=== PATIENT | male | born 1965 | race Caucasian/White ===

== ENCOUNTER 2016-12-20 22:29 | Emergency (ER) | payer OTHER ==
[2016-12-20 22:53] VITALS: RESP 18; TEMP 98.2
--- NOTE | 2016-12-21 00:30 | ED ---
Skin/Abscess/FB HPI - General Chief complaint: Skin/Abscess/Foreign Body Stated complaint: abcess right elbow Time Seen by Provider: 12/20/16 23:25 Source: patient, RN notes reviewed, old records reviewed Mode of arrival: ambulatory Limitations: no limitations - History of Present Illness Initial comments: This is a 51 year old male with right elbow pain and swelling for one hour. Patient reports he was playing cards and had his elbows on the table. Patient states that he has no fever, chills, decreased range of motion. Patient states that he feels a fluxtuant area on the elbow. He is right handed. Patient also states that he is switching doctors and needs refills of his depression and anxiety medication. He states his insurance swiched his PCP and he has an appointment with another doctor on December 31. Patient denies any fevers or chills, chest pain, shortness of breath, nausea, vomiting, sinus congestion, or other symptoms. - Related Data Home Medications Medication Instructions Recorded Confirmed ALPRAZolam [Xanax] 0.5 mg PO DAILY 08/01/16 12/20/16 FLUoxetine HCL [PROzac] 20 mg PO DAILY 08/01/16 12/20/16 QUEtiapine [SEROquel] 25 mg PO DAILY 08/01/16 12/20/16 Previous Rx's Medication Instructions Recorded ALPRAZolam [ALPRAZolam XR] 0.5 mg PO DAILY #2 tab 12/21/16 ALPRAZolam [Xanax] 0.5 mg PO DAILY PRN #12 tablet 12/21/16 FLUoxetine HCL [PROzac] 20 mg PO DAILY #15 cap 12/21/16 Allergies Allergy/AdvReac Type Severity Reaction Status Date / Time Penicillins Allergy hives Verified 12/20/16 22:53 Review of Systems ROS Statement: Those systems with pertinent positive or pertinent negative responses have been documented in the HPI. ROS Other: All systems not noted in ROS Statement are negative. Past Medical History Past Medical History: Asthma, COPD, Musculoskeletal Disorder Additional Past Medical History / Comment(s): hand pain History of Any Multi-Drug Resistant Organisms: None Reported Past Surgical History: Ear Surgery, Orthopedic Surgery Additional Past Surgical History / Comment(s): vasectomy/rt shoulder/carpal tunnel,LEFT KNEE SURGERY Past Anesthesia/Blood Transfusion Reactions: No Reported Reaction Past Psychological History: No Psychological Hx Reported Smoking Status: Current every day smoker Past Alcohol Use History: None Reported Additional Past Alcohol Use History / Comment(s): 1ppd since age of 14 Past Drug Use History: Marijuana Additional Drug Use History / Comment(s): every other day - Past Family History Father Family Medical History: Cancer General Exam Limitations: no limitations General appearance: alert, in no apparent distress Head exam: Present: atraumatic, normocephalic, normal inspection Eye exam: Present: normal appearance, PERRL, EOMI. Absent: scleral icterus, conjunctival injection, periorbital swelling ENT exam: Present: normal exam, mucous membranes moist Neck exam: Present: normal inspection. Absent: tenderness, meningismus, lymphadenopathy Respiratory exam: Present: normal lung sounds bilaterally. Absent: respiratory distress, wheezes, rales, rhonchi, stridor Cardiovascular Exam: Present: regular rate, normal rhythm, normal heart sounds. Absent: systolic murmur, diastolic murmur, rubs, gallop, clicks GI/Abdominal exam: Present: soft, normal bowel sounds. Absent: distended, tenderness, guarding, rebound, rigid Extremities exam: Present: normal inspection, full ROM, normal capillary refill. Absent: tenderness, pedal edema, joint swelling, calf tenderness Right Elbow exam: Present: swelling (evidence of olecranon bursitis. ). Absent: normal inspection Forearm Wrist exam: Present: normal inspection, full ROM Hand Wrist exam: Present: normal inspection, full ROM Back exam: Present: normal inspection Neurological exam: Present: alert, oriented X3, CN II-XII intact Psychiatric exam: Present: normal affect, normal mood Skin exam: Present: warm, dry, intact, normal color. Absent: rash Course Vital Signs 12/20/16 12/21/16 22:51 00:41 Temperature 98.2 F 98.2 F Pulse Rate 76 69 Respiratory 18 18 Rate Blood Pressure 133/76 152/68 O2 Sat by Pulse 968 H 98 Oximetry Medical Decision Making - Medical Decision Making Patient is a 51 year old male with olecranon bursitis, no erythema or fever or decreased range of motion.Patient denies any other symptoms besidesneeding medication refill. Patient given Rx for prozac and anxiety medication. Discussed follow up with orthopedic for drainage, and discussed return paramteres. Patient agrees to treatment plan and will comply. Disposition Clinical Impression: Olecranon bursitis, Medication refill Disposition: HOME SELF-CARE Condition: Good Instructions: Elbow Bursitis (ED), Medicine Refill (ED) Additional Instructions: Wear Karthik wrap is much as possible. Follow-up with primary care provider if symptoms continue to persist. Take anti-inflammatory medications. Prescriptions: ALPRAZolam [Xanax] 0.5 mg PO DAILY PRN #12 tablet PRN Reason: Anxiety ALPRAZolam [ALPRAZolam XR] 0.5 mg PO DAILY #2 tab FLUoxetine HCL [PROzac] 20 mg PO DAILY #15 cap Referrals: Mona Zhou MD [Primary Care Provider] - 1-2 days Derick Victoria DO [Doctor of Osteopathic Medicine] - 1-2 days Time of Disposition: 00:28
--- NOTE | 2016-12-21 00:39 | XR ---
EXAM: XR Right Elbow Complete, 3 or More Views. CLINICAL HISTORY: Reason: Pain TECHNIQUE: Frontal, lateral and oblique views of the right elbow. COMPARISON: No relevant prior studies available. FINDINGS: Bones/joints: Unremarkable. No acute fracture. No dislocation. Soft tissues: Unremarkable. IMPRESSION: No acute abnormality in the right elbow. If symptoms persist, consider splinting with repeat radiographs in 10-14 days.
[2016-12-21 00:41] VITALS: BP 152/68; PULSE 69
== END 2016-12-21 00:41 | disposition home or self-care (01) ==
LOC: EC 22:29
DX: M70.21 Olecranon bursitis, right elbow (principal); F17.200 Nicotine dependence, unspecified, uncomplicated; F41.9 Anxiety disorder, unspecified; F32.9 Major depressive disorder, single episode, unspecified; Z76.0 Encounter for issue of repeat prescription; Z88.0 Allergy status to penicillin; Z79.899 Other long term (current) drug therapy
CPT/HCPCS: 99283

== ENCOUNTER → 2017-03-05 | Outpatient (CLI) | payer OTHER ==
--- NOTE | 2017-03-05 23:19 | MR ---
EXAMINATION TYPE: MR brain wo/w con DATE OF EXAM: 03/05/2017 COMPARISON: NONE HISTORY: Headaches, Previous MRI on PACS TECHNIQUE: Multiplanar, multisequence images of the brain and brainstem is performed without and with IV contras t, utilizing 15 mL intravenous MultiHance . FINDINGS: There are scattered multiple high signal foci in the T2 and FLAIR images in the periventric ular white matter. The total number is approximately 10. The largest is in the right posterior pariet al lobe and measures 7 mm. Ventricles of normal size. There are small foci of increased signal in the mag bilaterally that measure up to 5 mm. There is no midline shift. There is no evidence of cortica l infarct. Corpus callosum appears normal. Sella turcica is normal. The contrast images show no pathologic enhancement. There is mucosal thickening in the ethmoid sinus. IMPRESSION: There are scattered white matter signal changes probably due to chronic small vessel isch emia. These appear not significantly different than last exam. Ethmoid sinusitis appears stable. No evidence of cortical infarct.
== END | disposition home or self-care (01) ==
LOC: RADMRIMAIN 21:04
PROVIDERS: ATTEND Nurse Practitioner
DX: R90.82 White matter disease, unspecified (principal); R51 Headache; R42 Dizziness and giddiness
CPT/HCPCS: 70553; A9577

== ENCOUNTER → 2017-05-14 | Outpatient (CLI) | payer OTHER ==
[2017-05-14 13:56] VITALS: BP 123/87; PULSE 81; RESP 16; TEMP 97.8
--- NOTE | 2017-05-14 14:10 | P.HPIM ---
History of Present Illness H&P Date: 05/14/17 Chief Complaint: headaches This is a 51-year-old patient referred by Dr. Ball for chronic pain in head and neck, worse on R side. Patient has been taking medications from primary care physician including Fioricet medications with some relief. Patient denies adverse drug effects from medications. Patient also denies new-onset weakness, bowel/bladder incontinence, or any other signs or symptoms of cauda equina syndrome. There are no signs of acute intoxication, and no indications of medication diversion or overuse. Patient notes that pain worsens significantly with BLAH and BLAH, and improves with BLAH, BLAH, and medication. Patient has used several types of medications for pain, including NSAIDS, Fioricet and BENZODIAZEPINES (Xanax). Patient HAS NOT had surgery. Patient HAS NOT had injections previously. Patient HAS NOT had physical therapy recently. In addition to above, 13-point review of systems is also negative for chest pain , shortness of breath, changes in vision, changes in hearing, new onset weakness , abdominal pain, diarrhea, extreme fatigue, malaise, fever, skin changes, homicidal or suicidal ideation, or bowel or bladder incontinence. Vital Signs: Reviewed in EMR Gen: WDWN, AAOx3, NAD HEENT: NCAT, EOMI, hearing grossly normal, tender to palpation over bilateral occipital ridges Pulm: resp unlabored Abd: soft, NT, ND Neck: supple, trachea midline ROM in flexion cervical spine: reduced ROM in extension cervical spine: reduced Cervical paravertebral tenderness: + Cervical Facet tenderness: + R > L Spurling's: neg Neuro: CN II-XII grossly intact, muscle strength lower extremities PRESERVED Past Medical History Past Medical History: Asthma, COPD, Musculoskeletal Disorder Additional Past Medical History / Comment(s): hand pain History of Any Multi-Drug Resistant Organisms: None Reported Past Surgical History: Ear Surgery, Orthopedic Surgery Additional Past Surgical History / Comment(s): vasectomy/rt shoulder/carpal tunnel,LEFT KNEE SURGERY Past Anesthesia/Blood Transfusion Reactions: No Reported Reaction Past Psychological History: No Psychological Hx Reported Smoking Status: Current every day smoker Past Alcohol Use History: None Reported Additional Past Alcohol Use History / Comment(s): 1ppd since age of 14 Past Drug Use History: Marijuana Additional Drug Use History / Comment(s): every other day - Past Family History Father Family Medical History: Cancer Medications and Allergies Home Medications Medication Instructions Recorded Confirmed Type ALPRAZolam [Xanax] 0.5 mg PO DAILY 08/01/16 12/20/16 History FLUoxetine HCL [PROzac] 20 mg PO DAILY 08/01/16 12/20/16 History QUEtiapine [SEROquel] 25 mg PO DAILY 08/01/16 12/20/16 History ALPRAZolam [ALPRAZolam XR] 0.5 mg PO DAILY #2 tab 12/21/16 Rx ALPRAZolam [Xanax] 0.5 mg PO DAILY PRN #12 tablet 12/21/16 Rx FLUoxetine HCL [PROzac] 20 mg PO DAILY #15 cap 12/21/16 Rx Allergies Allergy/AdvReac Type Severity Reaction Status Date / Time Penicillins Allergy hives Verified 12/20/16 22:53 Results Comments: MRI brain without contrast demonstrates moderate mucosal thickening within the ethmoid air cells and mild with the right sphenoid sinus and frontal sinuses quilter intact. There is a mild burden of bright white matter changes and cerebral hemispheres additional foci within the bilateral mag. The findings are nonspecific. There is no acute intracranial abnormality seen. Assessment and Plan (1) Occipital neuralgia Status: Chronic (2) Chronic pain syndrome Status: Chronic Plan: 1. Explanation: Opioid and psychological risk scores were reviewed. Diagnoses , prognoses, and multiple treatment options including but not limited to physical therapy, interventional therapies, adjuvant medical therapies, narcotic medication therapies, and surgery were discussed with the patient and all questions were answered to the patient's satisfaction. 2. Opioid agreement: no opioids prescribed today 3. Counseling: The patient was counseled extensively on SMOKING CESSATION, BODY MASS INDEX, EXERCISE. Specifically, the patient was instructed regarding the importance of smoking cessation, weight control, and exercise in the context of both chronic pain and overall health. 4. Procedures: bilateral occipital nerve block; will consider MRI C-spine if little relief 5. Consultations: none 6. Investigations: none 7. Medications: none prescribed 8. Disposition: f/u for procedure as scheduled PQRS measures: 1-Patient's medications are documented in the chart. 2-Tobacco use is positive/negative, counseling given 3-Patient has not had a pneumococcal vaccine. 4-Advanced care planning discussed, patient unable to give. 5-Opioid contract NOT signed with the patient. 6-Pain positive, follow-up visit or procedure scheduled 7-Patient's blood pressure measured and documented, and patient will follow up with the primary care due to hypertension. 8-Patient's weight was measured, and body mass index ABOVE the normal limits, and counseling was done. Patient instructed to follow up with PCP. 9-Patient WAS NOT identified as an unhealthy alcohol user. Time with Patient: Greater than 30
== END | disposition home or self-care (01) ==
LOC: PNWHC3 13:38
PROVIDERS: ATTEND Anesthesiology
DX: M54.81 Occipital neuralgia (principal); G89.4 Chronic pain syndrome; J44.9 Chronic obstructive pulmonary disease, unspecified; F17.200 Nicotine dependence, unspecified, uncomplicated; Z88.0 Allergy status to penicillin; Z79.899 Other long term (current) drug therapy
CPT/HCPCS: 99211

== ENCOUNTER → 2017-07-08 | Outpatient (CLI) | payer OTHER ==
--- NOTE | 2017-07-08 14:37 | MR ---
EXAMINATION TYPE: MR cervical spine wo con DATE OF EXAM: 07/08/2017 COMPARISON: Correlation MRI brain 03/05/2017 HISTORY: 51-year-old male Spondylosis without myelopathy or radiculopathy, headache. TECHNIQUE: Multiplanar, multisequence images of the cervical spine were acquired. FINDINGS: No craniocervical junction abnormality, predental space widening, or prevertebral soft tissue swellin g. Incidental megacisterna magna versus a right paramedian posterior 3.7 cm arachnoid cyst. Alignment is maintained. Mild heterogeneity of marrow signal without suspicious bone marrow replacement. Intervertebral discs are degenerated and mildly desiccated. Posterior disc bulging at C5-C6 and C6-C7 . Ligamentum flavum thickening at C6/C7. Scattered mild facet and uncovertebral joint arthropathy mid to lower cervical spine. At C2-C3, no canal or foraminal stenosis. Left-sided facet arthropathy. At C3-C4, facet and uncovertebral joint arthropathy, greater on the right where there is mild neurofo raminal narrowing. No spinal canal stenosis. At C4-C5, there is mild facet degenerative change without significant canal or foraminal stenosis. At C5-C6, there is posterior disc bulge and mild facet and uncovertebral joint degenerative change. N o significant neural foraminal stenosis. There is mild narrowing of the spinal canal with impression on the ventral thecal sac but no cord abutment or cord flattening. At C6-C7, there is posterior disc bulge with uncovertebral joint and facet degenerative change. Mcqueen es result in moderate right and mild left neuroforaminal stenosis with mild spinal canal stenosis. No cord abutment or cord flattening. At C7-T1, facet degenerative change without canal or foraminal stenosis. Normal course, caliber, and signal intensity of the cervical cord. No prevertebral or paravertebral soft tissue abnormality seen. IMPRESSION: Mild to moderate spondylitic changes particularly at C5-C6 and C6/C7 where there is mild narrowing of the spinal canal. Moderate right neural foraminal stenosis at C6-C7. No johnson canal compromise or co rd compression.
== END | disposition home or self-care (01) ==
LOC: RADMRIMAIN 07:51
PROVIDERS: ATTEND Anesthesiology
DX: M48.02 Spinal stenosis, cervical region (principal); M47.812 Spondylosis without myelopathy or radiculopathy, cervical region; M99.71 Connective tissue and disc stenosis of intervertebral foramina of cervical region
CPT/HCPCS: 72141

== ENCOUNTER → 2017-07-21 | Outpatient (CLI) | payer OTHER ==
[2017-07-21 11:57] VITALS: BP 148/98; PULSE 74; RESP 16
--- NOTE | 2017-07-21 12:09 | P.PN ---
Progress Note - Text Progress Note Date: 07/21/17 Patient returns for followup for chronic headache and neck pain, the former of which has improved significantly (>50% for > 2 weeks) with occipital nerve blocks, but patient continues to have severe pain and pressure in his neck with radiation to both shoulders. Patient continues on Fioricet medications for pain from PCP with good relief. Patient denies adverse drug effects from medications. Today, pt denies new-onset weakness, bowel/bladder incontinence, or any other signs or symptoms of cauda equina syndrome. There are no signs of acute intoxication, and no indications of medication diversion or overuse. In addition to above, 13-point review of systems is also negative for chest pain , shortness of breath, changes in vision, changes in hearing, new onset weakness , abdominal pain, diarrhea, extreme fatigue, malaise, fever, skin changes, homicidal or suicidal ideation, or bowel or bladder incontinence. Vital Signs: Reviewed in EMR Gen: WDWN, AAOx3, NAD HEENT: NCAT, EOMI, hearing grossly normal Pulm: resp unlabored Abd: soft, NT, ND Neck: supple, trachea midline ROM in flexion cervical spine: reduced ROM in extension cervical spine: reduced Cervical paravertebral tenderness: + Cervical Facet tenderness: + bilateral, R > L Spurling's: neg Upper extremity: decreased claims adjustor strength, decreased shoulder abduction ROM, and decreased elbow flexion/extension secondary to pain Neuro: CN II-XII grossly intact, muscle strength lower extremities PRESERVED Imaging: MRI cervical spine without contrast demonstrates facet and uncovertebral joint hypertrophy at the C3-C4, C4-C5, C5-C6, and C6-C7 levels. At the C5-C6 level there is also mild narrowing of the spinal canal with compression of the ventral thecal sac without cord abutment or flattening. At the C6-C7 level there is moderate right and mild left neural foraminal stenosis with mild spinal canal stenosis. Cervical spinal cord is grossly normal. Assessment: 1. cervical spondylosis 2. occipital neuralgia 3. chronic pain syndrome Plan: 1. Explanation: Opioid and psychological risk scores were reviewed. Diagnoses , prognoses, and multiple treatment options including but not limited to physical therapy, interventional therapies, adjuvant medical therapies, narcotic medication therapies, and surgery were discussed with the patient and all questions were answered to the patient's satisfaction. 2. Opioid agreement: no opioids prescribed today 3. Counseling: The patient was counseled extensively on SMOKING CESSATION, BODY MASS INDEX, EXERCISE. Specifically, the patient was instructed regarding the importance of smoking cessation, weight control, and exercise in the context of both chronic pain and overall health. 4. Procedures: CMBB series C4-C5, C5-C6, C6-C7 bilateral 5. Consultations: None 6. Investigations: none 7. Medications: none prescribed 8. Disposition: f/u for procedure as scheduled PQRS measures: 1-Patient's medications are documented in the chart. 2-Tobacco use is positive, counseling given 3-Patient has not had a pneumococcal vaccine. 4-Advanced care planning discussed, patient unable to give. 5-Opioid contract NOT signed with the patient. 6-Pain positive, follow-up visit or procedure scheduled 7-Patient's blood pressure measured and documented, and patient will follow up with the primary care due to hypertension. 8-Patient's weight was measured, and body mass index ABOVE the normal limits, and counseling was done. Patient instructed to follow up with PCP. 9-Patient WAS NOT identified as an unhealthy alcohol user.
== END | disposition home or self-care (01) ==
LOC: PNWHC3 11:39
PROVIDERS: ATTEND Anesthesiology
DX: M47.812 Spondylosis without myelopathy or radiculopathy, cervical region (principal); M54.81 Occipital neuralgia; G89.4 Chronic pain syndrome; Z79.899 Other long term (current) drug therapy
CPT/HCPCS: 99211

== ENCOUNTER 2017-07-24 08:11 | Emergency (ER) | payer OTHER ==
[2017-07-24 08:19] VITALS: BP 138/88; PULSE 85; RESP 18; TEMP 98.3
[2017-07-24] MEDS ORDERED: ONDANSETRON 4 MG ODT STARTER PACK 2 TAB BTL PO STA (08:29)
--- NOTE | 2017-07-24 08:35 | ED ---
General Adult HPI - General Chief complaint: Abdominal Pain Stated complaint: stomach pain Time Seen by Provider: 07/24/17 08:18 Source: patient, RN notes reviewed Mode of arrival: ambulatory Limitations: no limitations - History of Present Illness Initial comments: Patient's a 51-year-old male who presents emergency room today with a chief complaint of nausea vomiting over the last 2 days. Patient does admit that she' s had some abdominal cramping. She denies any other complaints. Admits that his has similar symptoms at home. Patient denies any recent fever, chills , shortness of breath, chest pain, back pain, numbness or tingling, dysuria or hematuria, constipation or diarrhea, headaches or visual changes, or any other complaints. - Related Data Home Medications Medication Instructions Recorded Confirmed ALPRAZolam [Xanax] 1 mg PO BID 05/14/17 07/24/17 Gabapentin 600 mg PO TID 05/14/17 07/24/17 Ibuprofen [Ibuprofen] 800 mg PO BID PRN 05/14/17 07/24/17 Beclomethasone Dipropionate [Qvar 1 puff INHALATION RT-BID 06/25/17 07/24/17 40 mcg] FLUoxetine HCL [PROzac] 40 mg PO DAILY 07/24/17 07/24/17 QUEtiapine [SEROquel] 50 mg PO DAILY 07/24/17 07/24/17 Previous Rx's Medication Instructions Recorded Ondansetron Odt [Zofran ODT] 4 mg PO Q8HR PRN #20 tab 07/24/17 Allergies Allergy/AdvReac Type Severity Reaction Status Date / Time Penicillins Allergy hives Verified 07/24/17 08:27 Review of Systems ROS Statement: Those systems with pertinent positive or pertinent negative responses have been documented in the HPI. ROS Other: All systems not noted in ROS Statement are negative. Past Medical History Past Medical History: Asthma, COPD, Musculoskeletal Disorder Additional Past Medical History / Comment(s): Hand pain. states her has the starting of Emphysema. History of Any Multi-Drug Resistant Organisms: None Reported Past Surgical History: Ear Surgery, Orthopedic Surgery Additional Past Surgical History / Comment(s): vasectomy/rt shoulder/carpal tunnel,LEFT KNEE SURGERY, Past Anesthesia/Blood Transfusion Reactions: No Reported Reaction Past Psychological History: No Psychological Hx Reported Smoking Status: Current every day smoker Past Alcohol Use History: Rare Past Drug Use History: Marijuana - Past Family History Father Family Medical History: Cancer General Exam - General Exam Comments Initial Comments: General: The patient is awake and alert, in no distress, and does not appear acutely ill. Eye: Pupils are equal, round and reactive to light, extra-ocular movements are intact. No nystagmus. There is normal conjunctiva bilaterally. No signs of icterus. Ears, nose, mouth and throat: There are moist mucous membranes and no oral lesions. Neck: The neck is supple, there is no tenderness or JVD. Cardiovascular: There is a regular rate and rhythm. No murmur, rub or gallop is appreciated. Respiratory: Lungs are clear to auscultation, respirations are non-labored, breath sounds are equal. No wheezes, stridor, rales, or rhonchi. Gastrointestinal: Soft, non-distended, non-tender abdomen without masses or organomegaly noted. There is no rebound or guarding present. No CVA tenderness. Bowel sounds are unremarkable. Musculoskeletal: Normal ROM, no tenderness. Strength 5/5. Sensation intact. Pulses equal bilaterally 2+. Neurological: A&O x 3. CN II-XII intact, There are no obvious motor or sensory deficits. Coordination appears grossly intact. Speech is normal. Skin: Skin is warm and dry and no rashes or lesions are noted. Psychiatric: Cooperative, appropriate mood & affect, normal judgment. Limitations: no limitations Course Vital Signs 07/24/17 08:16 Temperature 98.3 F Pulse Rate 85 Respiratory 18 Rate Blood Pressure 138/88 O2 Sat by Pulse 97 Oximetry Medical Decision Making - Medical Decision Making Patient abdomen soft nontender. Vitals are stable. Patient's had nausea vomiting for the past 2 days. fever. Patient denies any signs of blood. At this time will be discharged home with Zofran starter pack and Zofran to go home with. Advised return if symptoms increase worsen or for any other concerns. Disposition Clinical Impression: Nausea & vomiting Disposition: HOME SELF-CARE Condition: Good Instructions: Acute Nausea and Vomiting (ED) Additional Instructions: Please use medication as discussed. Please follow-up with family doctor in the next 2 days of symptoms have not improved. Please return to emergency room if the symptoms increase or worsen or for any other concerns. Prescriptions: Ondansetron Odt [Zofran ODT] 4 mg PO Q8HR PRN #20 tab PRN Reason: Nausea Referrals: Mona Zhou MD [Primary Care Provider] - 1-2 days Time of Disposition: 08:34
== END 2017-07-24 08:40 | disposition home or self-care (01) ==
LOC: EC 08:11
DX: R11.2 Nausea with vomiting, unspecified (principal); J44.9 Chronic obstructive pulmonary disease, unspecified; F17.200 Nicotine dependence, unspecified, uncomplicated; Z88.0 Allergy status to penicillin; Z79.51 Long term (current) use of inhaled steroids; Z79.899 Other long term (current) drug therapy
CPT/HCPCS: 99283; S0119

== ENCOUNTER 2017-07-28 08:20 | Day surgery (SDC) | payer OTHER ==
[2017-07-28 09:05] VITALS: TEMP 98.1
[2017-07-28] MEDS ORDERED: LACTATED RINGERS 1,000 ML IV ONE (09:09)
[2017-07-28] MEDS ORDERED: IV FLUID CONTINUATION 1,000 ML IV ONE (10:13)
[2017-07-28 10:16] VITALS: RESP 18
[2017-07-28 10:36] VITALS: BP 152/94; PULSE 65
--- NOTE | 2017-07-28 10:47 | FL ---
Fluoroscopy History: Pain 48 secs fluoro
[2017-07-28] MEDS ORDERED: LACTATED RINGERS 1,000 ML IV SCH (11:30)
--- NOTE | 2017-07-28 14:49 | P.PCN ---
Date of Procedure: 07/28/17 Pathology: none sent Condition: stable Disposition: PACU Description of Procedure: PREOPERATIVE DIAGNOSIS: Cervical spondylosis without myelopathy, cervicogenic headache. POSTOPERATIVE DIAGNOSIS: same PROCEDURES: Diagnostic bilateral C4-C5, C5-C6, C6-C7 medial branch block with fluoroscopic guidance ANESTHESIA: Local with 1% lidocaine; conscious sedation EBL: Minimal PROCEDURE INDICATION: This is a 51-year-old male patient with neck pain and headaches secondary to cervical arthropathy unresponsive to more conservative treatments. No use of blood thinners. PROCEDURE DESCRIPTION / TECHNIQUE: The patient was seen and identified in the preoperative area. Risks, benefits, complications, and alternatives were discussed with the patient (including but not limited to incomplete pain relief , bleeding, infection, nerve damage, and allergies to medications), the patient agreed to proceed with the procedure and signed the consent after all questions were answered. IV was started. Vital signs remained stable throughout the procedure. Patient was taken to the OR and time out was completed. The patient was placed in the prone position on the procedure table. A pillow was placed under the patients chest to increase the cervical interlaminar space. The cervical area was prepped and draped in the usual sterile fashion. Critical pause was taken. Vital signs were closely monitored during the procedure. Conscious sedation was used during the procedure to decrease patients anxiety. Using cross-table lateral fluoroscopy, the centroid of the trapezoid of right C4 , was identified, marked, and localized with 1% lidocaine. Subsequently, a 25 G spinal needle was advanced guided by fluoroscopy to the centroid of the trapezoid of C4. Needle tip position was confirmed at the centroid of the trapezoids of C4 with anteroposterior fluoroscopy. Subsequently, 1 ml of a combination of 10 mg Decadron and 5 ml of preservative-free Bupivacaine 0.5% was injected after negative aspiration for blood and CSF. Needle was then removed intact the same procedure was repeated at the right C5 and C6 levels, and then again at the left C4, C5, and C6 levels. COMPLICATIONS: No acute complications. COMMENTS: DISPOSITION / PLANS: The patient was placed in a supine position and transferred to the recovery area in a stable condition for observation and was discharged from the recovery room after meeting discharge criteria. Home discharge instructions given to the patient by the staff. The patient was reexamined prior to discharge. The patient will schedule a repeat CMBB in 4-6 weeks.
== END 2017-07-28 10:56 | disposition home or self-care (01) ==
LOC: ORPAIN 08:20
PROVIDERS: ATTEND Anesthesiology
DX: G89.4 Chronic pain syndrome (principal); M47.22 Other spondylosis with radiculopathy, cervical region; R51 Headache; M54.81 Occipital neuralgia; Z79.891 Long term (current) use of opiate analgesic
CPT/HCPCS: 64490; 64491; 64492; J2250; J1100; 99152

== ENCOUNTER → 2017-10-19 | Outpatient (CLI) | payer OTHER ==
--- NOTE | 2017-10-19 13:21 | P.PN ---
Progress Note - Text Progress Note Date: 10/19/17 Patient returns for followup for chronic neck pain with radiation to the shoulders. Patient recently underwent bilateral CMBB x 2, which provided > 50% relief for one week apiece. Patient continues on opioid medications for pain with good relief. Patient denies adverse drug effects from medications. Today , pt denies new-onset weakness, bowel/bladder incontinence, or any other signs or symptoms of cauda equina syndrome. There are no signs of acute intoxication, and no indications of medication diversion or overuse. In addition to above, 13-point review of systems is also negative for chest pain , shortness of breath, changes in vision, changes in hearing, new onset weakness , abdominal pain, diarrhea, extreme fatigue, malaise, fever, skin changes, homicidal or suicidal ideation, or bowel or bladder incontinence. Vital Signs: Reviewed in EMR Gen: WDWN, AAOx3, NAD HEENT: NCAT, EOMI, hearing grossly normal Pulm: resp unlabored Abd: soft, NT, ND Neck: supple, trachea midline ROM in flexion cervical spine: reduced ROM in extension cervical spine: reduced Cervical paravertebral tenderness: + L > R Cervical Facet tenderness: + L >> R Spurling's: + LUE Upper extremity: decreased grocery clerk checking strength secondary to pain Neuro: CN II-XII grossly intact, muscle strength lower extremities PRESERVED Imaging: Reviewed in EMR Assessment: 1. cervical spondylosis 2. cervicogenic headache 3. occipital neuralgia Plan: 1. Explanation: Opioid and psychological risk scores were reviewed. Diagnoses , prognoses, and multiple treatment options including but not limited to physical therapy, interventional therapies, adjuvant medical therapies, narcotic medication therapies, and surgery were discussed with the patient and all questions were answered to the patient's satisfaction. 2. Opioid agreement: no opioids prescribed today 3. Counseling: The patient was counseled extensively on SMOKING CESSATION, BODY MASS INDEX, EXERCISE. Specifically, the patient was instructed regarding the importance of smoking cessation, weight control, and exercise in the context of both chronic pain and overall health. 4. Procedures: left cervical RFA C4-C5, C5-C6, C6-C7 if possible 5. Consultations: None 6. Investigations: none 7. Medications: none prescribed 8. Disposition: f/u for procedure as scheduled PQRS measures: 1-Patient's medications are documented in the chart. 2-Tobacco use is positive, counseling given 3-Patient has not had a pneumococcal vaccine. 4-Advanced care planning discussed, patient unable to give. 5-Opioid contract NOT signed with the patient. 6-Pain positive, follow-up visit or procedure scheduled 7-Patient's blood pressure measured and documented, and patient will follow up with the primary care due to hypertension. 8-Patient's weight was measured, and body mass index ABOVE the normal limits, and counseling was done. Patient instructed to follow up with PCP. 9-Patient WAS NOT identified as an unhealthy alcohol user.
[2017-10-19 13:26] VITALS: BP 109/77; PULSE 81; RESP 16; TEMP 98
== END | disposition home or self-care (01) ==
LOC: PNWHC3 12:58
PROVIDERS: ATTEND Anesthesiology
DX: M47.812 Spondylosis without myelopathy or radiculopathy, cervical region (principal); M54.81 Occipital neuralgia; Z79.891 Long term (current) use of opiate analgesic
CPT/HCPCS: 99211

== ENCOUNTER 2017-11-18 09:21 | Day surgery (SDC) | payer OTHER ==
[2017-11-16 10:36] VITALS: BMI 26.6
[~2017-11-18 09:21] MED LIST: LACTATED RINGERS 1,000 ML IV SCH
[2017-11-18 10:21] VITALS: RESP 16
[2017-11-18] MEDS ORDERED: LIDOCAINE 1% 20 ML VIAL (10MG/ML) FOR IV START INTRADERMA ONE (10:31)
--- NOTE | 2017-11-18 11:56 | P.PCN ---
Date of Procedure: 11/18/17 Procedure(s) Performed: PREOPERATIVE DIAGNOSIS: 1-Cervical spondylosis with Facet Arthropathy without myelopathy. 2-cervicogenic headache POSTOPERATIVE DIAGNOSIS: 1-Cervical spondylosis with Facet Arthropathy without myelopathy. 2-cervicogenic headache PROCEDURES: Radiofrequency thermocoagulation, left C4-5, C5-6 , C6-7 medial branch with Fluroscopy Guidence ANESTHESIA: Local with 1% lidocaine 3 ml , moderate sedation with fentanyl 50 micrograms and Versed.2 mg EBL: Minimal PROCEDURE INDICATION: The patient with neck pain secondary to cervical arthropathy who had more than 50% relief of her pain with previous diagnostic cervical medial branch block. PROCEDURE DESCRIPTION / TECHNIQUE: The patient was seen and identified in the preoperative area. Risks, benefits, complications, and alternatives were discussed with the patient, the patient agreed to proceed with the procedure and signed the consent. IV was started. Vital signs remained stable throughout the procedure. Patient was taken to the OR and time out was completed. The patient was placed in the prone position on the procedure table. A pillow was placed under the patients chest to increase the cervical interlaminar space. The cervical area was prepped and draped in the usual sterile fashion. Critical pause was taken. Vital signs were closely monitored during the procedure. Conscious sedation was used during the procedure to decrease patients anxiety. Using cross-table lateral fluoroscopy, the centroid of the trapezoid of left C4 , C5, and C6 were identified, marked, and localized with 1% lidocaine. Subsequently, a 21 [id number] radiofrequency cannula with a 10-mm active tip was advanced guided by fluoroscopy to the centroid of the trapezoid of left C4, C5, and C6 . Needle tip position was confirmed at the centroid of the trapezoids of left C4, C5, and C6 with anteroposterior fluoroscopy. Each site then underwent sensory testing at 50 Hz and 0 to 1 volt and motor testing at 2 Hz and 0 to 3 volt with local stimulation, but no radicular symptoms down the arm. Thereafter the left C4, C5 and C6 sites underwent radiofrequency thermocoagulation at 80 degrees celsius for 90 seconds after injecting 0.5 ml of PF lidocaine 1%. After thermocoagulation, 1 ml of the block solution containing Kenalog 40 mg and 3 mL of preservative-free normal saline was injected at the left C4, C5, and C6 levels after negative aspiration of CSF and blood and with no paresthesias. Cannulas were retracted while injecting lidocaine 1% until the needle is out. Skin was cleansed and bandages were applied. COMPLICATIONS: No acute complications. COMMENTS: DISPOSITION / PLANS: The patient was placed in a supine position and transferred to the recovery area in a stable condition for observation and was discharged from the recovery room after meeting discharge criteria. Home discharge instructions given to the patient by the staff. The patient was reexamined prior to discharge. The patient will schedule a follow up in the clinic in 2-4 weeks.
[2017-11-18] MEDS ORDERED: IV FLUID CONTINUATION 1,000 ML IV ONE (12:22)
[2017-11-18 12:51] VITALS: BP 126/81; PULSE 77
--- NOTE | 2017-11-18 13:34 | FL ---
EXAMINATION TYPE: FL guided pain mgmt statistic DATE OF EXAM: 11/18/2017 COMPARISON: NONE HISTORY: Neck pain TECHNIQUE: Fluoroscopy. FINDINGS/IMPRESSION: Fluoroscopic guidance was provided during procedure performed by Dr. Ruth. A total of 10 seconds of fluoroscopic time was utilized during the procedure and 3 spot images was a cquired demonstrating localization at multiple cervical levels.
== END 2017-11-18 12:56 | disposition home or self-care (01) ==
LOC: ORPAIN 09:21
PROVIDERS: ATTEND Specialist
DX: M47.812 Spondylosis without myelopathy or radiculopathy, cervical region (principal); I10 Essential (primary) hypertension; J44.9 Chronic obstructive pulmonary disease, unspecified; Z88.0 Allergy status to penicillin
CPT/HCPCS: 64633; 64634; J2250; J3301; J3010; 99152; 99153

== ENCOUNTER 2017-12-28 06:56 | Day surgery (SDC) | payer OTHER ==
[2017-12-28 08:07] VITALS: RESP 18; TEMP 97.5
--- NOTE | 2017-12-28 08:44 | P.PCN ---
Date of Procedure: 12/28/17 Procedure(s) Performed: PREOPERATIVE DIAGNOSIS: Cervical spondylosis with Facet Arthropathy without myelopathy. 2-cervicogenic headache POSTOPERATIVE DIAGNOSIS: Cervical spondylosis with Facet Arthropathy without myelopathy. 2-cervicogenic headache PROCEDURES: Radiofrequency thermocoagulation, Right C4, C5, C6 medial branch with Fluroscopy Guidence ANESTHESIA: Local with 1% lidocaine 4 ml , moderate sedation with fentanyl 50 micrograms . EBL: Minimal PROCEDURE INDICATION: The patient with neck pain secondary to cervical arthropathy who had more than 50% relief of her pain with previous diagnostic cervical medial branch block. PROCEDURE DESCRIPTION / TECHNIQUE: The patient was seen and identified in the preoperative area. Risks, benefits, complications, and alternatives were discussed with the patient, the patient agreed to proceed with the procedure and signed the consent. IV was started. Vital signs remained stable throughout the procedure. Patient was taken to the OR and time out was completed. The patient was placed in the prone position on the procedure table. A pillow was placed under the patients chest to increase the cervical interlaminar space. The cervical area was prepped and draped in the usual sterile fashion. Critical pause was taken. Vital signs were closely monitored during the procedure. Conscious sedation was used during the procedure to decrease patients anxiety. Using cross-table lateral fluoroscopy, the centroid of the trapezoid of right C4, C5, and C6 were identified, marked, and localized with 1% lidocaine. Subsequently, a 20 -az radiofrequency cannula with a 10-mm active tip was advanced guided by fluoroscopy to the centroid of the trapezoid of right C4 , C5, and C6 . Needle tip position was confirmed at the centroid of the trapezoids of C4, C5, and C6 with anteroposterior fluoroscopy. Each site then underwent sensory testing at 50 Hz and 0 to 1 volt and motor testing at 2 Hz and 0 to 3 volt with local stimulation, but no radicular symptoms down the arm. Thereafter right C4,C5 and C6 sites underwent radiofrequency thermocoagulation at 80 degrees celsius for 90 seconds after injecting 0.5 ml of PF lidocaine 1% . After thermocoagulation, 1 ml of the block solution containing Kenalog 40 mg and 5 mL of preservative-free normal saline was injected at the right C4, C5, and C6 levels after negative aspiration of CSF and blood and with no paresthesias. Cannulas were retracted while injecting lidocaine 1% until the needle is out. Skin was cleansed and bandages were applied. COMPLICATIONS: No acute complications. COMMENTS: DISPOSITION / PLANS: The patient was placed in a supine position and transferred to the recovery area in a stable condition for observation and was discharged from the recovery room after meeting discharge criteria. Home discharge instructions given to the patient by the staff. The patient was reexamined prior to discharge. The patient will schedule a follow up in the clinic in 2-4 weeks.
[2017-12-28] MEDS ORDERED: IV FLUID CONTINUATION 650 ML IV ONE (08:54)
--- NOTE | 2017-12-28 09:04 | FL ---
EXAMINATION TYPE: FL guided pain mgmt statistic DATE OF EXAM: 12/28/2017 COMPARISON: NONE HISTORY: Neck pain TECHNIQUE: Fluoroscopy. FINDINGS/IMPRESSION: Fluoroscopic guidance was provided during procedure performed by Dr. Stark. A total of 22 seconds of fluoroscopic time was utilized during the procedure and 2 spot images was a cquired during a cervical injection demonstrating localization over the cervical spine..
[2017-12-28 09:11] VITALS: BP 133/88; PULSE 74
== END 2017-12-28 09:33 | disposition home or self-care (01) ==
LOC: ORPAIN 06:56
PROVIDERS: ATTEND Specialist
DX: M47.812 Spondylosis without myelopathy or radiculopathy, cervical region (principal); R51 Headache; I10 Essential (primary) hypertension; J44.9 Chronic obstructive pulmonary disease, unspecified; Z88.0 Allergy status to penicillin
CPT/HCPCS: 64633; 64634; J3301; J3010; 99152

== ENCOUNTER → 2018-02-03 | Outpatient (CLI) | payer OTHER ==
[2018-02-03 12:51] VITALS: BP 125/80; PULSE 95; RESP 18
--- NOTE | 2018-02-03 12:56 | P.PN ---
Progress Note - Text Progress Note Date: 02/03/18 Patient returns for followup for chronic neck pain with radiation to the shoulders. Patient recently underwent bilateral cervical RFA, which provided relief of headache pain, but patient is still having some neck and shoulder pain and feels crunching and snapping in his neck with some radiation to shoulders. Patient continues on Fioricet medications for pain from PCP with good relief. Patient denies adverse drug effects from medications. Today, pt denies new-onset weakness, bowel/bladder incontinence, or any other signs or symptoms of cauda equina syndrome. There are no signs of acute intoxication, and no indications of medication diversion or overuse. In addition to above, 13-point review of systems is also negative for chest pain , shortness of breath, changes in vision, changes in hearing, new onset weakness , abdominal pain, diarrhea, extreme fatigue, malaise, fever, skin changes, homicidal or suicidal ideation, or bowel or bladder incontinence. Vital Signs: Reviewed in EMR Gen: WDWN, AAOx3, NAD HEENT: NCAT, EOMI, hearing grossly normal Pulm: resp unlabored Abd: soft, NT, ND Neck: supple, trachea midline ROM in flexion cervical spine: reduced ROM in extension cervical spine: reduced Cervical paravertebral tenderness: + L > R Cervical Facet tenderness: + L >> R Imaging: Reviewed in EMR Assessment: 1. cervical spondylosis 2. cervicogenic headache 3. occipital neuralgia Plan: 1. Explanation: Opioid and psychological risk scores were reviewed. Diagnoses , prognoses, and multiple treatment options including but not limited to physical therapy, interventional therapies, adjuvant medical therapies, narcotic medication therapies, and surgery were discussed with the patient and all questions were answered to the patient's satisfaction. 2. Opioid agreement: no opioids prescribed today 3. Counseling: The patient was counseled extensively on SMOKING CESSATION, BODY MASS INDEX, EXERCISE. Specifically, the patient was instructed regarding the importance of smoking cessation, weight control, and exercise in the context of both chronic pain and overall health. 4. Procedures: none for now, consider shoulder and cervical paraspinal TPI in future 5. Consultations: None 6. Investigations: none 7. Medications: none prescribed 8. Disposition: f/u for re-eval in 8 weeks PQRS measures: 1-Patient's medications are documented in the chart. 2-Tobacco use is positive, counseling given 3-Patient has not had a pneumococcal vaccine. 4-Advanced care planning discussed, patient unable to give. 5-Opioid contract NOT signed with the patient. 6-Pain positive, follow-up visit or procedure scheduled 7-Patient's blood pressure measured and documented, and patient will follow up with the primary care due to hypertension. 8-Patient's weight was measured, and body mass index ABOVE the normal limits, and counseling was done. Patient instructed to follow up with PCP. 9-Patient WAS NOT identified as an unhealthy alcohol user.
== END | disposition home or self-care (01) ==
LOC: PNWHC3 12:22
PROVIDERS: ATTEND Anesthesiology
DX: G89.29 Other chronic pain (principal); M54.2 Cervicalgia; M25.519 Pain in unspecified shoulder; M47.812 Spondylosis without myelopathy or radiculopathy, cervical region; M54.81 Occipital neuralgia; R51 Headache; F17.200 Nicotine dependence, unspecified, uncomplicated; Z79.891 Long term (current) use of opiate analgesic; Z71.6 Tobacco abuse counseling
CPT/HCPCS: 99211

== ENCOUNTER → 2018-03-31 | Outpatient (CLI) | payer OTHER ==
--- NOTE | 2018-03-31 11:42 | P.PAINPG ---
Subjective Progress Note Date: 03/31/18 Principal diagnosis: Cervical degenerative disc disease This is a pleasant 52-year-old gentleman who has a history of significant neck pain. He is undergone previous diagnostic medial branch nerve blocks as well as bilateral radio frequency ablation. He reports that these things were helpful for him however he continues to have significant pain in his base of his neck. He denies any cervical or lumbar radicular symptoms. He denies any signs or symptoms of spinal cord compression. Objective - Vital Signs Vital signs: Vital Signs Temp 97.6 F 03/31/18 11:21 Pulse 91 03/31/18 11:21 Resp 18 03/31/18 11:21 BP 110/77 03/31/18 11:21 Pulse Ox Intake & Output 03/30/18 03/31/18 03/31/18 18:59 06:59 18:59 Weight 76.204 kg - Exam General: The patient is alert and oriented. Patient is not sedated Patient answers all question appropriately. Cardiac: Heart is regular in rate and rhythm Respiratory: Clear to auscultation. No audible wheezes. Abdomen: Soft nontender nondistended. Lower extremities: Strength is normal bilaterally. Sensation is normal bilaterally. Reflexes are preserved and symmetric bilaterally. Straight leg raise is negative bilaterally. Cervical spine: Maneuvers of flexion and extension increased pressure in the patient's cervical spine. He has good strength bilaterally. Facet loading maneuvers are positive bilaterally. Neurologic: He has good sensation intact in his upper extremity. Reflexes are blunted but symmetric at the biceps, triceps, brachial radialis bilaterally. Assessment and Plan (1) Cervical spondylosis without myelopathy Narrative/Plan: Plan of Care 1. Medications: Patient will continue with prescriptions as prescribed by his primary care physician 2. Interventions: No further interventions are indicated at this time. 3. Referrals: I refer the patient physical therapy as he has not been through this treatment plan yet. If the patient does not receive significant benefit from physical therapy I would recommend referring him to a surgeon for evaluation. 4. Testing: None 5. Psychological: Patient denies significant depression or anxiety. Current Visit: Yes Status: Acute Code(s): M47.812 - SPONDYLOSIS W/O MYELOPATHY OR RADICULOPATHY, CERVICAL REGION SNOMED Code(s): 783098697 (2) DDD (degenerative disc disease), cervical Current Visit: Yes Status: Acute Code(s): M50.30 - OTHER CERVICAL DISC DEGENERATION, UNSP CERVICAL REGION SNOMED Code(s): 83287183 PQRS Measure Charge Sheet Measure #130: Documentation of Current Meds in Medical Chart: Patient not eligible for medications to be documented Measure #226: Tobacco Use: Screen & Cessation Intervention: Pt screened for tobacco use AND intervention given Measure #111: Pneumonia Vaccination: Pneumococcal vaccine NOT administered or previously given Measure #47: Advance Care Plan: Advance care planning discussed & documented, pt chose/unable to give Measure #412: Opioid Treatment Agreement: No documentation of signed opioid treatment agreement Measure #408: Opioid Therapy Follow-up Evaluation: Patient had NO f/u eval minimum every 3 months during opioid therapy Measure #317: Preventitive Care & Scrn High Bld Press & F/U: Normal blood pressure, f/u not required Measure #128: Body Mass Index (BMI) Screening & Follow-up: BMI documented within normal parameters Measure #131: Pain Assessment & Follow-up: Pain positive & plan documented Measure #431: Unhealthy Alcohol Use Preventative Care & Scrn: Patient not identified as an unhealthy alcohol user PQRS Narrative: Smoking Status Current every day smoker Do You Want the Pneumonia Vaccine Up to Date Vaccine AT THIS TIME? Blood Pressure 110/77 Pain Intensity [Neck] 6 Hx Alcohol Use (MH) No Home Medications: Ambulatory Orders ALPRAZolam [Xanax] 0.5 mg PO TID 05/14/17 Gabapentin 800 mg PO TID 05/14/17 Ibuprofen 800 mg PO BID 05/14/17 Beclomethasone Dipropionate [Qvar 40 mcg] 1 puff INHALATION RT-BID 06/25/17 FLUoxetine HCL [PROzac] 20 mg PO QAM 07/24/17 QUEtiapine [SEROquel] 100 mg PO HS 07/24/17 amLODIPine [Norvasc] 5 mg PO QAM 07/28/17 Aspirin 81 mg PO DAILY 08/18/17 ARIPiprazole [Abilify] 20 mg PO QAM 10/19/17 DULoxetine HCL [Cymbalta] 30 mg PO QAM 10/19/17 Topiramate [Topamax] 50 mg PO BID 10/19/17 Budesonide/Formoterol Fumarate [Symbicort 160-4.5 Mcg Inhaler] 2 puff INHALATION BID 11/16/17 Controlled Substance Measures - Controlled Substance Measures Is patient prescribed a controlled substance at discharge?: No
[2018-03-31 11:44] VITALS: BP 110/77; PULSE 91; RESP 18; TEMP 97.6
== END | disposition home or self-care (01) ==
LOC: PNWHC3 11:13
PROVIDERS: ATTEND Pain Medicine Pain Medicine
DX: M50.30 Other cervical disc degeneration, unspecified cervical region (principal); M47.812 Spondylosis without myelopathy or radiculopathy, cervical region; F17.200 Nicotine dependence, unspecified, uncomplicated; Z79.1 Long term (current) use of non-steroidal anti-inflammatories (NSAID); Z79.82 Long term (current) use of aspirin; Z79.899 Other long term (current) drug therapy
CPT/HCPCS: 99211

== ENCOUNTER → 2018-04-28 | Outpatient (CLI) | payer OTHER ==
[2018-04-28 14:39] VITALS: BP 113/76; PULSE 76; RESP 16
--- NOTE | 2018-04-29 11:55 | P.PAINPG ---
Subjective Progress Note Date: 04/28/18 This is a follow-up visit for this patient with a history of severe neck pain and headache diagnosed with cervical spondylosis cervicogenic headache and occipital neuralgia, bilateral occipital nerve block which provided him with short-term benefit, later on we did diagnostic medial branch block cervical area C4/C5/C6, and it was successful with her on we did radiofrequency ablation of the medial branch cervical area at the levels mentioned above, patient reported that his neck pain improved significantly but he continued to have severe headache, neck and there is increased with neck movement, he denies any motor or sensory deficits he denies any change in the bowel movement or urination, no fever or night sweats, currently is using Motrin 800 mg 3 times a day and Neurontin 800 mg 3 times a day, he get some benefit, he denies any side effect of the medication Objective - Vital Signs Vital signs: Vital Signs Temp Pulse 76 04/28/18 14:33 Resp 16 04/28/18 14:33 BP 113/76 04/28/18 14:33 Pulse Ox 98 04/28/18 14:33 Intake & Output 04/28/18 04/29/18 04/29/18 18:59 06:59 18:59 Weight 77.111 kg - Exam Physical Examinations : 1-Constitutiona : Cooperative , not in acute distress . 2-HEENT : nech ; supple , no Lymphadenopathy , normal thyroid size . eyes : no ptosis , no icterus , no photophobia . ENT : normal of hearing , normal oropharynx , no Thrush . 3- Respiratory : Chest clear to auscultations Bilaterally , no wheezing , no Rhonchi . 4- Cardiovascular : regular rate and rhythem , S1 , S2 , no S3 , no S4. 5- Gastrointestinal : abdomen soft no tenderness , bowel sounds , no organomegally . 6- Genitourinary : Defferred . 7- neurologic : Cranial nerve II to XII intact , no focal neurological deffecit . 8-psychatric : alert , oriented X 3 , appropriate affect , intact judgment and insight . 9-Lymphatic : no Lymphadenopathy . 10- musculoskeltal : Cervical Spine motor stregnth in the deltoid and biceps, normal right side , normal Left side motor stregnth biceps and the wrist extensors normal right side ,normal left side . motor stregnth in the triceps muscle . normal Right side , normal Left side deep tendon reflexes normal at the biceps , normal at Brachioradialis , normal at triceps. positive cervical facet loading test . Severe tenderness over the occipital nerves bilaterally Lumber spine moter stegnth lower extremities ,thigh and legs 5/5 Right side , 5/5 Left side Assessment and Plan Plan: Assessment and plan= chronic neck pain and headaches secondary to occipital neuralgia, cervicogenic headache, cervical spondylosis neck pain improved after the radiofrequency ablation of the medial branch cervical area C4/C5/C6, Patient will be good candidate to have diagnostic medial branch block C2 / C3 / and third occipital nerve block bilaterally, and if he had more than 50% decrease in his headache he will be good candidate to have radiofrequency ablation of the Branch at C2 / C3/ the third occipital nerve Time with Patient: Less than 30 PQRS Measure Charge Sheet Measure #130: Documentation of Current Meds in Medical Chart: Patient's medications documented in chart Measure #226: Tobacco Use: Screen & Cessation Intervention: Pt screened for tobacco use AND intervention given Measure #111: Pneumonia Vaccination: Pneumococcal vaccine administered or previously received Measure #47: Advance Care Plan: Advance care planning discussed & documented, pt chose/unable to give Measure #412: Opioid Treatment Agreement: No documentation of signed opioid treatment agreement Measure #408: Opioid Therapy Follow-up Evaluation: Patient had NO f/u eval minimum every 3 months during opioid therapy Measure #317: Preventitive Care & Scrn High Bld Press & F/U: Normal blood pressure, f/u not required Measure #128: Body Mass Index (BMI) Screening & Follow-up: BMI documented ABOVE normal parameters - f/u documented Measure #131: Pain Assessment & Follow-up: Pain positive & plan documented, Follow-up scheduled Measure #431: Unhealthy Alcohol Use Preventative Care & Scrn: Patient not identified as an unhealthy alcohol user PQRS Narrative: Smoking Status Current every day smoker Do You Want the Pneumonia Vaccine Up to Date Vaccine AT THIS TIME? Blood Pressure 113/76 Pain Intensity [Bilateral 7 Posterior Neck] Scale Used Numeric (1 - 10) Hx Alcohol Use (MH) No Home Medications: Ambulatory Orders ALPRAZolam [Xanax] 0.5 mg PO TID 05/14/17 Gabapentin 800 mg PO TID 05/14/17 Ibuprofen 800 mg PO BID 05/14/17 Beclomethasone Dipropionate [Qvar 40 mcg] 1 puff INHALATION RT-BID 06/25/17 FLUoxetine HCL [PROzac] 20 mg PO QAM 07/24/17 QUEtiapine [SEROquel] 100 mg PO HS 07/24/17 amLODIPine [Norvasc] 5 mg PO QAM 07/28/17 Aspirin 81 mg PO DAILY 08/18/17 ARIPiprazole [Abilify] 20 mg PO QAM 10/19/17 DULoxetine HCL [Cymbalta] 30 mg PO QAM 10/19/17 Topiramate [Topamax] 50 mg PO BID 10/19/17 Budesonide/Formoterol Fumarate [Symbicort 160-4.5 Mcg Inhaler] 2 puff INHALATION BID 11/16/17 Controlled Substance Measures - Controlled Substance Measures Is patient prescribed a controlled substance at discharge?: No When asked, does pt state using other controlled substances?: No If prescribed controlled substance>3 days was MAPS reviewed?: No If Rx opioid, was Start Talking consent form obtained?: No If opioid is for acute pain is fill amount 7 days or less?: No Was information provided regarding opioid addiction?: No
== END | disposition home or self-care (01) ==
LOC: PNWHC3 14:17
PROVIDERS: ATTEND Specialist
DX: G89.29 Other chronic pain (principal); M54.2 Cervicalgia; M47.812 Spondylosis without myelopathy or radiculopathy, cervical region; M54.81 Occipital neuralgia; F17.200 Nicotine dependence, unspecified, uncomplicated; Z79.1 Long term (current) use of non-steroidal anti-inflammatories (NSAID); Z79.891 Long term (current) use of opiate analgesic
CPT/HCPCS: 99211

== ENCOUNTER 2018-05-17 08:55 | Day surgery (SDC) | payer OTHER ==
[2018-05-11 15:21] VITALS: BMI 27.4
[2018-05-17 09:48] VITALS: TEMP 97.6
[2018-05-17] MEDS ORDERED: LIDOCAINE 1% 20 ML VIAL (10MG/ML) FOR IV START INTRADERMA ONE (10:06)
--- NOTE | 2018-05-17 11:11 | P.PCN ---
Date of Procedure: 05/17/18 Preoperative Diagnosis: Cervicogenic headache Postoperative Diagnosis: Same as above Procedure(s) Performed: Bilateral cervical medial branch block for levels C2, C3 and third occipital nerve under fluoroscopic guidance Anesthesia: other (Local with IV conscious sedation with 2 mg of Versed) Surgeon: Balbina Pratt Pathology: none sent Condition: stable Disposition: PACU Description of Procedure: The patient was seen and identified in the preoperative area. Risks, benefits, complications, and alternatives were discussed with the patient, the patient agreed to proceed with the procedure and signed the consent. IV was started. Vital signs remained stable throughout the procedure. Patient was taken to the OR and time out was completed. The patient was placed in the supine position on the procedure table. . The cervical area was prepped with chloraprep and draped in the usual sterile fashion. Critical pause was taken. Vital signs were closely monitored during the procedure. Conscious sedation was used during the procedure to decrease patients anxiety. The lateral view of fluoroscopy was used to identify the C2 and C3 trapezoid shaped cervical articular pillars at the target points were the center of the articular pillars . I used 25-gauge 3-1/2 inch Quincke spinal needle to go through the skin after localizing it with lidocaine 1% and to contact the bone at the above-mentioned target point then the AP view of fluoroscopy was used to verify needle position at the waist of the C2 and C3 vertebral bodies laterally. For the 3rd occipital nerve the target point was at the center of the C2-C3 joint and bilaterally . after contacting bone at the target points mentioned above I injected 0.5 MLS of a solution made up off 3 ml of preservative-free ropivacaine 0.5% mixed with Dexamethasone 10 mg and half ml of the mixture was injected at each level after negative aspiration for blood and CSF. [place] were then removed intact the same procedure was repeated on the left side. COMPLICATIONS: No acute complications. COMMENTS: DISPOSITION / PLANS: The patient was placed in a supine position and transferred to the recovery area in a stable condition for observation and was discharged from the recovery room after meeting discharge criteria. Home discharge instructions given to the patient by the staff. The patient was reexamined prior to discharge. The patient will be scheduled for a repeat of this injection in 2-4 weeks.
[2018-05-17] MEDS ORDERED: LACTATED RINGERS 1,000 ML IV ONE (11:17)
[2018-05-17 11:20] VITALS: BP 127/72; PULSE 62; RESP 18
--- NOTE | 2018-05-17 11:23 | FL ---
EXAMINATION TYPE: FL guided pain mgmt statistic DATE OF EXAM: 05/17/2018 HISTORY: Pain BILAT. CERVICAL FACET BLOCK. [address] PITTS. 4 IMAGES SCANNED.
== END 2018-05-17 12:20 | disposition home or self-care (01) ==
LOC: ORPAIN 08:55
PROVIDERS: ATTEND Anesthesiology
DX: G89.29 Other chronic pain (principal); R51 Headache; M47.812 Spondylosis without myelopathy or radiculopathy, cervical region; M54.81 Occipital neuralgia; F17.200 Nicotine dependence, unspecified, uncomplicated; Z79.1 Long term (current) use of non-steroidal anti-inflammatories (NSAID); Z79.899 Other long term (current) drug therapy; Z79.82 Long term (current) use of aspirin; Z79.51 Long term (current) use of inhaled steroids; Z88.0 Allergy status to penicillin
CPT/HCPCS: 64490; 64491; J2250; J1100; 99152; 99153

== ENCOUNTER → 2018-06-01 | Day surgery (SDC) | payer OTHER ==
[2018-05-27 09:12] VITALS: BMI 26.6
[~2018-06-01] MED LIST changes: +IV FLUID CONTINUATION 1,000 ML IV ONE
[2018-06-01 08:10] VITALS: TEMP 98.2
--- NOTE | 2018-06-01 09:33 | P.PCN ---
Date of Procedure: 06/01/18 Procedure(s) Performed: PREOPERATIVE DIAGNOSIS:1- Cervical Spondylosis with Facet Arthropathy.without myelopathy. 2-cervicogenic headache. 3-occipital neuralgia POSTOPERATIVE DIAGNOSIS: Same as preop diagnosis. PROCEDURES: Diagnostic bilateral C2-3, C3-4 , medial branch blocks, with fluoroscopic guidance. Bilateral third occipital nerve block under fluoroscopy guidance ANESTHESIA: Local with 1% lidocaine; moderate sedation with Versed. 2 mg , and fentanyl 100 micrograms EBL: Minimal PROCEDURE INDICATION: The patient with neck pain secondary to cervical arthropathy unresponsive to more conservative treatments. PROCEDURE DESCRIPTION / TECHNIQUE: The patient was seen and identified in the preoperative area. Risks, benefits, complications, and alternatives were discussed with the patient, the patient agreed to proceed with the procedure and signed the consent. IV was started. Vital signs remained stable throughout the procedure. Patient was taken to the OR and time out was completed. The patient was placed in the prone position on the procedure table. A pillow was placed under the patients chest to increase the cervical interlaminar space. The cervical area was prepped and draped in the usual sterile fashion. Critical pause was taken. Vital signs were closely monitored during the procedure. Conscious sedation was used during the procedure to decrease patients anxiety. Using cross-table lateral fluoroscopy, the centroid of the trapezoid of right C2 ,C3, was identified, marked, and localized with 1% lidocaine 1 ml at each level for skin and Sub Q infiltrations . Subsequently, a 22 G 2 spinal needle was advanced guided by fluoroscopy to the centroid of the trapezoid of Right C2 , C3, [place] tip position was confirmed at the centroid of the trapezoids of Right C2 C3 , with anteroposterior fluoroscopy. Subsequently, 1 ml of preservative-free Ropivacaine 0.5% mixed with Dexamethasone 10 mg and half ml of the mixture was injected after negative aspiration for blood and CSF. Then after that to do the third occipital nerve block 22-gauge Quincke Needle placed at the center of the facet joint between the C2 and C3 vertebra , with placement confirmed with AP and lateral view, then after negative aspiration ropivacaine 0.5% Half mL injected after negative aspiration, patient tolerated the procedure well without any complications, and then the exact same procedure was repeated for the left side and in the left side C2- 3 , C3 4 , and 3rd occipital nerve block under fluoroscopy guidance, COMPLICATIONS: No acute complications. DISPOSITION / PLANS: The patient was placed in a supine position and transferred to the recovery area in a stable condition for observation and was discharged from the recovery room after meeting discharge criteria. Home discharge instructions given to the patient by the staff. The patient was reexamined prior to discharge. The patient will schedule a follow up in the clinic in 2-4 weeks.
[2018-06-01 09:36] VITALS: RESP 18
[2018-06-01 09:50] VITALS: BP 130/80; PULSE 77
--- NOTE | 2018-06-01 11:56 | FL ---
EXAMINATION TYPE: FL guided pain mgmt statistic DATE OF EXAM: 06/01/2018 HISTORY: Flouroscopy time 8 seconds of fluoroscopy provided. IMPRESSION: 1. Fluoroscopy time.
== END | disposition home or self-care (01) ==
LOC: ORPAIN 08:03
PROVIDERS: ATTEND Specialist
DX: M47.812 Spondylosis without myelopathy or radiculopathy, cervical region (principal); M54.81 Occipital neuralgia
CPT/HCPCS: 64405; 64490; 64491; J2250; J3301; J3010; 99152

== ENCOUNTER → 2018-06-21 | Outpatient (CLI) | payer OTHER ==
[2018-06-21 15:04] VITALS: BP 115/81; PULSE 77; RESP 16
--- NOTE | 2018-06-22 10:24 | P.PAINPG ---
Subjective Progress Note Date: 06/21/18 This is a follow-up visit for this 52 years old male with a chronic history of severe neck pain and headache, is diagnosed with cervical spondylosis, cervicogenic headache, and occipital neuralgia, recently we've done diagnostic medial branch block cervical C2-C3/C3 4 and third occipital nerve, 2, and he reported that the procedure helped his headache and neck pain significantly, he denies any fever or night sweats he denies any motor or sensory deficit and he denies any change in the bowel movements or urination, patient reported he had more than 70% improvement of his neck pain and headache, after each procedure we did, he continued to use Neurontin 800 mg 3 times a day and Motrin 800 mg 3 times a day when necessary, he denies any side effect of the medication he denies any excessive drowsiness or sleepiness Objective - Vital Signs Vital signs: Vital Signs Temp Pulse 77 06/21/18 14:57 Resp 16 06/21/18 14:57 BP 115/81 06/21/18 14:57 Pulse Ox 97 06/21/18 14:57 Intake & Output 06/21/18 06/22/18 06/22/18 18:59 06:59 18:59 Weight 74.843 kg - Exam Physical Examinations : 1-Constitutiona : Cooperative , not in acute distress . 2-HEENT : nech ; supple , no Lymphadenopathy , normal thyroid size . eyes : no ptosis , no icterus, no photophobia . ENT : normal of hearing , normal oropharynx , no Thrush . 3- Respiratory : Chest clear to auscultations Bilaterally , no wheezing , no Rhonchi . 4- Cardiovascular : regular rate and rhythem , S1 , S2 , no S3 , no S4. 5- Gastrointestinal : abdomen soft no tenderness , bowel sounds , no organomegally . 6- Genitourinary : Defferred . 7- neurologic : Cranial nerve II to XII intact , no focal neurological deffecit . 8-psychatric : alert , oriented X 3 , appropriate affect , intact judgment and insight . 9-Lymphatic : no Lymphadenopathy . 10- musculoskeltal : Cervical Spine motor stregnth in the deltoid and biceps, normal right side , normal Left side motor stregnth biceps and the wrist extensors normal right side ,normal left side . motor stregnth in the triceps muscle . normal Right side , normal Left side deep tendon reflexes normal at the biceps , normal at Brachioradialis , normal at triceps. positive cervical facet loading test . Tenderness over the occipital nerve bilaterally Lumber spine moter stegnth lower extremities , thigh and legs 5/5 Right side , 5/5 Left side Assessment and Plan Plan: Assessment and plan= chronic neck pain and headaches secondary to cervical spondylosis with cervical facet arthropathy, cervicogenic headache, occipital neuralgia Patient had more than 70% improvement of his neck pain and headache after we did diagnostic medial branch block cervical area C2 3/C3-4/third occipital nerve Patient will be scheduled to have radiofrequency ablation of the medial branch cervical area C2 3/C3 4/third occipital nerve, we'll do the right side first ,then later on we'll do the left side Time with Patient: Less than 30 PQRS Measure Charge Sheet Measure #130: Documentation of Current Meds in Medical Chart: Patient's medications documented in chart Measure #226: Tobacco Use: Screen & Cessation Intervention: Pt not a tobacco user Measure #111: Pneumonia Vaccination: Pneumococcal vaccine administered or previously received Measure #47: Advance Care Plan: Advance care planning discussed & documented, pt chose/unable to give Measure #412: Opioid Treatment Agreement: No documentation of signed opioid treatment agreement Measure #408: Opioid Therapy Follow-up Evaluation: Patient had NO f/u eval minimum every 3 months during opioid therapy Measure #317: Preventitive Care & Scrn High Bld Press & F/U: Normal blood pressure, f/u not required Measure #128: Body Mass Index (BMI) Screening & Follow-up: BMI documented ABOVE normal parameters - f/u documented Measure #131: Pain Assessment & Follow-up: Pain positive & plan documented, Follow-up scheduled Measure #431: Unhealthy Alcohol Use Preventative Care & Scrn: Patient not identified as an unhealthy alcohol user PQRS Narrative: Smoking Status Current every day smoker Do You Want the Pneumonia Vaccine Up to Date Vaccine AT THIS TIME? Blood Pressure 115/81 Pain Intensity [Posterior Neck 3 ] Scale Used Numeric (1 - 10) Hx Alcohol Use (MH) No Home Medications: Ambulatory Orders ALPRAZolam [Xanax] 0.5 mg PO TID 05/14/17 Gabapentin 800 mg PO TID 05/14/17 Ibuprofen 800 mg PO BID 05/14/17 Beclomethasone Dipropionate [Qvar 40 mcg] 1 puff INHALATION RT-BID 06/25/17 FLUoxetine HCL [PROzac] 20 mg PO QAM 07/24/17 QUEtiapine [SEROquel] 100 mg PO HS 07/24/17 amLODIPine [Norvasc] 5 mg PO QAM 07/28/17 Aspirin 81 mg PO DAILY 08/18/17 ARIPiprazole [Abilify] 20 mg PO QAM 10/19/17 DULoxetine HCL [Cymbalta] 30 mg PO QAM 10/19/17 Topiramate [Topamax] 50 mg PO BID 10/19/17 Budesonide/Formoterol Fumarate [Symbicort 160-4.5 Mcg Inhaler] 2 puff INHALATION BID 11/16/17 Controlled Substance Measures - Controlled Substance Measures Is patient prescribed a controlled substance at discharge?: No When asked, does pt state using other controlled substances?: No If prescribed controlled substance>3 days was MAPS reviewed?: No If Rx opioid, was Start Talking consent form obtained?: No If opioid is for acute pain is fill amount 7 days or less?: No Was information provided regarding opioid addiction?: No
== END | disposition home or self-care (01) ==
LOC: PNWHC3 14:40
PROVIDERS: ATTEND Specialist
DX: G89.29 Other chronic pain (principal); M47.812 Spondylosis without myelopathy or radiculopathy, cervical region; M46.92 Unspecified inflammatory spondylopathy, cervical region; M54.81 Occipital neuralgia; Z79.82 Long term (current) use of aspirin; Z79.51 Long term (current) use of inhaled steroids; Z79.891 Long term (current) use of opiate analgesic; Z79.899 Other long term (current) drug therapy
CPT/HCPCS: 99211

== ENCOUNTER → 2018-07-19 | Day surgery (SDC) | payer OTHER ==
[~2018-07-19] MED LIST changes: -IV FLUID CONTINUATION 1,000 ML IV ONE; -LACTATED RINGERS 1,000 ML IV SCH; +SODIUM CHLORIDE 0.9% 500 ML 500 ML IV ONE
[2018-07-19 08:52] VITALS: RESP 18; TEMP 97.7
--- NOTE | 2018-07-19 09:52 | P.PCN ---
Date of Procedure: 07/19/18 Preoperative Diagnosis: cervical spondylosis Postoperative Diagnosis: same Procedure(s) Performed: Right - Cervical RFA C2/3, 3/4 Anesthesia: MAC (conscious sedation) Description of Procedure: PREOPERATIVE DIAGNOSIS: Cervical spondylosis M47.812 POSTOPERATIVE DIAGNOSIS: Cervical spondylosis M47.812 PROCEDURES: Radiofrequency thermocoagulation, Pulsed RF of C2 (TON) with RFA of c3 and c4 ANESTHESIA: Local with 1% lidocaine; IV sedation with fentanyl and Versed. EBL: Minimal PROCEDURE INDICATION: The patient with neck pain secondary to cervical arthropathy who had more than 50% relief of her pain with previous diagnostic cervical medial branch block. PROCEDURE DESCRIPTION / TECHNIQUE: The patient was seen and identified in the preoperative area. Risks, benefits, complications, and alternatives were discussed with the patient, the patient agreed to proceed with the procedure and signed the consent. IV was started. Vital signs remained stable throughout the procedure. Patient was taken to the OR and time out was completed. The patient was placed in the prone position on the procedure table. A pillow was placed under the patients chest to increase the cervical interlaminar space. The cervical area was prepped and draped in the usual sterile fashion. Critical pause was taken. Vital signs were closely monitored during the procedure. Conscious sedation was used during the procedure to decrease patients anxiety. Using cross-table lateral fluoroscopy, the center of the trapezoid of C2, C3, c4were identified, marked, and localized with 1% lidocaine. Subsequently, a 20 [id number] radiofrequency cannula with a 10-mm active tip was advanced guided by fluoroscopy to the center of the trapezoid of C3, C4 . Needle tip position was confirmed at the center of the trapezoids of C3, C4, and the lower border of the C2 Trapazoid with anteroposterior and lateral fluoroscopy. Each site then underwent sensory testing at 50 Hz and 0 to 1 volt and motor testing at 2 Hz and 0 to 3 volt with local stimulation, but no radicular symptoms down the arm. Thereafter C3, C4, sites underwent radiofrequency thermocoagulation at 80 degrees celsius for 90 seconds after injecting 0.5ml of 0.25% bupivacaine prior to lesioning. TON was pulsed at 60 degrees for 120 seconds. Cannulas were retracted. Skin was cleansed and bandages were applied. COMPLICATIONS: No acute complications. COMMENTS: DISPOSITION / PLANS: The patient was placed in a supine position and transferred to the recovery area in a stable condition for observation and was discharged from the recovery room after meeting discharge criteria. Home discharge instructions given to the patient by the staff. The patient was reexamined prior to discharge. We will repeat the left side in 2 weeks time.
[2018-07-19 10:37] VITALS: BP 111/72; PULSE 87
--- NOTE | 2018-07-19 13:28 | FL ---
EXAMINATION TYPE: FL guided pain mgmt statistic DATE OF EXAM: 07/19/2018 FLUOROSCOPY Fluoroscopy time of 7 seconds was used during radiofrequency intervention of the cervical facets. 1 image/s document/s the procedure.
== END | disposition home or self-care (01) ==
LOC: ORPAIN 08:38
PROVIDERS: ATTEND Hospitalist
DX: M47.812 Spondylosis without myelopathy or radiculopathy, cervical region (principal); Z88.0 Allergy status to penicillin
CPT/HCPCS: 64633; 64634; J2250; J2001; J3010; 99152

== ENCOUNTER 2018-08-18 09:39 | Day surgery (SDC) | payer OTHER ==
[2018-08-04 11:01] VITALS: BMI 26.1
[2018-08-18 09:59] VITALS: TEMP 98
[2018-08-18] MEDS ORDERED: LACTATED RINGERS 1,000 ML IV ONE (09:59)
[2018-08-18] MEDS ORDERED: LIDOCAINE 1% 20 ML VIAL (10MG/ML) FOR IV START INTRADERMA ONE (09:59)
--- NOTE | 2018-08-18 10:33 | P.PCN ---
Date of Procedure: 08/18/18 Preoperative Diagnosis: Cervical spondylosis without myelopathy Postoperative Diagnosis: Same Anesthesia: other (Conscious sedation) Surgeon: Vargas Waters Disposition: PACU Description of Procedure: PREOPERATIVE DIAGNOSIS: Cervical spondylosis M47.812 POSTOPERATIVE DIAGNOSIS: Cervical spondylosis M47.812 PROCEDURES: LEFT Sided Radiofrequency thermocoagulation, Pulsed RF of C2 (TON) with RFA of c3 and c4 ANESTHESIA: Local with 1% lidocaine; IV sedation with fentanyl and Versed. EBL: Minimal PROCEDURE INDICATION: The patient with neck pain secondary to cervical arthropathy who had more than 50% relief of her pain with previous diagnostic cervical medial branch block. PROCEDURE DESCRIPTION / TECHNIQUE: The patient was seen and identified in the preoperative area. Risks, benefits, complications, and alternatives were discussed with the patient, the patient agreed to proceed with the procedure and signed the consent. IV was started. Vital signs remained stable throughout the procedure. Patient was taken to the OR and time out was completed. The patient was placed in the prone position on the procedure table. A pillow was placed under the patients chest to increase the cervical interlaminar space. The cervical area was prepped and draped in the usual sterile fashion. Critical pause was taken. Vital signs were closely monitored during the procedure. Conscious sedation was used during the procedure to decrease patients anxiety. Using cross-table lateral fluoroscopy, the center of the trapezoid of C2, C3, c4were identified, marked, and localized with 1% lidocaine. Subsequently, a 20 [id number] radiofrequency cannula with a 10-mm active tip was advanced guided by fluoroscopy to the center of the trapezoid of C3, C4 . Needle tip position was confirmed at the center of the trapezoids of C3, C4, and the lower border of the C2 Trapazoid with anteroposterior and lateral fluoroscopy. Each site then underwent sensory testing at 50 Hz and 0 to 1 volt and motor testing at 2 Hz and 0 to 3 volt with local stimulation, but no radicular symptoms down the arm. Thereafter C3, C4, sites underwent radiofrequency thermocoagulation at 80 degrees celsius for 90 seconds after injecting 0.5ml of 0.25% bupivacaine prior to lesioning. TON was pulsed at 60 degrees for 120 seconds. Cannulas were retracted. Skin was cleansed and bandages were applied. COMPLICATIONS: No acute complications. COMMENTS: DISPOSITION / PLANS: The patient was placed in a supine position and transferred to the recovery area in a stable condition for observation and was discharged from the recovery room after meeting discharge criteria. Home discharge instructions given to the patient by the staff. The patient was reexamined prior to discharge. Patient will follow-up in the pain clinic
[2018-08-18] MEDS ORDERED: IV FLUID CONTINUATION 1,000 ML IV ONE ×2 (10:37)
[2018-08-18 10:41] VITALS: RESP 18
[2018-08-18 10:52] VITALS: PULSE 66
[2018-08-18 11:12] VITALS: BP 110/58
--- NOTE | 2018-08-18 13:22 | FL ---
EXAMINATION TYPE: FL guided pain mgmt statistic DATE OF EXAM: 08/18/2018 CLINICAL HISTORY: Neck pain. TECHNIQUE: Fluoroscopy. COMPARISON: None. FINDINGS: Fluoroscopic guidance was provided during pain relief procedure performed by Dr. Waters . A total of 12 seconds of fluoroscopic time was utilized during the procedure and two spot images ar e acquired. Images acquired shows needle localization at several levels in the cervical spine. IMPRESSION: As Above.
== END 2018-08-18 11:13 | disposition home or self-care (01) ==
LOC: ORPAIN 09:39
PROVIDERS: ATTEND Hospitalist
DX: M47.812 Spondylosis without myelopathy or radiculopathy, cervical region (principal); Z88.0 Allergy status to penicillin
CPT/HCPCS: 64999; 64633; J2250; J2001; J3010; 64634; 64636; 99152; 99153

== ENCOUNTER 2018-10-13 18:47 | Inpatient (IN) | payer OTHER ==
[2018-10-13] MEDS ORDERED: SODIUM CHLORIDE 0.9% 1,000 ML IV STA ×2 (19:05→20:20)
[2018-10-13 19:41] LABS: Glucose,Whole Blood 133 mg/dL (75-99)
[2018-10-13 19:51] LABS: Basophils % (A) 0 %; Eosinophils # (A) 0.4 k/uL (0-0.7); Eosinophils % (A) 4 %; HCT 42.7 % (39.0-53.0); HGB 13.6 gm/dL (13.0-17.5); Lymphocytes # (A) 2.1 k/uL (1.0-4.8); Lymphocytes % (A) 21 %; MCH 32.4 pg (25.0-35.0); MCHC 31.9 g/dL (31.0-37.0); MCV 101.7 fL (80.0-100.0); Macrocytosis Slight; Mean Platelet Volume 6.6; Monocytes # (A) 0.4 k/uL (0-1.0); Monocytes % (A) 4 %; Neutrophils # (A) 7.3 k/uL (1.3-7.7); Neutrophils % (A) 70 %; Platelet Count 230 k/uL (150-450); RDW 13.1 % (11.5-15.5); WBC 10.4 k/uL (3.8-10.6)
--- NOTE | 2018-10-13 19:57 | ED ---
Syncope HPI - General Chief Complaint: Syncope Stated Complaint: Syncope Time Seen by Provider: 10/13/18 18:58 Source: patient, EMS Mode of arrival: EMS Limitations: no limitations - History of Present Illness Initial Comments: Patient presents with syncopal episode. He had multiple episodes of syncope. To 80s episodes were witnessed by EMS. Patient denies any chest pain or shortness of breath. He has no belly or back pain. He has no nausea or vomiting. He has no headache. He has no focal weakness. - Related Data Home Medications Medication Instructions Recorded Confirmed Gabapentin 800 mg PO TID 05/14/17 10/13/18 Ibuprofen 800 mg PO BID 05/14/17 10/13/18 ALPRAZolam [Xanax] 0.5 mg PO BID PRN 09/23/18 10/13/18 ARIPiprazole [Abilify] 2 mg PO DAILY 09/23/18 10/13/18 Albuterol Inhaler [Ventolin Hfa 2 puff INHALATION RT-QID PRN 09/23/18 10/13/18 Inhaler] Aspirin EC [Ecotrin Low Dose] 81 mg PO DAILY 09/23/18 10/13/18 DULoxetine HCL [Cymbalta] 60 mg PO DAILY 09/23/18 10/13/18 FLUoxetine HCL [PROzac] 40 mg PO DAILY 09/23/18 10/13/18 Lisinopril [Zestril] 20 mg PO DAILY 09/23/18 10/13/18 QUEtiapine [SEROquel] 100 mg PO HS 09/23/18 10/13/18 Topiramate [Topamax] 100 mg PO BID 09/23/18 10/13/18 Allergies Allergy/AdvReac Type Severity Reaction Status Date / Time Penicillins Allergy Rash/Hives Verified 10/13/18 19:04 Review of Systems ROS Statement: Those systems with pertinent positive or pertinent negative responses have been documented in the HPI. ROS Other: All systems not noted in ROS Statement are negative. Past Medical History Past Medical History: Asthma, COPD, Hypertension, Memory Impairment, Osteoarthritis (OA) Additional Past Medical History / Comment(s): BEING EVALUATED FOR MEMORY LOSS HAS AN APPOINTMENT @ [facility]-NO RESULTS YET, Hand pain, has the starting of Emphysema. C-diff approx 03/31/18 with treatment. History of Any Multi-Drug Resistant Organisms: None Reported Past Surgical History: Ear Surgery, Orthopedic Surgery Additional Past Surgical History / Comment(s): Vasectomy, right shoulder surgery , carpal tunnel, LEFT KNEE SURGERY. PAIN PROCEDURES Past Anesthesia/Blood Transfusion Reactions: No Reported Reaction Past Psychological History: Depression Smoking Status: Current every day smoker Past Alcohol Use History: None Reported Past Drug Use History: Marijuana - Past Family History Father Family Medical History: Cancer General Exam Limitations: no limitations General appearance: alert, in no apparent distress Head exam: Present: atraumatic, normocephalic, normal inspection Eye exam: Present: normal appearance, PERRL, EOMI. Absent: scleral icterus, conjunctival injection, periorbital swelling ENT exam: Present: normal exam, mucous membranes moist Neck exam: Present: normal inspection. Absent: tenderness, meningismus, lymphadenopathy Respiratory exam: Present: normal lung sounds bilaterally. Absent: respiratory distress, wheezes, rales, rhonchi, stridor Cardiovascular Exam: Present: regular rate, normal rhythm, normal heart sounds. Absent: systolic murmur, diastolic murmur, rubs, gallop, clicks GI/Abdominal exam: Present: soft, normal bowel sounds. Absent: distended, tenderness, guarding, rebound, rigid Extremities exam: Present: normal inspection, full ROM, normal capillary refill. Absent: tenderness, pedal edema, joint swelling, calf tenderness Back exam: Present: normal inspection Neurological exam: Present: alert, oriented X3, CN II-XII intact Psychiatric exam: Present: normal affect, normal mood Skin exam: Present: warm, dry, intact, normal color. Absent: rash Course Vital Signs 10/13/18 18:49 Temperature 97.6 F Pulse Rate 79 Respiratory 18 Rate Blood Pressure 66/47 O2 Sat by Pulse 96 Oximetry EKG Findings - EKG Comments: EKG Findings:: Twelve-lead EKG shows ventricular rate 78 bpm, normal AR interval and Loy complex, no ST elevation or depression, interpreted by me as normal sinus rhythm. Medical Decision Making - Medical Decision Making Patient presented with syncope. He responded well to fluids. He will be admitted to the hospital. - Lab Data Result diagrams: 10/13/18 19:20 10/13/18 19:20 Lab Results 10/13/18 10/13/18 10/13/18 Range/Units 19:20 19:20 19:20 WBC 10.4 (3.8-10.6) k/uL RBC 4.20 L (4.30-5.90) m/uL Hgb 13.6 (13.0-17.5) gm/dL Hct 42.7 (39.0-53.0) % MCV 101.7 H (80.0-100.0) fL MCH 32.4 (25.0-35.0) pg MCHC 31.9 (31.0-37.0) g/dL RDW 13.1 (11.5-15.5) % Plt Count 230 (150-450) k/uL Neutrophils % 70 % Lymphocytes % 21 % Monocytes % 4 % Eosinophils % 4 % Basophils % 0 % Neutrophils # 7.3 (1.3-7.7) k/uL Lymphocytes # 2.1 (1.0-4.8) k/uL Monocytes # 0.4 (0-1.0) k/uL Eosinophils # 0.4 (0-0.7) k/uL Basophils # 0.0 (0-0.2) k/uL Macrocytosis Slight Sodium 142 (137-145) mmol/L Potassium 4.7 (3.5-5.1) mmol/L Chloride 115 H (98-107) mmol/L Carbon Dioxide 18 L (22-30) mmol/L Anion Gap 9 mmol/L BUN 17 (9-20) mg/dL Creatinine 1.73 H (0.66-1.25) mg/dL Est GFR (CKD-EPI)AfAm 52 (>60 ml/min/1.73 sqM) Est GFR (CKD-EPI)NonAf 45 (>60 ml/min/1.73 sqM) Glucose 120 H (74-99) mg/dL POC Glucose (mg/dL) (75-99) mg/dL POC Glu Rooming House Operator ID Calcium 8.9 (8.4-10.2) mg/dL Magnesium 1.9 (1.6-2.3) mg/dL Total Bilirubin 0.3 (0.2-1.3) mg/dL AST 18 (17-59) U/L ALT 26 (21-72) U/L Alkaline Phosphatase 102 (38-126) U/L Troponin I <0.012 (0.000-0.034) ng/mL Total Protein 6.4 (6.3-8.2) g/dL Albumin 3.6 (3.5-5.0) g/dL Serum Alcohol <10 mg/dL 10/13/18 Range/Units 19:23 WBC (3.8-10.6) k/uL RBC (4.30-5.90) m/uL Hgb (13.0-17.5) gm/dL Hct (39.0-53.0) % MCV (80.0-100.0) fL MCH (25.0-35.0) pg MCHC (31.0-37.0) g/dL RDW (11.5-15.5) % Plt Count (150-450) k/uL Neutrophils % % Lymphocytes % % Monocytes % % Eosinophils % % Basophils % % Neutrophils # (1.3-7.7) k/uL Lymphocytes # (1.0-4.8) k/uL Monocytes # (0-1.0) k/uL Eosinophils # (0-0.7) k/uL Basophils # (0-0.2) k/uL Macrocytosis Sodium (137-145) mmol/L Potassium (3.5-5.1) mmol/L Chloride (98-107) mmol/L Carbon Dioxide (22-30) mmol/L Anion Gap mmol/L BUN (9-20) mg/dL Creatinine (0.66-1.25) mg/dL Est GFR (CKD-EPI)AfAm (>60 ml/min/1.73 sqM) Est GFR (CKD-EPI)NonAf (>60 ml/min/1.73 sqM) Glucose (74-99) mg/dL POC Glucose (mg/dL) 133 H (75-99) mg/dL POC Glu Rooming House Operator ID Joshua, Britney Calcium (8.4-10.2) mg/dL Magnesium (1.6-2.3) mg/dL Total Bilirubin (0.2-1.3) mg/dL AST (17-59) U/L ALT (21-72) U/L Alkaline Phosphatase (38-126) U/L Troponin I (0.000-0.034) ng/mL Total Protein (6.3-8.2) g/dL Albumin (3.5-5.0) g/dL Serum Alcohol mg/dL Disposition Clinical Impression: Syncope Disposition: ADMITTED IP TO THIS HOSP Condition: Serious Is patient prescribed a controlled substance at d/c from ED?: No Referrals: Mona Zhou MD [Primary Care Provider] - 1-2 days
[2018-10-13 20:06] LABS: ALT 26 U/L (21-72); AST 18 U/L (17-59); Albumin 3.6 g/dL (3.5-5.0); Alcohol <10 mg/dL; Alkaline Phosphatase 102 U/L (38-126); Anion Gap 9 mmol/L; Blood Urea Nitrogen 17 mg/dL (9-20); Calcium 8.9 mg/dL (8.4-10.2); Carbon Dioxide 18 mmol/L (22-30); Chloride 115 mmol/L (98-107); Glucose 120 mg/dL (74-99); Magnesium 1.9 mg/dL (1.6-2.3); Potassium 4.7 mmol/L (3.5-5.1); Sodium 142 mmol/L (137-145); Total Bilirubin 0.3 mg/dL (0.2-1.3); Total Protein 6.4 g/dL (6.3-8.2)
--- NOTE | 2018-10-13 20:12 | CT ---
EXAMINATION TYPE: CT brain wo con DATE OF EXAM: 10/13/2018 COMPARISON: 07/08/2016 HISTORY: Hypotension and weakness CT DLP: 1099.4 mGycm Automated exposure control for dose reduction was used. FINDINGS: Ventricles have normal size. There is no mass effect nor midline shift. There is no sign of intracran ial hemorrhage. There is large cisterna magna which is normal variation. The calvarium is intact. The re are small mucous retention cyst anterior right maxillary sinus. IMPRESSION: NEGATIVE CT SCAN OF THE BRAIN. NO CHANGE.
--- NOTE | 2018-10-13 20:13 | XR ---
EXAMINATION TYPE: XR chest 2V DATE OF EXAM: 10/13/2018 COMPARISON: 09/23/2018 HISTORY: Syncope TECHNIQUE: Frontal and lateral views of the chest are obtained. FINDINGS: Heart and mediastinum are normal. Lungs are clear. Diaphragm is normal. Bony thorax is int act. Pulmonary vascularity is normal. There are chest leads. IMPRESSION: Normal chest. No change.
[2018-10-13] MEDS ORDERED: NALOXONE 0.4 MG/ML 1 ML VIAL IV PRN (20:23)
[2018-10-13 21:40] LABS: INR 0.9 (<1.2)
[2018-10-13 21:41] LABS: Partial Thromboplastin Time 24.1 sec (22.0-30.0); Prothrombin Time 10.2 sec (9.0-12.0)
--- NOTE | 2018-10-13 22:13 | US ---
EXAM: US Duplex Bilateral Extracranial Arteries CLINICAL HISTORY: ITS.REASON US Reason: Pain TECHNIQUE: Real-time duplex ultrasound scan of the extracranial arteries integrating B-mode two-dimensional vascular structure, Doppler spectral analysis and color flow Doppler imaging. COMPARISON: None FINDINGS: Right common carotid artery: Unremarkable. No occlusion or significant stenosis on color flow and spectral Doppler imaging. Right internal carotid artery: Unremarkable. No occlusion or significant stenosis on color flow and spectral Doppler imaging. Peak systolic velocity in the right ICA measures 90.0 cm/s. Right external carotid artery: Unremarkable. No occlusion or significant stenosis on color flow and spectral Doppler imaging. Right vertebral artery: Unremarkable. Antegrade flow. Right ICA/CCA ratio: Unremarkable. Within normal limits. Left common carotid artery: Unremarkable. No occlusion or significant stenosis on color flow and spectral Doppler imaging. Left internal carotid artery: Unremarkable. No occlusion or significant stenosis on color flow and spectral Doppler imaging. Peak systolic velocity in the left ICA measures 120 cm/s. Left external carotid artery: Unremarkable. No occlusion or significant stenosis on color flow and spectral Doppler imaging. Left vertebral artery: Unremarkable. Antegrade flow. Left ICA/CCA ratio: Unremarkable. Within normal limits. Lymph nodes: Unremarkable. No lymphadenopathy. CAROTID STENOSIS REFERENCE USING SRU CRITERIA: Mild - <50% stenosis. ICA PSV is less than 125 cm/second and plaque or intimal thickening is visible. Moderate - 50-69% stenosis. ICA PSV is 125 to 230 cm/second and plaque is visible. Severe - 70-94% stenosis. ICA PSV is more than 230 cm/second and visible plaque with lumen narrowing is seen. Near occlusion - 95-99% stenosis. ICA PSV is variable and significant plaque with luminal narrowing is seen. Occluded - 100% stenosis. No flow identified. IMPRESSION: 1. No hemodynamically significant stenosis in either ICA. 2. Normal antegrade flow in both vertebral arteries.
[2018-10-14 00:08] LABS: Appearance,Urine Cloudy (Clear); Bilirubin,Urine Negative (Negative); Blood,Urine Negative (Negative); Color,Urine Yellow; Glucose,Urine (UA) Negative (Negative); Granular Casts,Urine 142 /lpf (0); Hyaline Casts,Urine 15 /lpf (0-2); Ketones,Urine Negative (Negative); Leukocyte Esterase,Urine Negative (Negative); Mucus,Urine Few /hpf; Nitrite,Urine Negative (Negative); PH, Urine 5.5 (5.0-8.0); Protein,Urine 1+ (Negative); RBC,Urine <1 /hpf (0-5); Specific Gravity,Urine 1.009 (1.001-1.035); Squamous Epithelial Cell,Urine <1 /hpf (0-4); Urobilinogen,Urine <2.0 mg/dL (<2.0); WBC,Urine 3 /hpf (0-5)
[2018-10-14] MEDS ORDERED: ALBUTEROL NEBULIZED 2.5 MG/3 ML INHALATION PRN (07:58)
[2018-10-14] MEDS ORDERED: ALPRAZolam 0.5 MG TAB PO PRN (07:58)
[2018-10-14] MEDS ORDERED: IBUPROFEN 800 MG TAB PO SCH (09:00)
[2018-10-14] MEDS ORDERED: LISINOPRIL 20 MG TAB PO SCH (09:00)
--- NOTE | 2018-10-14 09:02 | P.CRDCN ---
History of Present Illness Consult date: 10/14/18 Requesting physician: Brenda Lerma Consult reason: sycope Chief complaint: Syncope History of present illness: This is a 52-year-old gentleman with history of hypertension, COPD, asthma, memory impairment, nicotine dependence, marijuana use, who presents to the hospital following a syncopal episode 3. According to the patient, he passed out at home twice, EMS was called, walking to the EMS with their assistance, he again passed out. According to the patient, he gets no morning prior to passing out, he denies any dizziness, no chest discomfort or palpitations. Patient is alert and oriented when he wakes up, he did not lose bowel or bladder function. According to the patient, he does state that he was in the emergency room a couple of weeks symptoms of difficulty in breathing and was home. Chest x-ray normal. CAT scan of the brain negative. Carotid Doppler study did not reveal any evidence of hemodynamically significant stenosis. EKG on presentation here showed a normal sinus rhythm with no acute changes. His blood pressure on arrival here 66/40, heart rate 78, 96% on room air. I pressure this morning 120/70 with a heart rate in the 70s, 98% on room air. White blood cell count 10.4, hemoglobin 13.6, platelet count 2:30. Sodium 142, potassium 4.7, BUN 17 and creatinine 1.7. Troponins are negative 3. Serum alcohol less than 10. At the time of my examination this morning, patient denies any dizziness or lightheadedness. Patient has been hydrated through the night. We will reevaluate his labs this morning. Check orthostatics and obtain an echocardiogram with Doppler study. Patient was also on SHAHRAM inhibitor at home which we will hold at this time. He is taking several psychiatric medications including Abilify, Cymbalta, Prozac, Neurontin, Seroquel , Topamax, and Xanax. Past Medical History Past Medical History: Asthma, COPD, Hypertension, Memory Impairment, Osteoarthritis (OA) Additional Past Medical History / Comment(s): BEING EVALUATED FOR MEMORY LOSS HAS AN APPOINTMENT @ [facility]-NO RESULTS YET, Hand pain, has the starting of Emphysema. C-diff approx 03/31/18 with treatment. History of Any Multi-Drug Resistant Organisms: None Reported Past Surgical History: Ear Surgery, Orthopedic Surgery Additional Past Surgical History / Comment(s): Vasectomy, right shoulder surgery , carpal tunnel, LEFT KNEE SURGERY. PAIN PROCEDURES, left ear surgery Past Anesthesia/Blood Transfusion Reactions: No Reported Reaction Past Psychological History: Depression Smoking Status: Current every day smoker Past Alcohol Use History: None Reported Additional Past Alcohol Use History / Comment(s): 1ppd since age of 14 Past Drug Use History: Marijuana Additional Drug Use History / Comment(s): every other day-LAST USED-06/30/18- INSTRUCTED TO REFRAIN FROM USE FOR AT 24 HOURS PRIOR TO PROCEDURES - Past Family History Father Family Medical History: Cancer Medications and Allergies Home Medications Medication Instructions Recorded Confirmed Type Gabapentin 800 mg PO TID 05/14/17 10/13/18 History Ibuprofen 800 mg PO BID 05/14/17 10/13/18 History ALPRAZolam [Xanax] 0.5 mg PO BID PRN 09/23/18 10/13/18 History ARIPiprazole [Abilify] 2 mg PO DAILY 09/23/18 10/13/18 History Albuterol Inhaler [Ventolin Hfa 2 puff INHALATION RT-QID PRN 09/23/18 10/13/18 History Inhaler] Aspirin EC [Ecotrin Low Dose] 81 mg PO DAILY 09/23/18 10/13/18 History DULoxetine HCL [Cymbalta] 60 mg PO DAILY 09/23/18 10/13/18 History FLUoxetine HCL [PROzac] 40 mg PO DAILY 09/23/18 10/13/18 History Lisinopril [Zestril] 20 mg PO DAILY 09/23/18 10/13/18 History QUEtiapine [SEROquel] 100 mg PO HS 09/23/18 10/13/18 History Topiramate [Topamax] 100 mg PO BID 09/23/18 10/13/18 History Allergies Allergy/AdvReac Type Severity Reaction Status Date / Time Penicillins Allergy Rash/Hives Verified 10/13/18 19:04 Physical Exam Vitals: Vital Signs Temp Pulse Pulse Resp BP BP BP 10/14/18 07:55 97.9 F 76 17 121/71 10/14/18 04:00 97.4 F L 78 17 102/61 10/14/18 01:15 79 90/63 10/14/18 01:00 74 96/64 10/14/18 00:00 97.4 F L 80 16 100/57 10/13/18 23:59 88/63 10/13/18 23:47 86/61 10/13/18 23:45 78 86/61 10/13/18 23:34 97.6 F 72 18 94/61 10/13/18 23:30 75 86/61 10/13/18 23:24 94/61 88/55 10/13/18 22:53 75 16 85/59 10/13/18 21:31 73 16 81/58 10/13/18 20:59 77 16 80/53 10/13/18 20:39 97.8 F 73 16 79/53 10/13/18 18:49 97.6 F 79 18 66/47 Pulse Ox 10/14/18 07:55 98 10/14/18 04:00 97 10/14/18 01:15 10/14/18 01:00 10/14/18 00:00 97 10/13/18 23:59 10/13/18 23:47 10/13/18 23:45 10/13/18 23:34 98 10/13/18 23:30 10/13/18 23:24 10/13/18 22:53 10/13/18 21:31 10/13/18 20:59 10/13/18 20:39 98 10/13/18 18:49 96 Intake and Output 10/13/18 10/14/18 10/14/18 22:59 06:59 14:59 Intake Total 2000 Output Total 550 500 Balance 1450 -500 Intake: Intake, IV Titration 2000 Amount Sodium Chloride 0.9% 1, 2000 000 ml @ 200 mls/hr IV . Q5H STA Rx#:[id number] Output: Urine 550 500 Post Void Residual 0 Other: Voiding Method Urinal # Voids 1 Weight 68.039 kg 73.5 kg PHYSICAL EXAMINATION: GENERAL: 52-year-old gentleman in no acute distress at the time of my examination HEENT: Head is atraumatic, normocephalic. Pupils equal, round. Sclera anicteric. Conjunctiva are clear. Mucous membranes of the mouth are moist. Neck is supple. There is no elevated jugular venous pressure. No carotid bruit is heard. HEART EXAMINATION: Heart S1, S2 normal. No murmur or gallop heard. CHEST EXAMINATION: Lungs are clear to auscultation and precussion. No chest wall tenderness is noted on palpation or with deep breathing. ABDOMEN: Soft, nontender. Bowel sounds are heard. No organomegaly noted. EXTREMITIES: 2+ peripheral pulses with no evidence of peripheral edema and no calf tenderness noted. NEUROLOGIC patient is awake, alert and oriented 3 . . Results 10/13/18 19:20 10/13/18 19:20 Cardiac Enzymes 10/13/18 10/13/18 10/14/18 Range/Units 19:20 19:20 01:15 AST 18 (17-59) U/L Troponin I <0.012 <0.012 (0.000-0.034) ng/mL 10/14/18 Range/Units 06:24 AST (17-59) U/L Troponin I <0.012 (0.000-0.034) ng/mL Coagulation 10/13/18 Range/Units 21:04 PT 10.2 (9.0-12.0) sec APTT 24.1 (22.0-30.0) sec CBC 10/13/18 Range/Units 19:20 WBC 10.4 (3.8-10.6) k/uL RBC 4.20 L (4.30-5.90) m/uL Hgb 13.6 (13.0-17.5) gm/dL Hct 42.7 (39.0-53.0) % Plt Count 230 (150-450) k/uL Comprehensive Metabolic Panel 10/13/18 Range/Units 19:20 Sodium 142 (137-145) mmol/L Potassium 4.7 (3.5-5.1) mmol/L Chloride 115 H (98-107) mmol/L Carbon Dioxide 18 L (22-30) mmol/L BUN 17 (9-20) mg/dL Creatinine 1.73 H (0.66-1.25) mg/dL Glucose 120 H (74-99) mg/dL Calcium 8.9 (8.4-10.2) mg/dL AST 18 (17-59) U/L ALT 26 (21-72) U/L Alkaline Phosphatase 102 (38-126) U/L Total Protein 6.4 (6.3-8.2) g/dL Albumin 3.6 (3.5-5.0) g/dL Current Medications Generic Name Dose Route Start Last Admin Trade Name Freq PRN Reason Stop Dose Admin Albuterol Sulfate 2.5 mg 10/14/18 07:58 Ventolin Nebulized INHALATION RT-QID PRN Shortness Of Breath Alprazolam 0.5 mg 10/14/18 07:58 Xanax PO BID PRN Anxiety Aripiprazole 2 mg 10/14/18 09:00 Abilify PO DAILY [facility] Aspirin 81 mg 10/14/18 09:00 Aspirin PO DAILY [facility] Duloxetine HCl 60 mg 10/14/18 09:00 Cymbalta PO DAILY [facility] Fluoxetine HCl 40 mg 10/14/18 09:00 Prozac PO DAILY [facility] Gabapentin 800 mg 10/14/18 09:00 Neurontin PO TID LOLY Ibuprofen 800 mg 10/14/18 09:00 Motrin PO BID [facility] Lisinopril 20 mg 10/14/18 09:00 Zestril PO DAILY [facility] Naloxone HCl 0.2 mg 10/13/18 20:23 Narcan IV Q2M PRN Opioid Reversal Quetiapine Fumarate 100 mg 10/14/18 21:00 Seroquel PO HS LOLY Topiramate 100 mg 10/14/18 09:00 Topamax PO BID [facility] Intake and Output 10/13/18 10/14/18 10/14/18 22:59 06:59 14:59 Intake Total 2000 Output Total 550 500 Balance 1450 -500 Intake: Intake, IV Titration 2000 Amount Sodium Chloride 0.9% 1, 2000 000 ml @ 200 mls/hr IV . Q5H STA Rx#:[id number] Output: Urine 550 500 Post Void Residual 0 Other: Voiding Method Urinal # Voids 1 Weight 68.039 kg 73.5 kg 10/13/18 19:20 10/13/18 19:20 EKG Interpretations (text) EKG shows normal sinus rhythm with no acute changes. Assessment and Plan Plan: Assessment and plan #1 syncope 3, likely related to hypotension. Blood pressure on arrival 66/30. #2 acute renal insufficiency, likely secondary to dehydration #3 nicotine dependence #4 history of hypertension #5 memory impairment Plan We will obtain an echocardiogram with Doppler study. Continue to hydrate the patient. Repeat lytes BUN and creatinine this morning. Check orthostatic heart rate and blood pressure every shift. Hold SHAHRAM inhibitor at this time. Further recommendations to follow. DNP note has been reviewed, I agree with a documented findings and plan of care. Patient was seen and examined.
--- NOTE | 2018-10-14 10:49 | ECHOF ---
Referral Reason:syncope MEASUREMENTS -------- HEIGHT: 167.6 cm WEIGHT: 73.5 kg BP: IVSd: 1.1 cm (0.6 - 1.1) LVIDd: 4.2 cm (3.9 - 5.3) LVPWd: 1.1 cm (0.6 - 1.1) IVSs: 1.8 cm LVIDs: 2.7 cm LVPWs: 1.7 cm LAESV Index (A-L): 20.04 ml/m Ao Diam: 2.7 cm (2.0 - 3.7) AV Cusp: 1.8 cm (1.5 - 2.6) LA Diam: 2.3 cm (2.7 - 3.8) MV EXCURSION: 20.824 mm (> 18.000) MV EF SLOPE: 120 mm/s (70 - 150) EPSS: 1.5 cm MV E Levon: 0.73 m/s MV DecT: 195 ms MV A Levon: 0.69 m/s MV E/A Ratio: 1.06 RAP: 5.00 mmHg RVSP: 24.78 mmHg FINDINGS -------- Sinus rhythm. This was a technically good study. The left ventricular size is normal. Left ventricular wall thickness is normal. Overall left vent ricular systolic function is normal with, an EF between 55 - 60 %. The right ventricle is normal in size and function. The left atrium is normal in size. The right atrium is normal in size. The aortic valve is trileaflet, and appears structurally normal. No aortic stenosis or regurgitation. There is trace mitral regurgitation. Mild tricuspid regurgitation present. The right ventricular systolic pressure, as measured by Doppl er, is 24.78mmHg. Pulmonic valve appears structurally normal. The aortic root size is normal. Normal inferior vena cava with normal inspiratory collapse consistent with estimated right atrial pre ssure of 5 mmHg. The pericardium is normal. CONCLUSIONS -------- 1. Sinus rhythm. 2. This was a technically good study. 3. The left ventricular size is normal. 4. Left ventricular wall thickness is normal. 5. Overall left ventricular systolic function is normal with, an EF between 55 - 60 %. 6. The right ventricle is normal in size and function. 7. The left atrium is normal in size. 8. The right atrium is normal in size. 9. The aortic valve is trileaflet, and appears structurally normal. No aortic stenosis or regurgitati on. 10. There is trace mitral regurgitation. 11. Mild tricuspid regurgitation present. 12. The right ventricular systolic pressure, as measured by Doppler, is 24.78mmHg. 13. Pulmonic valve appears structurally normal. 14. The aortic root size is normal. 15. Normal inferior vena cava with normal inspiratory collapse consistent with estimated right atrial pressure of 5 mmHg. 16. The pericardium is normal. SPANISH TRANSLATOR: Simin Galeas RDCS
[2018-10-14] MEDS: TOPIRAMATE 100 MG TAB PO SCH ×2 (11:53→20:58)
[2018-10-14] MEDS: FLUoxetine HCL 20 MG CAP PO SCH (11:53)
[2018-10-14] MEDS: ASPIRIN 81 MG PO SCH (11:54)
[2018-10-14] MEDS: DULoxetine HCL 60 MG CAPSULE.DR PO SCH (11:54)
[2018-10-14] MEDS: GABAPENTIN 400 MG CAP PO SCH ×3 (11:57→21:11)
[2018-10-14] MEDS: ARIPiprazole 2 MG TAB PO SCH (11:57)
[2018-10-14 12:11] LABS: Urine Alcohol Negative (Negative); Urine Barbiturate Negative (Negative); Urine Cocaine Negative (Negative); Urine Methadone Negative (Negative); Urine Opiates Negative (Negative); Urine Phencyclidine Negative (Negative)
--- NOTE | 2018-10-14 14:13 | P.HPIM ---
History of Present Illness H&P Date: 10/14/18 Chief Complaint: Syncope This is a 52-year-old male patient of Dr. Zhou with past medical history of hypertension, mild intermittent asthma, COPD, short-term memory deficit, C. diff in March 2018, recurrent depression tobacco use and dependence. Regarding short-term memory deficit, patient has been working with Dr. Danilo Ball and was sent to [facility] for testing and results of this are not known. Patient apparently had 4 episodes of passing out yesterday. The first one happened around 5 or 5:30 in the evening and lasted for about 2 minutes. He had his last episode in front of EMS. Patient states that he felt like he was in a dream. Family members state that after he had slow speech. Patient denies any headache no focal weakness or numbness. Patient denies any incontinence. He does not have oxygen, CPAP. He had 1 fall about one month ago where her legs became shaky and the gave out on him. Patient does relate that he smokes marijuana at least 2 times per week and the last time was just before the syncopal episodes. Patient is also in the process of smoking cessation. He normally smokes 2 packs per day and is down to three-quarter pack. He denies any alcohol use. Patient is noted to be on multiple psychiatric medications Patient came into the clinic in [facility] emergency center for evaluation. Patient was afebrile, blood pressure 66/47, heart rate 79, pulse ox 96%. EKG was a sinus rhythm with no acute ST changes. CBC within normal limits, chloride 1:15, CO2 18, BUN 17 creatinine 1.73, blood sugar 120. Baseline creatinine is 0.8. Patient denies history of diabetes. Troponin negative, serum alcohol less than 10, magnesium 1.9. Chest x-ray is normal. CAT scan of the brain normal. Carotid Doppler showed no hemodynamically significant stenosis. Patient was given 2 L of IV fluid, EEG, echocardiogram, cardiology consult requested and patient admitted to the cardiac stepdown unit. Echocardiogram reveals EF of 55-60%, mild tricuspid regurgitation. Repeat troponins are negative. Cardiology has evaluated with recommendations to hydrate patient and repeat electrolytes and renal function. Orthostatics have been ordered and SHAHRAM inhibitor on hold. Review of Systems All systems: negative Constitutional: Reports fatigue, Denies chills, Denies fever, Denies poor appetite, Denies weakness, Denies weight loss Eyes: denies blurred vision, denies pain Ears, nose, mouth and throat: Denies dysphagia, Denies headache, Denies hoarseness, Denies sore throat, Denies vertigo Cardiovascular: Reports syncope, Denies chest pain, Denies decreased exercise tolerance, Denies dyspnea on exertion, Denies edema, Denies leg edema, Denies palpitations, Denies shortness of breath Respiratory: Denies cough, Denies cough with sputum, Denies dyspnea, Denies excessive sputum, Denies hemoptysis, Denies home oxygen, Denies wheezing Gastrointestinal: Denies abdominal pain, Denies diarrhea, Denies nausea, Denies vomiting Genitourinary: Denies dysuria, Denies urinary retention Musculoskeletal: Denies frequent falls, Denies gait dysfunction, Denies muscle weakness, Denies myalgias Integumentary: Denies pruritus, Denies rash, Denies wounds Neurological: Reports memory loss, Reports syncope, Denies aphasia, Denies change in mentation, Denies gait dysfunction, Denies head injury, Denies headaches, Denies loss of vision, Denies numbness, Denies seizures, Denies weakness Psychiatric: Denies anxiety, Denies depression Endocrine: Denies fatigue, Denies weight change Past Medical History Past Medical History: Asthma, COPD, Hypertension, Memory Impairment, Osteoarthritis (OA) Additional Past Medical History / Comment(s): BEING EVALUATED FOR MEMORY LOSS HAS AN APPOINTMENT @ [facility]-NO RESULTS YET, Hand pain, has the starting of Emphysema. C-diff approx 03/31/18 with treatment. History of Any Multi-Drug Resistant Organisms: None Reported Past Surgical History: Ear Surgery, Orthopedic Surgery Additional Past Surgical History / Comment(s): Vasectomy, right shoulder surgery , carpal tunnel, LEFT KNEE SURGERY. PAIN PROCEDURES, left ear surgery Past Anesthesia/Blood Transfusion Reactions: No Reported Reaction Past Psychological History: Depression Smoking Status: Current every day smoker Past Alcohol Use History: None Reported Additional Past Alcohol Use History / Comment(s): Patient is a smoker of 2 packs per day since he was 14 years of age and is now down to three-quarter pack per day. He smokes marijuana 2 times per week. He denies any alcohol use. He lives at home with his . Past Drug Use History: Marijuana Additional Drug Use History / Comment(s): every other day-LAST USED-06/30/18- INSTRUCTED TO REFRAIN FROM USE FOR AT 24 HOURS PRIOR TO PROCEDURES - Past Family History Father Family Medical History: Cancer Additional Family Medical History / Comment(s): Father at age 77 from brain cancer Mother Additional Family Medical History / Comment(s): Mother at age 70 from heart failure. Sister(s) Additional Family Medical History / Comment(s): Patient has 2 sisters with no major medical problems. Brother(s) Additional Family Medical History / Comment(s): Patient has a total of 3 brothers. One has seizures possibly secondary to motor cycle accident Daughter(s) Additional Family Medical History / Comment(s): Patient has 2 daughters, one his gallbladder problems and wonders no major medical problems. Son(s) Additional Family Medical History / Comment(s): Patient has 2 sons and both smoke marijuana. He denies any other illicit drug use. Medications and Allergies Home Medications Medication Instructions Recorded Confirmed Type Gabapentin 800 mg PO TID 05/14/17 10/13/18 History Ibuprofen 800 mg PO BID 05/14/17 10/13/18 History ALPRAZolam [Xanax] 0.5 mg PO BID PRN 09/23/18 10/13/18 History ARIPiprazole [Abilify] 2 mg PO DAILY 09/23/18 10/13/18 History Albuterol Inhaler [Ventolin Hfa 2 puff INHALATION RT-QID PRN 09/23/18 10/13/18 History Inhaler] Aspirin EC [Ecotrin Low Dose] 81 mg PO DAILY 09/23/18 10/13/18 History DULoxetine HCL [Cymbalta] 60 mg PO DAILY 09/23/18 10/13/18 History FLUoxetine HCL [PROzac] 40 mg PO DAILY 09/23/18 10/13/18 History Lisinopril [Zestril] 20 mg PO DAILY 09/23/18 10/13/18 History QUEtiapine [SEROquel] 100 mg PO HS 09/23/18 10/13/18 History Topiramate [Topamax] 100 mg PO BID 09/23/18 10/13/18 History Allergies Allergy/AdvReac Type Severity Reaction Status Date / Time Penicillins Allergy Rash/Hives Verified 10/13/18 19:04 Physical Exam Vitals: Vital Signs Temp Pulse Pulse Resp BP BP BP 10/14/18 07:55 97.9 F 76 17 121/71 10/14/18 04:00 97.4 F L 78 17 102/61 10/14/18 01:15 79 90/63 10/14/18 01:00 74 96/64 10/14/18 00:00 97.4 F L 80 16 100/57 10/13/18 23:59 88/63 10/13/18 23:47 86/61 10/13/18 23:45 78 86/61 10/13/18 23:34 97.6 F 72 18 94/61 10/13/18 23:30 75 86/61 10/13/18 23:24 94/61 88/55 10/13/18 22:53 75 16 85/59 10/13/18 21:31 73 16 81/58 10/13/18 20:59 77 16 80/53 10/13/18 20:39 97.8 F 73 16 79/53 10/13/18 18:49 97.6 F 79 18 66/47 Pulse Ox 10/14/18 07:55 98 10/14/18 04:00 97 10/14/18 01:15 10/14/18 01:00 10/14/18 00:00 97 10/13/18 23:59 10/13/18 23:47 10/13/18 23:45 10/13/18 23:34 98 10/13/18 23:30 10/13/18 23:24 10/13/18 22:53 10/13/18 21:31 10/13/18 20:59 10/13/18 20:39 98 10/13/18 18:49 96 Intake and Output 10/13/18 10/14/18 10/14/18 22:59 06:59 14:59 Intake Total 2000 Output Total 550 500 Balance 1450 -500 Intake: Intake, IV Titration 2000 Amount Sodium Chloride 0.9% 1, 2000 000 ml @ 200 mls/hr IV . Q5H STA Rx#:[id number] Output: Urine 550 500 Post Void Residual 0 Other: Voiding Method Urinal # Voids 1 Weight 68.039 kg 73.5 kg Gen: This is a 52-year-old male. He is resting in bed and appears to be comfortable and in no acute distress. Noted that he seems to be slow to answer questions. HEENT: Head is atraumatic, normocephalic. Pupils equal, round. Sclerae is anicteric. NECK: Supple. No JVD. No lymphadenopathy. No thyromegaly. LUNGS: Clear to auscultation. No wheezes or rhonchi. No intercostal retractions. HEART: Regular rate and rhythm. No murmur. ABDOMEN: Soft. Bowel sounds are present. No masses. No tenderness. EXTREMITIES: No pedal edema. No calf tenderness. Dorsalis pedis +2 bilaterally. NEUROLOGICAL: Patient is awake, alert and oriented x3. Cranial nerves 2 through 12 are grossly intact. Results CBC & Chem 7: 10/13/18 19:20 10/13/18 19:20 Labs: Abnormal Lab Results - Last 24 Hours (Table) 10/13/18 10/13/18 10/13/18 Range/Units 19:20 19:20 19:23 RBC 4.20 L (4.30-5.90) m/uL MCV 101.7 H (80.0-100.0) fL Chloride 115 H (98-107) mmol/L Carbon Dioxide 18 L (22-30) mmol/L Creatinine 1.73 H (0.66-1.25) mg/dL Glucose 120 H (74-99) mg/dL POC Glucose (mg/dL) 133 H (75-99) mg/dL Urine Protein (Negative) Hyaline Casts (0-2) /lpf Urine Mucus (None) /hpf 10/13/18 Range/Units 23:54 RBC (4.30-5.90) m/uL MCV (80.0-100.0) fL Chloride (98-107) mmol/L Carbon Dioxide (22-30) mmol/L Creatinine (0.66-1.25) mg/dL Glucose (74-99) mg/dL POC Glucose (mg/dL) (75-99) mg/dL Urine Protein 1+ H (Negative) Hyaline Casts 15 H (0-2) /lpf Urine Mucus Few H (None) /hpf Thrombosis Risk Factor Assmnt - DVT/VTE Prophylaxis DVT/VTE Prophylaxis: Pharmacologic Prophylaxis ordered - Choose All That Apply Any of the Below Risk Factors Present?: Yes Each Factor Represents 1 point: Abnormal pulmonary function (COPD), Age 41-60 years Other Risk Factors: No Other congenital or acquired thrombophilia - If yes, enter type in comment: No Thrombosis Risk Factor Assessment Total Risk Factor Score: 2 Thrombosis Risk Factor Assessment Level: Low Risk Assessment and Plan Plan: 1. Syncope. Patient admitted to the selective stepdown unit. Cardiology consult. Orthostatic vital signs. Echocardiogram in progress. Lisinopril on hold. 2. Acute kidney injury. SHAHRAM inhibitor discontinued, continue IV fluids, recheck labs in the morning. 3. Hypertension. SHAHRAM inhibitor on hold. 4. Mild intermittent asthma and COPD, stable. 5. Recurrent depression and generalized anxiety disorder. Continue Xanax or 0.5 mg twice daily as needed, Abilify 2 mg daily, Cymbalta 60 mg daily, Prozac 40 mg daily, Neurontin 800 mg 3 times daily, Topamax 100 mg twice daily. 6. Tobacco use and dependence. Smoking cessation, nicotine patch. 7. Regular marijuana use, discussed cessation. 8. Short-term memory deficit under the care of Dr. Danilo Ball with workup done at [facility]. Family does not know results of testing. Recommended follow-up after discharge and avoiding marijuana use. 9. GI prophylaxis. Pepcid. 10. DVT prophylaxis. Lovenox. Patient will be admitted to the hospital for a minimum of 2 night stay. Discharge plan: Return home Impression and plan of care have been directed as dictated by the signing physician. Jennifer Landa nurse practitioner acting as scribe for signing physician.
[2018-10-14] MEDS: NICOTINE 14MG/24HR PATCH TRANSDERM SCH (20:12)
[2018-10-14] MEDS: SODIUM CHLORIDE 0.9% 1,000 ML IV SCH (20:13)
[2018-10-14] MEDS ORDERED: QUEtiapine 100 MG TAB PO SCH (21:00)
[2018-10-15 06:29] LABS: Anion Gap 5 mmol/L; Blood Urea Nitrogen 14 mg/dL (9-20); Calcium 8.7 mg/dL (8.4-10.2); Carbon Dioxide 19 mmol/L (22-30); Chloride 120 mmol/L (98-107); Glucose 73 mg/dL (74-99); Potassium 4.4 mmol/L (3.5-5.1); Sodium 144 mmol/L (137-145)
[2018-10-15] MEDS: SODIUM CHLORIDE 0.9% 1,000 ML IV SCH (06:30)
--- NOTE | 2018-10-15 09:27 | EEG ---
ELECTROENCEPHALOGRAM REPORT DATE OF PROCEDURE: 10/14/2018 ELECTROENCEPHALOGRAM (EEG) REPORT: TECHNIQUE: A routine 18-channel EEG was performed with video using the 10-20 international placement system. HISTORY: Multiple syncopal episodes. Patient was not feeling well prior to the episodes. Other history includes a concussion when he was 3 years old and a suspected cyst on the brain?. CURRENT MEDICATIONS: Xanax, Topamax, Seroquel, Prozac, Cymbalta, gabapentin/Neurontin. STUDY DURATION: 34 minutes. FINDINGS: BACKGROUND: The background activity consisted of 8-9 Hz rhythmic waveforms, symmetrically distributed to both posterior quadrants. ACTIVATION: Hyperventilation not performed. PHOTIC STIMULATION: Symmetric driving seen. SLEEP: Drowsy. ABNORMALITIES: None. IMPRESSION: Normal EEG. No epileptiform activity was present. No seizures were recorded. MMODL / IJN: [id number] /
[2018-10-15] MEDS: GABAPENTIN 400 MG CAP PO SCH (11:00)
[2018-10-15] MEDS: FLUoxetine HCL 20 MG CAP PO SCH (11:00)
[2018-10-15] MEDS: TOPIRAMATE 100 MG TAB PO SCH (11:00)
[2018-10-15] MEDS: ASPIRIN 81 MG PO SCH (11:00)
[2018-10-15] MEDS: NICOTINE 14MG/24HR PATCH TRANSDERM SCH (11:00)
[2018-10-15] MEDS: DULoxetine HCL 60 MG CAPSULE.DR PO SCH (11:00)
--- NOTE | 2018-10-15 11:17 | CT ---
EXAMINATION TYPE: CT abdomen pelvis w con DATE OF EXAM: 10/15/2018 COMPARISON: None INDICATION: Hematuria DLP: 796.1 mGycm, Automated exposure control for dose reduction was used. CONTRAST: 100 ml mL of Isovue 300. Study performed with Oral Contrast TECHNIQUE: Axial images were obtained from above the diaphragm to the pubic rami in the axial plane a t 5 mm thick sections. Reconstructed images are reviewed on the computer in the coronal plane. FINDINGS: Limited CT sections are obtained the lung bases. The lung bases are clear. CT ABDOMEN: Liver: Normal Spleen: Normal Pancreas: Normal Adrenal glands: The adrenal glands are normal. Gallbladder: Normal Kidneys: No masses are evident. No hydronephrosis is present. No cysts are present. Delayed images were obtained through the kidneys, which remain unremarkable. No obvious renal stones are evident. N o hydroureter is evident. Aorta: Vascular calcification is within the aorta. Inferior vena cava: Normal. CT PELVIS: Loops of bowel within the abdomen and pelvis are normal. Studies performed without oral contrast limiting bowel evaluation. Appendix: Normal as visualized. Urinary bladder: Normal. Genitourinary structures: Prostate is normal. Osseous structures: No suspicious lytic or sclerotic lesions. IMPRESSIONS: 1. Normal CT abdomen pelvis. 2. No abnormal CT findings to account for hematuria.
[2018-10-15 11:22] VITALS: TEMP 97.6
[2018-10-15] MEDS: ARIPiprazole 2 MG TAB PO SCH (11:33)
[2018-10-15 12:38] VITALS: BP 144/87; PULSE 73; RESP 17
[2018-10-15 13:11] LABS: Appearance,Urine Clear (Clear); Bilirubin,Urine Negative (Negative); Blood,Urine Moderate (Negative); Color,Urine Light Yellow; Glucose,Urine (UA) Negative (Negative); Ketones,Urine Negative (Negative); Leukocyte Esterase,Urine Negative (Negative); Nitrite,Urine Negative (Negative); Protein,Urine Negative (Negative); RBC,Urine 59 /hpf (0-5); Specific Gravity,Urine 1.018 (1.001-1.035); Urobilinogen,Urine <2.0 mg/dL (<2.0)
--- NOTE | 2018-10-15 14:13 | P.DS ---
Providers Date of admission: 10/14/18 10:38 Expected date of discharge: 10/15/18 Attending physician: Brenda Lerma Consults: 10/13/18 20:23 Consult Physician Routine Consulting Provider: William Espinoza Consult Reason/Comments: syncope Do you want consulting provider notified?: Yes Primary care physician: [facility] Course: This is a 52-year-old male patient of Dr. Zhou with past medical history of hypertension, mild intermittent asthma, COPD, short-term memory deficit, C. diff in March 2018, recurrent depression tobacco use and dependence. Regarding short-term memory deficit, patient has been working with Dr. Danilo Ball and was sent to [place] for testing and results of this are not known. Patient apparently had 4 episodes of passing out yesterday. The first one happened around 5 or 5:30 in the evening and lasted for about 2 minutes. He had his last episode in front of EMS. Patient states that he felt like he was in a dream. Family members state that after he had slow speech. Patient denies any headache no focal weakness or numbness. Patient denies any incontinence. He does not have oxygen, CPAP. He had 1 fall about one month ago where her legs became shaky and the gave out on him. Patient does relate that he smokes marijuana at least 2 times per week and the last time was just before the syncopal episodes. Patient is also in the process of smoking cessation. He normally smokes 2 packs per day and is down to three-quarter pack. He denies any alcohol use. Patient is noted to be on multiple psychiatric medications Patient came into the clinic in [facility] emergency center for evaluation. Patient was afebrile, blood pressure 66/47, heart rate 79, pulse ox 96%. EKG was a sinus rhythm with no acute ST changes. CBC within normal limits, chloride 1:15, CO2 18, BUN 17 creatinine 1.73, blood sugar 120. Baseline creatinine is 0.8. Patient denies history of diabetes. Troponin negative, serum alcohol less than 10, magnesium 1.9. Chest x-ray is normal. CAT scan of the brain normal. Carotid Doppler showed no hemodynamically significant stenosis. Patient was given 2 L of IV fluid, EEG, echocardiogram, cardiology consult requested and patient admitted to the cardiac stepdown unit. Echocardiogram reveals EF of 55-60%, mild tricuspid regurgitation. Repeat troponins are negative. Cardiology has evaluated with recommendations to hydrate patient and repeat electrolytes and renal function. Orthostatics have been ordered and SHAHRAM inhibitor on hold. 10/15: Repeat creatinine 1.05, repeat troponins were all negative, TSH 1.690. EEG was normal. No epileptiform activity present. No seizures recorded. Patient complains of having blood in his urine this morning. Repeat urinalysis ordered which is showing moderate blood, RBCs 59, no white cells. CAT scan of the abdomen and pelvis ordered which was negative. Patient will be discharged home today in stable condition with follow-up appointments. 30 day event monitor will be arranged prior to discharge. Regarding follow-up, Dr. Zhou is no longer practicing and patient would like to be established with Dr. Díaz. Discharge diagnoses: 1. Syncope of unclear etiology. 2. Acute kidney injury. 3. Hypertension. 4. Mild intermittent asthma and COPD, stable. 5. Recurrent depression and generalized anxiety disorder. 6. Tobacco use and dependence. 7. Regular marijuana use, discussed cessation. 8. Short-term memory deficit under the care of Dr. Danilo Ball Discharge plan: Return home Impression and plan of care have been directed as dictated by the signing physician. Jennifer Landa nurse practitioner acting as scribe for signing physician. Patient Condition at Discharge: Good Plan - Discharge Summary Discharge Rx Participant: No New Discharge Prescriptions: No Action Ibuprofen 800 mg PO BID Gabapentin 800 mg PO TID Aspirin EC [Ecotrin Low Dose] 81 mg PO DAILY Albuterol Inhaler [Ventolin Hfa Inhaler] 2 puff INHALATION RT-QID PRN PRN Reason: Shortness Of Breath Topiramate [Topamax] 100 mg PO BID QUEtiapine [SEROquel] 100 mg PO HS Lisinopril [Zestril] 20 mg PO DAILY FLUoxetine HCL [PROzac] 40 mg PO DAILY DULoxetine HCL [Cymbalta] 60 mg PO DAILY ARIPiprazole [Abilify] 2 mg PO DAILY ALPRAZolam [Xanax] 0.5 mg PO BID PRN PRN Reason: Anxiety Discharge Medication List Gabapentin 800 mg PO TID 05/14/17 [History] ALPRAZolam [Xanax] 0.5 mg PO BID PRN 09/23/18 [History] ARIPiprazole [Abilify] 2 mg PO DAILY 09/23/18 [History] Albuterol Inhaler [Ventolin Hfa Inhaler] 2 puff INHALATION RT-QID PRN 09/23/18 [ History] Aspirin EC [Ecotrin Low Dose] 81 mg PO DAILY 09/23/18 [History] DULoxetine HCL [Cymbalta] 60 mg PO DAILY 09/23/18 [History] FLUoxetine HCL [PROzac] 40 mg PO DAILY 09/23/18 [History] Lisinopril [Zestril] 20 mg PO DAILY 09/23/18 [History] QUEtiapine [SEROquel] 100 mg PO HS 09/23/18 [History] Topiramate [Topamax] 100 mg PO BID 09/23/18 [History] Nicotine 14Mg/24Hr Patch [Habitrol] 1 patch TRANSDERM DAILY #30 patch 10/15/18 [ Rx] Follow up Appointment(s)/Referral(s): Chely Tinsley MD [STAFF PHYSICIAN] - 1 Week Yony Díaz MD [REFERRING] - 1 Week (Office closed for the weekend, please call and make follow up appointment during normal business hours. ) Patient Instructions/Handouts: Dehydration (DC), Syncope (DC)
--- NOTE | 2018-10-15 14:30 | PN ---
PROGRESS NOTE Mr. Munguia is a 52-year-old male who presented with syncopal episode that appears to be orthostatic in nature. He has underwent an echocardiogram that revealed preserved left ventricular size and systolic function. On presentation, he had evidence of renal function abnormality that resolved consistent with dehydration. He is doing well this morning. He is ambulating without difficulty, denying any dizziness or palpitation. Denies any nausea. He continues to be on Abilify, aspirin, Prozac, Neurontin, nicotine patch, and Seroquel in addition to Topamax. PHYSICAL EXAMINATION: Blood pressure 144/80 with a heart rate in 70s. LUNGS: Clear. Heart: Regular rate and rhythm S1, S2. No S3. No rub. ABDOMEN: Soft nontender. EXTREMITIES: No edema. LAB DATA: Lab data revealed a BUN and creatinine of 14 and 1.05. Potassium of 4.4. IMPRESSION: 1. Syncopal episode, most likely related to orthostatic hypotension and dehydration. 2. Renal failure with dehydration, resolved. 3. Chronic tobacco user. 4. Memory impairment, chronic. RECOMMENDATION: From the cardiac standpoint, stable, we will continue to hold on the SHAHRAM inhibitor at this time. From the cardiac standpoint, no further workup will be needed. We will be glad to see him again. Please feel free to call us for any questions. MMODL / IJN: [id number] /
== END 2018-10-15 18:47 | disposition home or self-care (01) | DRG 641 ==
LOC: EC 18:47 → 3SCARD 20:23 → OBSVTOIN 10-14 10:38 → 3SCARD 10-15 16:29
PROVIDERS: ADMIT Family Medicine; ATTEND Family Medicine
DX: E86.0 Dehydration (principal); F33.9 Major depressive disorder, recurrent, unspecified; N17.9 Acute kidney failure, unspecified; I07.1 Rheumatic tricuspid insufficiency; F17.210 Nicotine dependence, cigarettes, uncomplicated; F41.1 Generalized anxiety disorder; I10 Essential (primary) hypertension; I95.1 Orthostatic hypotension; J44.9 Chronic obstructive pulmonary disease, unspecified; J45.20 Mild intermittent asthma, uncomplicated; M19.90 Unspecified osteoarthritis, unspecified site; R41.3 Other amnesia; Z79.82 Long term (current) use of aspirin; Z79.899 Other long term (current) drug therapy; Z88.0 Allergy status to penicillin; Z80.8 Family history of malignant neoplasm of other organs or systems; Z82.49 Family history of ischemic heart disease and other diseases of the circulatory system
CPT/HCPCS: 36415; 70450; 71046; 74177; 80048; 80053; 80306; 80320; 81001; 83735; 84443; 84484; 85025; 85610; 85730; 93005; 93306; 93880; 94640; 95816; 96360; 96361; 99285

== ENCOUNTER 2019-01-01 14:29 | Emergency (ER) | payer OTHER ==
[2019-01-01 14:32] VITALS: RESP 18
[2019-01-01] MEDS ORDERED: ONDANSETRON 4 MG/2 ML VIAL IVP STA (15:07)
[2019-01-01] MEDS ORDERED: SODIUM CHLORIDE 0.9% 1,000 ML IV STA ×2 (15:07)
[2019-01-01] MEDS ORDERED: MORPHINE SULFATE 4 MG/ML SYRINGE IV STA (15:07)
[2019-01-01] MEDS ORDERED: KETOROLAC 30 MG/ML 1 ML VIAL IVP STA (15:07)
[2019-01-01 15:15] LABS: Basophils % (A) 0 %; Eosinophils # (A) 0.2 k/uL (0-0.7); Eosinophils % (A) 2 %; HCT 44.5 % (39.0-53.0); HGB 14.6 gm/dL (13.0-17.5); Lymphocytes # (A) 2.4 k/uL (1.0-4.8); Lymphocytes % (A) 21 %; MCHC 32.9 g/dL (31.0-37.0); MCV 97.3 fL (80.0-100.0); Mean Platelet Volume 7.7; Monocytes # (A) 0.6 k/uL (0-1.0); Monocytes % (A) 5 %; Neutrophils # (A) 7.8 k/uL (1.3-7.7); Neutrophils % (A) 70 %; Platelet Count 257 k/uL (150-450); RBC 4.57 m/uL (4.30-5.90); RDW 13.3 % (11.5-15.5); WBC 11.2 k/uL (3.8-10.6)
[2019-01-01 15:23] LABS: ALT 23 U/L (21-72); AST 22 U/L (17-59); Albumin 4.6 g/dL (3.5-5.0); Alkaline Phosphatase 106 U/L (38-126); Amylase 154 U/L (30-110); Anion Gap 9 mmol/L; Blood Urea Nitrogen 11 mg/dL (9-20); Calcium 9.5 mg/dL (8.4-10.2); Carbon Dioxide 26 mmol/L (22-30); Chloride 107 mmol/L (98-107); Glucose 89 mg/dL (74-99); Lipase 438 U/L (23-300); Potassium 3.4 mmol/L (3.5-5.1); Sodium 142 mmol/L (137-145); Total Bilirubin 0.7 mg/dL (0.2-1.3); Total Protein 7.8 g/dL (6.3-8.2)
--- NOTE | 2019-01-01 15:38 | XR ---
EXAMINATION TYPE: XR KUB DATE OF EXAM: 01/01/2019 COMPARISON: NONE HISTORY: Left flank pain TECHNIQUE: 2 views upright FINDINGS: Bowel gas pattern is normal. There is no sign of intestinal obstruction or pneumoperitoneum . Fecal pattern is normal. Lung bases are clear. There is a faint 5 mm calcification in the left para spinal region at L4 level that could be a proximal ureteral calculus. IMPRESSION: Possible left side ureteral calculus. CT scan of 10/15/2018 shows small calculus in the le ft kidney that is probably migrated.
--- NOTE | 2019-01-01 15:39 | ED ---
Abdominal Pain HPI - General Chief Complaint: Abdominal Pain Stated Complaint: Flank pain Time Seen by Provider: 01/01/19 14:44 Source: patient, RN notes reviewed, old records reviewed Mode of arrival: ambulatory Limitations: no limitations - History of Present Illness Initial Comments: Patient is an 83-year-old male presents raise from today for evaluation of left- sided flank pain for the past 2 days. Patient states he has noticed dark urine. He's had no previous history of kidney stones. He reports occasional vomiting episodes. Denies any changes in stools. Patient states he has been increasingly gassy. He states that he has had no bloody emesis or stools. - Related Data Home Medications Medication Instructions Recorded Confirmed RX: Gabapentin 800 mg PO TID 05/14/17 01/01/19 RX: ALPRAZolam [Xanax] 0.5 mg PO BID PRN 09/23/18 01/01/19 RX: ARIPiprazole [Abilify] 2 mg PO DAILY 09/23/18 01/01/19 RX: Albuterol Inhaler [Ventolin 2 puff INHALATION RT-QID PRN 09/23/18 01/01/19 Hfa Inhaler] RX: Aspirin EC [Ecotrin Low Dose] 81 mg PO DAILY 09/23/18 01/01/19 RX: DULoxetine HCL [Cymbalta] 60 mg PO DAILY 09/23/18 01/01/19 RX: QUEtiapine [SEROquel] 100 mg PO HS 09/23/18 01/01/19 RX: Topiramate [Topamax] 100 mg PO DAILY 09/23/18 01/01/19 RX: FLUoxetine HCL [PROzac] 10 mg PO DAILY 01/01/19 01/01/19 Previous Rx's Medication Instructions Recorded RX: Nicotine 14Mg/24Hr Patch 1 patch TRANSDERM DAILY #30 patch 10/15/18 [Habitrol] HYDROcodone/APAP 5-325MG [[place] 1 tab PO Q6HR PRN #10 tab 01/01/19 5-325] Ketorolac [Toradol] 10 mg PO Q6HR #15 tab 01/01/19 Ondansetron [Zofran ODT] 4 mg PO Q8HR #12 tab 01/01/19 Tamsulosin [Flomax] 0.4 mg PO DAILY #10 cap 01/01/19 Allergies Allergy/AdvReac Type Severity Reaction Status Date / Time Penicillins Allergy Rash/Hives Verified 01/01/19 14:43 Review of Systems ROS Statement: Those systems with pertinent positive or pertinent negative responses have been documented in the HPI. ROS Other: All systems not noted in ROS Statement are negative. Past Medical History Past Medical History: Asthma, COPD, Hypertension, Memory Impairment, Osteoarthritis (OA) Additional Past Medical History / Comment(s): BEING EVALUATED FOR MEMORY LOSS HAS AN APPOINTMENT @ [facility]-NO RESULTS YET, Hand pain, has the starting of Emphysema. C-diff approx 03/31/18 with treatment. History of Any Multi-Drug Resistant Organisms: None Reported Past Surgical History: Ear Surgery, Orthopedic Surgery Additional Past Surgical History / Comment(s): Vasectomy, right shoulder s urgery, carpal tunnel, LEFT KNEE SURGERY. PAIN PROCEDURES, left ear surgery Past Anesthesia/Blood Transfusion Reactions: No Reported Reaction Past Psychological History: Depression Smoking Status: Current every day smoker Past Alcohol Use History: None Reported Past Drug Use History: Marijuana - Past Family History Father Family Medical History: Cancer Additional Family Medical History / Comment(s): Father at age 77 from brain cancer Mother Additional Family Medical History / Comment(s): Mother at age 70 from heart failure. Sister(s) Additional Family Medical History / Comment(s): Patient has 2 sisters with no major medical problems. Brother(s) Additional Family Medical History / Comment(s): Patient has a total of 3 brothers. One has seizures possibly secondary to motor cycle accident Daughter(s) Additional Family Medical History / Comment(s): Patient has 2 daughters, one his gallbladder problems and wonders no major medical problems. Son(s) Additional Family Medical History / Comment(s): Patient has 2 sons and both smoke marijuana. He denies any other illicit drug use. General Exam - General Exam Comments Initial Comments: 53-year-old male. Alert and oriented 3. No significant distress. Limitations: no limitations General appearance: alert, in no apparent distress Head exam: Present: atraumatic, normocephalic, normal inspection Eye exam: Present: normal appearance, PERRL, EOMI. Absent: scleral icterus, conjunctival injection, periorbital swelling ENT exam: Present: normal exam, mucous membranes moist Neck exam: Present: normal inspection. Absent: tenderness, meningismus, lymph adenopathy Respiratory exam: Present: normal lung sounds bilaterally. Absent: respiratory distress, wheezes, rales, rhonchi, stridor Cardiovascular Exam: Present: regular rate, normal rhythm, normal heart sounds. Absent: systolic murmur, diastolic murmur, rubs, gallop, clicks GI/Abdominal exam: Present: soft, normal bowel sounds, other (Left CVA tenderness.). Absent: distended, tenderness, guarding, rebound, rigid Extremities exam: Present: normal inspection, full ROM, normal capillary refill. Absent: tenderness, pedal edema, joint swelling, calf tenderness Back exam: Present: normal inspection Neurological exam: Present: alert, oriented X3, CN II-XII intact Psychiatric exam: Present: normal affect, normal mood Skin exam: Present: warm, dry, intact, normal color. Absent: rash Course Vital Signs 01/01/19 14:30 Temperature 98.8 F Pulse Rate 74 Respiratory 18 Rate Blood Pressure 168/98 O2 Sat by Pulse 99 Oximetry - Reevaluation(s) Reevaluation #1: 01/01/19 17:41 patient's pain is just pain is well-controlled and ED. Medical Decision Making - Medical Decision Making This patient's a 53-year-old male comes in today for evaluation for left-sided flank pain onset 2 days. Reports dark urine. He does have some left-sided CVA tenderness on exam. Otherwise vital signs are stable, no fever. At this time patient's labwork was reviewed. He has evidence of hematuria. Some white blood cells noted. Urine culture completed. No bacteria noted in the urine. White blood cell count is within normal limits. Patient's KUB x-ray shows evidence of a 5 mm [id number] calculus consistent with patient's pain and lab values. Concern for passing a kidney stone. It measures 5 mm on patient's previous computed tomography scan in 2018. I discussed with Patient is likely the cause of this pain. He also had mildly elevated pancreas enzymes. Patient abdomen is soft, nontender. Patient will be discharged at this time with follow-up referral for urology. Discharged with Toradol Flomax and Peosta and Zofran. Discussed following up with primary care doctor. All questions answered. - Lab Data Result diagrams: 01/01/19 15:05 01/01/19 15:05 Lab Results 01/01/19 01/01/19 01/01/19 Range/Units 15:05 15:05 16:05 WBC 11.2 H (3.8-10.6) k/uL RBC 4.57 (4.30-5.90) m/uL Hgb 14.6 (13.0-17.5) gm/dL Hct 44.5 (39.0-53.0) % MCV 97.3 (80.0-100.0) fL MCH 32.0 (25.0-35.0) pg MCHC 32.9 (31.0-37.0) g/dL RDW 13.3 (11.5-15.5) % Plt Count 257 (150-450) k/uL Neutrophils % 70 % Lymphocytes % 21 % Monocytes % 5 % Eosinophils % 2 % Basophils % 0 % Neutrophils # 7.8 H (1.3-7.7) k/uL Lymphocytes # 2.4 (1.0-4.8) k/uL Monocytes # 0.6 (0-1.0) k/uL Eosinophils # 0.2 (0-0.7) k/uL Basophils # 0.0 (0-0.2) k/uL Sodium 142 (137-145) mmol/L Potassium 3.4 L (3.5-5.1) mmol/L Chloride 107 (98-107) mmol/L Carbon Dioxide 26 (22-30) mmol/L Anion Gap 9 mmol/L BUN 11 (9-20) mg/dL Creatinine 1.04 (0.66-1.25) mg/dL Est GFR (CKD-EPI)AfAm >90 (>60 ml/min/1.73 sqM) Est GFR (CKD-EPI)NonAf 83 (>60 ml/min/1.73 sqM) Glucose 89 (74-99) mg/dL Calcium 9.5 (8.4-10.2) mg/dL Total Bilirubin 0.7 (0.2-1.3) mg/dL AST 22 (17-59) U/L ALT 23 (21-72) U/L Alkaline Phosphatase 106 (38-126) U/L Total Protein 7.8 (6.3-8.2) g/dL Albumin 4.6 (3.5-5.0) g/dL Amylase 154 H (30-110) U/L Lipase 438 H (23-300) U/L Urine Color Yellow Urine Appearance Clear (Clear) Urine pH 5.5 (5.0-8.0) Ur Specific [place] 1.019 (1.001-1.035) Urine Protein 1+ H (Negative) Urine Glucose (UA) Negative (Negative) Urine Ketones 1+ H (Negative) Urine Blood Moderate H (Negative) Urine Nitrite Negative (Negative) Urine Bilirubin Negative (Negative) Urine Urobilinogen 2.0 (<2.0) mg/dL Ur Leukocyte Esterase Negative (Negative) Urine RBC 42 H (0-5) /hpf Urine WBC 11 H (0-5) /hpf Urine Mucus Many H (None) /hpf - Radiology Data Radiology results: report reviewed Possible left sided ureteral calculus. CT of 10/15/2018 show small calculus and left kidney that is possibly migrated. Disposition Clinical Impression: Ureteral stone Disposition: HOME SELF-CARE Condition: Good Instructions (If sedation given, give patient instructions): Renal Colic (ED) Additional Instructions: Patient is to rest, increase fluid intake. Take medications as prescribed. Follow-up with primary care doctor and urology. Prescriptions: Tamsulosin [Flomax] 0.4 mg PO DAILY #10 cap HYDROcodone/APAP 5-325MG [[place] 5-325] 1 tab PO Q6HR PRN #10 tab PRN Reason: Pain Ketorolac [Toradol] 10 mg PO Q6HR #15 tab Ondansetron [Zofran ODT] 4 mg PO Q8HR #12 tab Is patient prescribed a controlled substance at d/c from ED?: Yes If prescribed controlled substance>3 days was MAPS reviewed?: Prescribed <3 Days If opioid is for acute pain is fill amount 7 days or less?: Yes If Rx opioid, was Start Talking consent form obtained?: Yes Referrals: Yony Díaz MD [Primary Care Provider] - 1-2 days Greg Pratt MD [STAFF PHYSICIAN] - 1-2 days Time of Disposition: 17:39
[2019-01-01 16:42] LABS: Appearance,Urine Clear (Clear); Bilirubin,Urine Negative (Negative); Blood,Urine Moderate (Negative); Color,Urine Yellow; Glucose,Urine (UA) Negative (Negative); Ketones,Urine 1+ (Negative); Leukocyte Esterase,Urine Negative (Negative); Mucus,Urine Many /hpf; Nitrite,Urine Negative (Negative); PH, Urine 5.5 (5.0-8.0); Protein,Urine 1+ (Negative); RBC,Urine 42 /hpf (0-5); Specific Gravity,Urine 1.019 (1.001-1.035); WBC,Urine 11 /hpf (0-5)
[2019-01-01] MEDS ORDERED: TAMSULOSIN 0.4 MG CAP.ER.24H PO STA (16:43)
[2019-01-01] MEDS ORDERED: MORPHINE SULFATE 4 MG/ML SYRINGE IVP STA (17:37)
[2019-01-01 17:50] VITALS: BP 132/80; PULSE 18; TEMP 97.8
== END 2019-01-01 18:13 | disposition home or self-care (01) ==
LOC: EC 14:29
DX: N20.1 Calculus of ureter (principal); R74.8 Abnormal levels of other serum enzymes; J44.9 Chronic obstructive pulmonary disease, unspecified; I10 Essential (primary) hypertension; M19.90 Unspecified osteoarthritis, unspecified site; F32.9 Major depressive disorder, single episode, unspecified; F17.200 Nicotine dependence, unspecified, uncomplicated; Z79.82 Long term (current) use of aspirin; Z79.899 Other long term (current) drug therapy; Z88.0 Allergy status to penicillin
CPT/HCPCS: 36415; 80053; 82150; 83690; 85025; 81001; 87086; 74018; 99284; 96374; 96375 ×2; 96376; 96361 ×3; J2270; J2405; J1885

== ENCOUNTER 2019-02-01 15:03 | Emergency (ER) | payer OTHER ==
[2019-02-01] MEDS ORDERED: SODIUM CHLORIDE 0.9% 1,000 ML IV STA (17:21)
[2019-02-01] MEDS ORDERED: KETOROLAC 30 MG/ML 1 ML VIAL IVP STA (17:21)
--- NOTE | 2019-02-01 17:28 | ED ---
General Adult HPI - General Stated complaint: Kidney Stone Time Seen by Provider: 02/01/19 17:00 Source: RN notes reviewed - History of Present Illness Initial comments: 53-year-old male presents to the emergency department for chief complaint of left flank pain. Patient states that he has had this on and off for one month. States that he was diagnosed with a kidney stone a month ago. States he does not think that he has passed it. States he forgot to follow-up with urology but did follow up with his primary care provider. States he has noticed some mild hematuria over the past month. Denies any nausea or vomiting. Denies any abdominal pain. Denies any fevers or chills. Denies any dysuria. Patient has no other complaints at this time including shortness of breath, chest pain, abdominal pain, nausea or vomiting, headache, or visual changes. - Related Data Home Medications Medication Instructions Recorded Confirmed Gabapentin 800 mg PO BID 05/14/17 02/01/19 ALPRAZolam [Xanax] 0.5 mg PO BID PRN 09/23/18 02/01/19 ARIPiprazole [Abilify] 2 mg PO DAILY 09/23/18 02/01/19 DULoxetine HCL [Cymbalta] 60 mg PO DAILY 09/23/18 02/01/19 Topiramate [Topamax] 100 mg PO DAILY 09/23/18 02/01/19 FLUoxetine HCL [PROzac] 10 mg PO DAILY 01/01/19 02/01/19 Hydrocodone/Acetaminophen [[place] 1 tab PO Q6HR PRN 02/01/19 02/01/19 7.5-325] Previous Rx's Medication Instructions Recorded Tamsulosin [Flomax] 0.4 mg PO DAILY #10 cap 01/01/19 Tamsulosin [Flomax] 0.4 mg PO DAILY #20 cap 02/01/19 Allergies Allergy/AdvReac Type Severity Reaction Status Date / Time Penicillins Allergy Rash/Hives Verified 02/01/19 17:25 Review of Systems ROS Statement: Those systems with pertinent positive or pertinent negative responses have been documented in the HPI. ROS Other: All systems not noted in ROS Statement are negative. Past Medical History Past Medical History: Asthma, COPD, Hypertension, Memory Impairment, Osteoarthritis (OA) Additional Past Medical History / Comment(s): BEING EVALUATED FOR MEMORY LOSS HAS AN APPOINTMENT @ [facility]-NO RESULTS YET, Hand pain, has the starting of Emphysema. C-diff approx 03/31/18 with treatment. History of Any Multi-Drug Resistant Organisms: None Reported Past Surgical History: Ear Surgery, Orthopedic Surgery Additional Past Surgical History / Comment(s): Vasectomy, right shoulder surgery, carpal tunnel, LEFT KNEE SURGERY. PAIN PROCEDURES, left ear surgery Past Anesthesia/Blood Transfusion Reactions: No Reported Reaction Past Psychological History: Depression Smoking Status: Current every day smoker Past Alcohol Use History: None Reported Past Drug Use History: Marijuana - Past Family History Father Family Medical History: Cancer Additional Family Medical History / Comment(s): Father at age 77 from brain cancer Mother Additional Family Medical History / Comment(s): Mother at age 70 from heart failure. Sister(s) Additional Family Medical History / Comment(s): Patient has 2 sisters with no major medical problems. Brother(s) Additional Family Medical History / Comment(s): Patient has a total of 3 brothers. One has seizures possibly secondary to motor cycle accident Daughter(s) Additional Family Medical History / Comment(s): Patient has 2 daughters, one his gallbladder problems and wonders no major medical problems. Son(s) Additional Family Medical History / Comment(s): Patient has 2 sons and both smoke marijuana. He denies any other illicit drug use. General Exam General appearance: alert, in no apparent distress Head exam: Present: atraumatic, normocephalic, normal inspection Eye exam: Present: normal appearance, PERRL, EOMI. Absent: scleral icterus, conjunctival injection, periorbital swelling ENT exam: Present: normal exam, mucous membranes moist Neck exam: Present: normal inspection, full ROM. Absent: tenderness, meningismus, lymphadenopathy Respiratory exam: Present: normal lung sounds bilaterally. Absent: respiratory distress, wheezes, rales, rhonchi, stridor Cardiovascular Exam: Present: regular rate, normal rhythm, normal heart sounds. Absent: systolic murmur, diastolic murmur, rubs, gallop, clicks GI/Abdominal exam: Present: soft, normal bowel sounds. Absent: distended, tenderness, guarding, rebound, rigid Back exam: Present: CVA tenderness (L). Absent: CVA tenderness (R) Neurological exam: Present: alert, oriented X3, CN II-XII intact Psychiatric exam: Present: normal affect, normal mood Course Vital Signs 02/01/19 22:11 Pulse Rate 57 L Respiratory 16 Rate Blood Pressure 131/77 O2 Sat by Pulse 98 Oximetry Medical Decision Making - Medical Decision Making 53-year-old male presents for left flank pain times one month. States he was diagnosed with a kidney stone a month ago. States he forgot to follow-up with urology. On exam he does have some left CVA tenderness. No abdominal tenderness. Vitals are stable. CBC CMP unremarkable. Urinalysis does show significant red blood cells. CT does show mild left obstructive uropathy secondary to distal left ureteral 5 mm calcification. At this time patients pain was treated. Patient will be started on Flomax. Discussed follow-up with urologist as soon as possible. Discussed returning here if he has any worsening symptoms. - Lab Data Result diagrams: 02/01/19 18:01 02/01/19 18:01 Lab Results 02/01/19 02/01/19 02/01/19 Range/Units 18:01 18:01 18:25 WBC 9.2 (3.8-10.6) k/uL RBC 4.59 (4.30-5.90) m/uL Hgb 14.5 (13.0-17.5) gm/dL Hct 43.8 (39.0-53.0) % MCV 95.4 (80.0-100.0) fL MCH 31.5 (25.0-35.0) pg MCHC 33.0 (31.0-37.0) g/dL RDW 14.0 (11.5-15.5) % Plt Count 227 (150-450) k/uL Neutrophils % 62 % Lymphocytes % 27 % Monocytes % 4 % Eosinophils % 5 % Basophils % 1 % Neutrophils # 5.7 (1.3-7.7) k/uL Lymphocytes # 2.5 (1.0-4.8) k/uL Monocytes # 0.4 (0-1.0) k/uL Eosinophils # 0.5 (0-0.7) k/uL Basophils # 0.1 (0-0.2) k/uL Sodium 145 (137-145) mmol/L Potassium 3.8 (3.5-5.1) mmol/L Chloride 115 H (98-107) mmol/L Carbon Dioxide 23 (22-30) mmol/L Anion Gap 7 mmol/L BUN 14 (9-20) mg/dL Creatinine 1.12 (0.66-1.25) mg/dL Est GFR (CKD-EPI)AfAm 87 (>60 ml/min/1.73 sqM) Est GFR (CKD-EPI)NonAf 75 (>60 ml/min/1.73 sqM) Glucose 90 (74-99) mg/dL Calcium 9.3 (8.4-10.2) mg/dL Total Bilirubin 0.3 (0.2-1.3) mg/dL AST 19 (17-59) U/L ALT 13 L (21-72) U/L Alkaline Phosphatase 111 (38-126) U/L Total Protein 6.9 (6.3-8.2) g/dL Albumin 4.1 (3.5-5.0) g/dL Amylase 207 H (30-110) U/L Lipase 91 (23-300) U/L Urine Color Yellow Urine Appearance Clear (Clear) Urine pH 6.0 (5.0-8.0) Ur Specific [place] 1.025 (1.001-1.035) Urine Protein 1+ H (Negative) Urine Glucose (UA) Negative (Negative) Urine Ketones Negative (Negative) Urine Blood Large H (Negative) Urine Nitrite Negative (Negative) Urine Bilirubin Negative (Negative) Urine Urobilinogen 2.0 (<2.0) mg/dL Ur Leukocyte Esterase Negative (Negative) Urine RBC >182 H (0-5) /hpf Urine WBC 3 (0-5) /hpf Hyaline Casts 2 (0-2) /lpf Urine Mucus Moderate H (None) /hpf Disposition Clinical Impression: Hematuria, Kidney stone Disposition: HOME SELF-CARE Condition: Good Instructions (If sedation given, give patient instructions): Kidney Stones (E D), Hematuria (ED) Additional Instructions: Please follow up with primary care and urology in 1-2 days. Return here to the emergency department if you develop any worsening symptoms or have difficulty urinating. Prescriptions: Tamsulosin [Flomax] 0.4 mg PO DAILY #20 cap Is patient prescribed a controlled substance at d/c from ED?: No Referrals: Yony Díaz MD [Primary Care Provider] - 1-2 days Daryl Brunson MD [STAFF PHYSICIAN] - 1-2 days Time of Disposition: 21:48
[2019-02-01 18:11] LABS: Basophils # (A) 0.1 k/uL (0-0.2); Basophils % (A) 1 %; Eosinophils # (A) 0.5 k/uL (0-0.7); Eosinophils % (A) 5 %; HCT 43.8 % (39.0-53.0); HGB 14.5 gm/dL (13.0-17.5); Lymphocytes # (A) 2.5 k/uL (1.0-4.8); Lymphocytes % (A) 27 %; MCH 31.5 pg (25.0-35.0); MCV 95.4 fL (80.0-100.0); Mean Platelet Volume 7.6; Monocytes # (A) 0.4 k/uL (0-1.0); Monocytes % (A) 4 %; Neutrophils # (A) 5.7 k/uL (1.3-7.7); Neutrophils % (A) 62 %; Platelet Count 227 k/uL (150-450); RBC 4.59 m/uL (4.30-5.90); WBC 9.2 k/uL (3.8-10.6)
[2019-02-01 18:21] LABS: Albumin 4.1 g/dL (3.5-5.0); Calcium 9.3 mg/dL (8.4-10.2); Potassium 3.8 mmol/L (3.5-5.1); Total Bilirubin 0.3 mg/dL (0.2-1.3); Total Protein 6.9 g/dL (6.3-8.2)
[2019-02-01 18:59] LABS: Appearance,Urine Clear (Clear); Bilirubin,Urine Negative (Negative); Blood,Urine Large (Negative); Color,Urine Yellow; Glucose,Urine (UA) Negative (Negative); Hyaline Casts,Urine 2 /lpf (0-2); Ketones,Urine Negative (Negative); Leukocyte Esterase,Urine Negative (Negative); Mucus,Urine Moderate /hpf; Nitrite,Urine Negative (Negative); Protein,Urine 1+ (Negative); RBC,Urine >182 /hpf (0-5); Specific Gravity,Urine 1.025 (1.001-1.035); WBC,Urine 3 /hpf (0-5)
[2019-02-01] MEDS ORDERED: MORPHINE SULFATE 4 MG/ML SYRINGE IVP STA (19:45)
--- NOTE | 2019-02-01 20:04 | XR ---
EXAMINATION TYPE: XR KUB 2 views DATE OF EXAM: 02/01/2019 COMPARISON: 01/01/2019 HISTORY: Pain TECHNIQUE: 2 upright views FINDINGS: Visualized lung bases and pleural spaces are negative. Fluid distended but not dilated stomach noted. There is no dilation of bowel throughout the abdomen and pelvis. A few nonspecific gas fluid levels are noted in the right mid abdomen. There is no pneumatosis. There is no pneumoperitoneum. No acute skeletal or soft tissue findings are evident. IMPRESSION: Negative for bowel obstruction; nonspecific bowel gas radiographic pattern noted.
--- NOTE | 2019-02-01 21:49 | CT ---
EXAMINATION TYPE: CT abdomen pelvis wo con DATE OF EXAM: 02/01/2019 COMPARISON: 10/15/2018 HISTORY: left flank pain, hx of stones CT DLP: 398.4 mGycm Automated exposure control for dose reduction was used. TECHNIQUE: Helical acquisition of images was performed from the lung bases through the pelvis. FINDINGS: LUNG BASES: No significant abnormality is appreciated. LIVER/GB: No significant abnormality is appreciated. PANCREAS: No significant abnormality is seen. SPLEEN: No significant abnormality is seen. ADRENALS: No significant abnormality is seen. KIDNEYS, URETERS, AND BLADDER: There is engorgement of the left kidney with mild perirenal space yohannes atous reticulation. There is mild hydronephrosis and hydroureter with mild periureteral edematous ret iculation. The hydroureter extends down to the level of the sacroiliac joints where there is a 5 mm o bstructing calcification. This is located approximately 7 cm proximal to the left ureterovesical junc tion. 1 mm nonobstructing lower pole right renal calcification noted. No other KUB findings. FREE AIR: No free air is visualized RETROPERITONEAL ADENOPATHY: None visualized REPRODUCTIVE ORGANS: No significant abnormality is seen PELVIC ADENOPATHY: None visualized. OSSEOUS STRUCTURES: No significant abnormality is seen. BOWEL: No significant abnormality is seen. IMPRESSION: MILD-PLUS LEFT OBSTRUCTIVE UROPATHY, SECONDARY TO DISTAL LEFT URETERAL 5 MM CALCIFICATION.
[2019-02-01 22:13] VITALS: BP 131/77; PULSE 57; RESP 16
== END 2019-02-01 22:14 | disposition home or self-care (01) ==
LOC: EC 15:03
DX: N20.0 Calculus of kidney (principal); F32.9 Major depressive disorder, single episode, unspecified; F17.200 Nicotine dependence, unspecified, uncomplicated; Z88.0 Allergy status to penicillin; Z79.899 Other long term (current) drug therapy
CPT/HCPCS: 36415; 80053; 82150; 83690; 85025; 81001; 74018; 74176; 99284; 96374; 96375; 96361; J2270; J1885

== ENCOUNTER → 2021-11-13 | Outpatient (CLI) | payer MEDICARE, OTHER ==
[2021-11-13 10:33] VITALS: BP 118/79; PULSE 82; RESP 18; TEMP 97.4
--- NOTE | 2021-11-13 10:43 | P.CON ---
Consult Note - . Consult date: 11/13/21 Assessment/Plan:: HISTORY OF PRESENT ILLNESS: 56 yr old male with at side as a referral from Dr Pacheco presents today with neck pain due to neural foraminal encroachment and facet arthropathy for evaluation. Patient states his neck pain a 6 out of 10 in intensity, constant, pressure, cracking sensation in the lower aspects of his cervical spine with radiation of pain to the right shoulder and numbness to the right hand and thumb. Pain elevates as high as 9 out of 10 in intensity with extension, lateral flexion and lifting. Pain is relieved with medications, cannabis use, injections approximately 3 years ago, ice, heat, physical therapy in the past, daily home stretching regimen, repositioning and rest. Past Medical History: Asthma, COPD, Hypertension, Memory Impairment, Osteoarthritis (OA), MDD> Past Surgical History: Ear Surgery, Orthopedic Surgery, Vasectomy, R shoulder Surgery, Carpel Tunnel Surgery, L Knee Surgery. Social History: Daily Tobacco user, 2 ppd since age 14. Admits to Cannabis Use. Denies ETOH abuse. and lives with spouse. Family History: Father- Brain CA/ at age 77. Mother- CHF/ at age 70. Sister- Denies. Sister- Denies. Brother- Sz Disorder possibly due to MVA. Brother- Denies. Brother- Denies. Daughter- Gall Bladder issue. Daughter- Denies. Son- Denies. Son- Denies. All: PCN Meds: See list REVIEW OF ORGAN SYSTEMS: CONSTITUTIONAL: No fevers or chills. No recent weight loss. HEENT: No visual acuity loss, eye pain, difficulties with hearing. No nosebleeds. No difficulty swallowing. RESPIRATORY: Denies any troubles with breathing or dyspnea on exertion. CARDIOVASCULAR: Denies any chest pain, palpitations, or recent heart attacks. GASTROINTESTINAL: Denies fatty food intolerance. Has change in bowel habits and gas bloat. GENITOURINARY: Denies any blood in urine. Has increased urinary frequency. NEUROLOGICAL: + numbness and tingling along the distal extremities. No seizure disorders or headaches. MUSCULOSKELETAL: + back pain SKIN: No skin cancer. No rash. PSYCHIATRIC: Denies current depression or suicidal thoughts. ENDOCRINE: Denies current thyroid disorders. Denies any blood sugar glucose intolerance. HEME/LYMPHATIC: Denies any lumps and bumps around the neck. History of deep venous thrombosis. ALLERGY/IMMUNOLOGY: No immunoglobulin therapy. No immune deficiencies. BREAST: Denies current breast lumps, pain or nipple discharge. Physical Examinations : Constitutional : Cooperative , not in acute distress . HEENT: Neck supple. No Lymphadenopathy. Normal thyroid size . Eyes no ptosis , no icterus, no photophobia . Hearing intact. Normal oropharynx. No Thrush. Respiratory : Chest clear to auscultations bilaterally. No wheezing. No rhonchi. Cardiovascular : Regular rate and rhythm , S1 / S2. No S3 . No S4. Gastrointestinal : Abdomen soft. No tenderness. Bowel sounds x 4. No organomegaly . Genitourinary : Deferred. Neurologic : Cranial nerve II to XII intact. No focal neurological deficits. Psychiatric : alert & oriented x 3. Matching mood & appropriate affect. Judgment & insight intact. Lymphatic No Lymphadenopathy. Musculoskeletal : Cervical Spine Motor strength in the deltoid and biceps: Normal right side. Normal Left side Motor strength biceps and the wrist extensors: Normal right side . Normal left side Motor strength in the triceps muscle: Normal right side. Normal left side Deep tendon reflexes: Normal at the biceps. Normal at Brachioradialis. Normal at triceps Cervical facet loading test: positive bilaterally Jump reflex with palpation over BL C5-C6, C6-C7 Spurling test: positive bilaterally Neck distraction test: positive bilaterally Johny sign: positive bilaterally Lumbar spine Motor strength lower extremities ,thigh and legs 5/5 Right side , 5/5 Left side Deep tendon reflexes : Normal Knee Jerk. Normal Ankle Jerk Vertebral body tenderness over Lumbar facet Loading Test: positive Right / positive Left Range of motion of the lumbar spine Flexion 30 degrees, extension 10 degrees Straight Leg Raise test: Left/ Right positive at degree Mary Ann test: positive right / positive left. Severe tenderness over the Sacroiliac joint on the Right / Left sides Gaenslen test: positive bilaterally Seated flexion test: positive bilaterally. Imaging: MRI of the cervical spine from 10/26/21 reviewed. Assessment/ Plan : Recommendation of facet blocks of the bilateral medial branches C5-C6, C6-C7. May need a series of injections, up through RFA, to obtain optimal pain relief. Risks, benefits of procedure discussed and patient verbalized understanding. Admits to ASA 81 mg use. Directions on withholding aspirin prior to procedure discussed. Denies diabetes mellitus. All questions answered. I have spent greater than 50 minutes on patient care today. Dr Ruth was available by phone for the evaluation of this patient. The time was used to review the medical records including relevant urine studies and Prescription history (MAPs), review of the available imaging, evaluation and examination of the patient, coordination of care with the medical staff and if applicable referring physicians, as well as creation of the medical record PQRS Measure Charge Sheet Mode of Arrival: Ambulatory - Pain Location Neck Non-Pharmacological Interventions: Heat, Home Exercise, Ice, Inactivity, Physical Therapy, Position/Reposition, Stretching Pharmacological Interventions: PRN Medication PQRS Narrative: Smoking Status Current every day smoker Blood Pressure 118/79 Pain Intensity [Neck] 6 Scale Used Numeric (1 - 10) Hx Alcohol Use (MH) No Home Medications: Ambulatory Orders Gabapentin 800 mg PO BID 05/14/17 ALPRAZolam [Xanax] 0.5 mg PO BID PRN 09/23/18 ARIPiprazole [Abilify] 2 mg PO DAILY 09/23/18 DULoxetine HCL [Cymbalta] 60 mg PO DAILY 09/23/18 Topiramate [Topamax] 100 mg PO DAILY 09/23/18 FLUoxetine HCL [PROzac] 10 mg PO DAILY 01/01/19 Tamsulosin [Flomax] 0.4 mg PO DAILY #10 cap 01/01/19 Hydrocodone/Acetaminophen [[place] 7.5-325] 1 tab PO Q6HR PRN 02/01/19 Tamsulosin [Flomax] 0.4 mg PO DAILY #20 cap 02/01/19
== END | disposition home or self-care (01) ==
LOC: PNWHC3 09:06
PROVIDERS: ATTEND Physician Assistant Medical
DX: M54.2 Cervicalgia (principal)
CPT/HCPCS: 99202

== ENCOUNTER 2021-12-20 08:51 | Day surgery (SDC) | payer MEDICARE, OTHER ==
[2021-12-19 10:48] VITALS: BMI 24.2
[~2021-12-20 08:51] MED LIST changes: +LACTATED RINGERS 1,000 ML IV SCH; +LIDOCAINE 1% (10MG/ML) FOR IV START INTRADERMA PRN; -SODIUM CHLORIDE 0.9% 500 ML 500 ML IV ONE
[2021-12-20 09:09] VITALS: TEMP 97.5
[2021-12-20] MEDS ORDERED: fentaNYL (PF) 50 MCG/ML 2 ML AMP ONE (10:40)
[2021-12-20] MEDS ORDERED: MIDAZOLAM 2 MG/2 ML VIAL ONE (10:40)
[2021-12-20] MEDS ORDERED: DEXAMETHASONE SOD PHOSPHATE 10 MG/ML 1 ML VIAL ONE (10:40)
[2021-12-20] MEDS ORDERED: ROPIVACAINE 5MG/ML 20ML VIAL ONE (10:40)
[2021-12-20] MEDS ORDERED: IV FLUID CONTINUATION 1,000 ML IV ONE (11:13)
--- NOTE | 2021-12-20 11:13 | P.PCN ---
Date of Procedure: 12/20/21 Procedure(s) Performed: PREOPERATIVE DIAGNOSIS: 1-Cervical Spondylosis with Facet Arthropathy.without myelopathy. 2-cervical degenerative disc disease POSTOPERATIVE DIAGNOSIS: Same as preoperative diagnosis. PROCEDURES: Diagnostic bilateral C5 , C6 , C7 medial branch blocks, with fluo roscopic guidance (fluoroscopy images available in radiology department ) ( to target the facet joint at bilateral C5- 6 , C6-7 ) ANESTHESIA: Monitored anesthesia care as per anesthesia department . EBL: Minimal PROCEDURE INDICATION: The patient with neck pain secondary to cervical arthropathy unresponsive to more conservative treatments. PROCEDURE DESCRIPTION / TECHNIQUE: The patient was seen and identified in the preoperative area. Risks, benefits, complications, and alternatives were discussed with the patient, the patient agreed to proceed with the procedure and signed the consent. IV was started. Vital signs remained stable throughout the procedure. Patient was taken to the OR and time out was completed. The patient was placed in the Lateral position on the procedure table. A pillow was placed under the patients chest to increase the cervical interlaminar space. The cervical area was prepped and draped in the usual sterile fashion. Critical pause was taken. Vital signs were closely monitored during the procedure. Conscious sedation was used during the procedure to decrease patients anxiety. Using cross-table lateral fluoroscopy, the centroid of the trapezoid of right C5 , C6, C7 was identified, marked, and localized with 1% lidocaine 1 ml at each level for skin and Sub Q infiltrations . Subsequently, a 25 G 3 spinal needle was advanced guided by fluoroscopy to the centroid of the trapezoid of Right C5, C6, C7 . [place] tip position was confirmed at the centroid of the trapezoids of Right C5 ,C6, C7 with anteroposterior fluoroscopy. Subsequently, 1.5 ml of preservative-free Ropivacaine 0.5% mixed with Dexamethasone 10 mg and half ml of the mixture was injected after negative aspiration for blood and CSF. [place] was then removed intact the same procedure was repeated at the left C5, C6, C7 levels. COMPLICATIONS: No acute complications. DISPOSITION / PLANS: The patient was placed in a supine position and transferred to the recovery area in a stable condition for observation and was discharged from the recovery room after meeting discharge criteria. Home discharge instructions given to the patient by the staff. The patient was reexamined prior to discharge. The patient will schedule a follow up in the clinic in 2-4 weeks.
[2021-12-20 11:29] VITALS: BP 149/90; PULSE 61; RESP 16
--- NOTE | 2021-12-20 12:50 | FL ---
Fluoroscopy INDICATION: Pain FINDINGS: Fluoroscopy time: 21 seconds. Images obtained: 2. IMPRESSIONS: 1. Documentation of fluoroscopy.
== END 2021-12-20 11:45 | disposition home or self-care (01) ==
LOC: ORPAIN 08:51
PROVIDERS: ATTEND Specialist
DX: M47.812 Spondylosis without myelopathy or radiculopathy, cervical region (principal)
CPT/HCPCS: 64490; 64491; J2250; J1100; J3010; J2795

== ENCOUNTER → 2022-01-09 | Outpatient (CLI) | payer MEDICARE, OTHER ==
[2022-01-09 09:48] VITALS: BP 127/78; PULSE 71; RESP 18
--- NOTE | 2022-01-09 09:52 | P.PN ---
Subjective Progress Note Date: 01/09/22 Principal diagnosis: A 56 yr old male with at side with a history of severe and chronic neck pain secondary to cervical degenerative disc diseases and spondylosis with facet arthropathy presents today for evaluation status post facet blocks medial branches bilateral C5 to C6, C6-C7. He states he experienced 90% pain relief for 3 days status post procedure. Pain level is currently at 8 out of 10 in intensity, constant, dull, achy pain in the lower aspects of his cervical spine with radiation of stabbing pain to the back of his head and the upper extremities, right greater than left. Pain is provoked by extension. Pain is alleviated with medications, injections, ice, physical therapy which worsened pain, chiropractic treatments in the past which provided no relief, home stretching regimen and rest. Interventional pain procedures completed include FB/MB BL C5-C6, C6-C7 #1 Patient is currently on Motrin OTC, Tylenol OTC Patient denies any side effects of the medication(s), denies excessive drowsiness or sleepiness, denies suicidal ideation and reports that the current pain medication is helping to control the pain and improve activities of daily living. Patient denies any motor or sensory deficits. Patient denies any fever or night sweats, denies any change in the bowel movements or urination. Physical Examination: -Constitutional: Cooperative. Not in acute distress . -HEENT: Neck is supple. No lymphadenopathy. No thyromegaly. Normal thyroid size. Eyes: No ptosis , no icterus, no photophobia. ENT: No auditory deficits. Normal oropharynx. No Thrush. - Respiratory: Chest clear to auscultations bilaterally. No wheezing. No rhonchi. - Cardiovascular: Regular rate and rhythm. S1 / S2 , no S3 , no S4. - Gastrointestinal: Abdomen soft no tenderness. Bowel sounds positive in all four quadrants. No organomegaly. - Genitourinary: Deferred. - Neurologic: Cranial nerve II to XII intact. No focal neurological deficits. - Psychatric: Alert & oriented x 3. Matching mood & appropriate affect. [place] gment and insight intact. - Lymphatic: No Lymphadenopathy. - Musculoskeletal: Cervical spine: Muscle bulk/ tone/ strength in the bilateral upper extremities normal. Facet loading test cervical area positive over BL C5-C6, C6-C7 Lumbar spine: Motor bulk/ tone/ strength lower extremities , thigh and legs : 5/5 Deep tendon reflexes : Normal Knee Jerk. Normal Ankle Jerk . Vertebral body tenderness to palpation over Lumbar Facet Loading Test positive Straight Leg Raise: positive at 30 degrees right side/ left side Gaenslen's Test positive Sacral spine : Severe tenderness over the Sacroiliac joint: right side / left side Range of motion: Flexion of the lumbar spine <60 degrees Range of motion: Extension of the lumbar spine <20 degrees Gaenslen's Test positive Mary Ann test: positive right side / left side Assessment and plan: Chronic neck pain secondary to cervical degenerative disc disease , spondylosis with facet arthropathy without myelopathy Medication of facet blocks of the medial branches bilateral C5-C6, C6-C7 #2. Risks, benefits of procedure discussed and patient verbalized understanding. Denies anticoagulant use or medical history of diabetes. All patient questions answered MAPS reviewed and it was appropriate. I have spent 31 minutes on patient care today. Dr Ruth was available by phone for the evaluation of this patient. The time was used to review the medical records including relevant urine studies and Prescription history (MAPs), review of the available imaging, evaluation and examination of the patient, coordination of care with the medical staff and if applicable referring physicians, as well as creation of the medical record Objective - Vital Signs Vital signs: Vital Signs Temp Pulse 71 01/09/22 09:41 Resp 18 01/09/22 09:41 BP 127/78 01/09/22 09:41 Pulse Ox 95 01/09/22 09:41 Intake & Output 01/08/22 01/09/22 01/09/22 18:59 06:59 18:59 Weight 72.575 kg PQRS Measure Charge Sheet Mode of Arrival: Ambulatory - Pain Location Neck Non-Pharmacological Interventions: Chiropractic Treatment, Home Exercise, Ice, Inactivity, Physical Therapy, Position/Reposition, Stretching Pharmacological Interventions: Block, PRN Medication PQRS Narrative: Smoking Status Current every day smoker Blood Pressure 127/78 Pain Intensity [Neck] 8 Scale Used Numeric (1 - 10) Hx Alcohol Use (MH) No Home Medications: Ambulatory Orders ALPRAZolam [Xanax] 0.5 mg PO BID PRN 09/23/18 FLUoxetine HCL [PROzac] 40 mg PO DAILY 01/01/19 Aspirin 81 mg PO DAILY 12/19/21 Cholesterol Med 1 tab PO DAILY 12/19/21
== END ==
LOC: PNWHC3 09:06
PROVIDERS: ATTEND Specialist
DX: M50.30 Other cervical disc degeneration, unspecified cervical region (principal); M47.812 Spondylosis without myelopathy or radiculopathy, cervical region; G89.29 Other chronic pain; F17.200 Nicotine dependence, unspecified, uncomplicated; Z88.0 Allergy status to penicillin
CPT/HCPCS: 99211

== ENCOUNTER 2022-02-21 09:54 | Day surgery (SDC) | payer MEDICARE, OTHER ==
[2022-02-21] MEDS ORDERED: LIDOCAINE 1% (10MG/ML) FOR IV START INTRADERMA PRN (10:05)
[2022-02-21] MEDS ORDERED: LACTATED RINGERS 1,000 ML IV SCH (10:05)
[2022-02-21 10:15] VITALS: TEMP 97.4
[2022-02-21] MEDS ORDERED: ROPIVACAINE 5MG/ML 20ML VIAL ONE (10:24)
[2022-02-21] MEDS ORDERED: MIDAZOLAM 2 MG/2 ML VIAL ONE (10:24)
[2022-02-21] MEDS ORDERED: methylPREDNISolone ACETATE 40 MG/ML 1 ML VIAL ONE (10:24)
[2022-02-21] MEDS ORDERED: fentaNYL (PF) 50 MCG/ML 2 ML AMP ONE (10:24)
--- NOTE | 2022-02-21 10:57 | P.PCN ---
Date of Procedure: 02/21/22 Procedure(s) Performed: PREOPERATIVE DIAGNOSIS: 1-Cervical Spondylosis with Facet Arthropathy.without myelopathy. 2-cervical degenerative disc disease POSTOPERATIVE DIAGNOSIS: Same as preoperative diagnosis. PROCEDURES: Diagnostic bilateral C5 , C6 , C7 medial branch blocks, with fluo roscopic guidance (fluoroscopy images available in radiology department ) ( to target the facet joint at bilateral C5- 6 , C6-7 )# 2nd ANESTHESIA: Monitored anesthesia care as per anesthesia department . EBL: Minimal PROCEDURE INDICATION: The patient with neck pain secondary to cervical arthropathy unresponsive to more conservative treatments. PROCEDURE DESCRIPTION / TECHNIQUE: The patient was seen and identified in the preoperative area. Risks, benefits, complications, and alternatives were discussed with the patient, the patient agreed to proceed with the procedure and signed the consent. IV was started. Vital signs remained stable throughout the procedure. Patient was taken to the OR and time out was completed. The patient was placed in the Lateral position on the procedure table. A pillow was placed under the patients chest to increase the cervical interlaminar space. The cervical area was prepped and draped in the usual sterile fashion. Critical pause was taken. Vital signs were closely monitored during the procedure. Conscious sedation was used during the procedure to decrease patients anxiety. Using cross-table lateral fluoroscopy, the centroid of the trapezoid of right C5 , C6, C7 was identified, marked, and localized with 1% lidocaine 1 ml at each level for skin and Sub Q infiltrations . Subsequently, a 25 G 3 spinal needle was advanced guided by fluoroscopy to the centroid of the trapezoid of Right C5, C6, C7 . [place] tip position was confirmed at the centroid of the trapezoids of Right C5 ,C6, C7 with anteroposterior fluoroscopy. Subsequently, 1.5 ml of preservative-free Ropivacaine 0.5% mixed with Depomedrol 20 mg and half ml of the mixture was injected after negative aspiration for blood and CSF. [place] was then removed intact the same procedure was repeated at the left C5, C6, C7 levels. COMPLICATIONS: No acute complications. DISPOSITION / PLANS: The patient was placed in a supine position and transferred to the recovery area in a stable condition for observation and was discharged from the recovery room after meeting discharge criteria. Home discharge instructions given to the patient by the staff. The patient was reexamined prior to discharge. The patient will schedule a follow up in the clinic in 2-4 weeks.
[2022-02-21] MEDS ORDERED: IV FLUID CONTINUATION 1,000 ML IV ONE (11:01)
[2022-02-21 11:06] VITALS: RESP 16
--- NOTE | 2022-02-21 11:07 | FL ---
Fluoroscopy History: BILAT CERVICAL FACET BLOCK 1:05 FLUORO
[2022-02-21 11:25] VITALS: BP 129/81; PULSE 70
== END 2022-02-21 11:38 | disposition home or self-care (01) ==
LOC: ORPAIN 09:54
PROVIDERS: ATTEND Specialist
DX: M47.812 Spondylosis without myelopathy or radiculopathy, cervical region (principal); M50.323 Other cervical disc degeneration at C6-C7 level; Z88.0 Allergy status to penicillin; F32.A Depression, unspecified; Z79.899 Other long term (current) drug therapy; F12.90 Cannabis use, unspecified, uncomplicated; Z79.82 Long term (current) use of aspirin; F17.200 Nicotine dependence, unspecified, uncomplicated
CPT/HCPCS: 64490; 64491; J2250; J1030; J3010; J2795

== ENCOUNTER → 2022-03-12 | Outpatient (CLI) | payer MEDICARE, OTHER ==
[2022-03-12 10:10] VITALS: BP 135/86; PULSE 76; RESP 18; TEMP 98
--- NOTE | 2022-03-12 10:31 | P.PAINPG ---
PQRS Measure Charge Sheet Comment: A 56 yr old male with a history of severe and chronic low back pain secondary to lumbar degenerative disc diseases and lumbar spondylosis with facet arthropathy presents today for evaluation for BL MBB C5-C6, C6-C7 #2. He states he experienced 80% pain relief for 4hr s/p procedure. Pain level is currently at 6/10 in intensity, constant, dull/ achy in the lower aspects of his cervical spine with sharp/ shooting pain towards the upper back parts of his shoulders. Pain is provoked by hyperextension. Pain is alleviated with medications ([place], anti spasmotics), heat, physical therapy in 2019, injections, laying supine, repositioning and rest. Interventional pain procedures completed include BL MBB C5-C6, C6- C7 2 Patient denies any side effects of the medication(s), denies excessive drowsiness or sleepiness, denies suicidal ideation and reports that the current pain medication is helping to control the pain and improve activities of daily living. Patient denies any motor or sensory deficits. Patient denies any fever or night sweats, denies any change in the bowel movements or urination. Physical Examination: -Constitutional: Cooperative. Not in acute distress . - Neurologic: Cranial nerve II to XII intact. No focal neurological deficits. - Psychatric: Alert & oriented x 3. Matching mood & appropriate affect. Judgment and insight intact. - Musculoskeletal: Cervical spine: Muscle bulk/ tone/ strength in the bilateral upper extremities normal Vertebral body tenderness to palpation Spurling test positive Distraction test positive Facet loading test positive over BL C5-C6, C6-C7 w jump reflex Thoracic spine Muscle bulk / tone/ strength in the bilateral paraspinal muscles normal Vertebral body tender to palpation over Facet loading test positive over Lumbar spine: Motor bulk/ tone/ strength lower extremities , thigh and legs : 5/5 Deep tendon reflexes : Normal Knee Jerk. Normal Ankle Jerk . Vertebral body tenderness to palpation over Lumbar Facet Loading Test positive Straight Leg Raise: positive at 30 degrees right side/ left side Gaenslen's Test positive Sacral spine : Severe tenderness over the Sacroiliac joint: right side / left side Range of motion: Flexion of the lumbar spine <60 degrees Range of motion: Extension of the lumbar spine <20 degrees Gaenslen's Test positive Yony's Test positive Mary Ann test: positive right side / left side Thigh Thrust Test Sacral Thrust Test Assessment and plan: Chronic low back pain secondary to lumbar degenerative disc disease , [place] mbar spondylosis with facet arthropathy without myelopathy Recommendation of BL RFA C5-C6, C6-C7. PT exhibited sufficient and satisfactory pain relief with the prior MBBs. Risks, benefits of procedure discussed and pt verbalized understanding. Denies anticoagulant use or medical history of diabetes. Protocol for discontinuation/ continuation of medications krystal procedure discussed. All patient questions answered MAPS reviewed and it was appropriate. I have spent less than 30 minutes on patient care today. Dr Ruth was available by phone for the evaluation of this patient. The time was used to review the medical records including relevant urine studies and Prescription history (MAPs), review of the available imaging, evaluation and examination of the patient, coordination of care with the medical staff and if applicable referring physicians, as well as creation of the medical record PQRS Narrative: Smoking Status Current every day smoker Hx Alcohol Use (MH) No Home Medications: Ambulatory Orders ALPRAZolam [Xanax] 0.5 mg PO BID PRN 09/23/18 FLUoxetine HCL [PROzac] 40 mg PO DAILY 01/01/19 Aspirin 81 mg PO DAILY 12/19/21 Cholesterol Med 1 tab PO DAILY 12/19/21 Cyclobenzaprine [Flexeril] 10 mg PO PRN 02/21/22 HYDROcodone/APAP 5-325MG [[place] 5-325] 5 - 325 mg PO PRN 02/21/22 Controlled Substance Measures - Controlled Substance Measures Is patient prescribed a controlled substance at discharge?: No
== END ==
LOC: PNWHC3 09:48
PROVIDERS: ATTEND Specialist
DX: M51.36 Other intervertebral disc degeneration, lumbar region (principal); M47.816 Spondylosis without myelopathy or radiculopathy, lumbar region; G89.29 Other chronic pain; F17.200 Nicotine dependence, unspecified, uncomplicated; Z88.0 Allergy status to penicillin
CPT/HCPCS: 99211

== ENCOUNTER 2022-04-11 08:43 | Day surgery (SDC) | payer MEDICARE, OTHER ==
[~2022-04-11 08:43] MED LIST changes: -LACTATED RINGERS 1,000 ML IV SCH
[2022-04-11 09:10] VITALS: RESP 16; TEMP 97.2
[2022-04-11] MEDS: LACTATED RINGERS 1,000 ML IV SCH ×2 (09:21→09:32)
[2022-04-11] MEDS ORDERED: fentaNYL (PF) 50 MCG/ML 2 ML AMP ONE (09:34)
[2022-04-11] MEDS ORDERED: MIDAZOLAM 2 MG/2 ML VIAL ONE (09:34)
[2022-04-11] MEDS ORDERED: ROPIVACAINE 5MG/ML 20ML VIAL ONE (09:34)
[2022-04-11] MEDS ORDERED: methylPREDNISolone ACETATE 40 MG/ML 1 ML VIAL ONE (09:34)
--- NOTE | 2022-04-11 10:08 | P.PCN ---
Date of Procedure: 04/11/22 Procedure(s) Performed: PREOPERATIVE DIAGNOSIS: Cervical spondylosis with Facet Arthropathy without myelopathy. POSTOPERATIVE DIAGNOSIS: Cervical spondylosis with Facet Arthropathy without myelopathy. PROCEDURES: Radiofrequency thermocoagulation, Right C5, C6, C7 medial branch with Fluroscopy [place](fluoroscopy was available in Radiology department ) (to denervate the facet joint at Right C5- 6 ,C6-7 ) ANESTHESIA: Monitored anesthesia care as per anesthesia departmen. EBL: Minimal PROCEDURE INDICATION: The patient with neck pain secondary to cervical arthropathy who had more than 50% relief of her pain with previous diagnostic cervical medial branch block. PROCEDURE DESCRIPTION / TECHNIQUE: The patient was seen and identified in the preoperative area. Risks, benefits, complications, and alternatives were discussed with the patient, the patient agreed to proceed with the procedure and signed the consent. IV was started. Vital signs remained stable throughout the procedure. Patient was taken to the OR and time out was completed. The patient was placed in the Lateral position on the procedure table ( right side up ). The cervical area was prepped and draped in the usual sterile fashion. Critical pause was taken. Vital signs were closely monitored during the procedure. Conscious sedation was used during the procedure to decrease patients anxiety. Using cross-table lateral fluoroscopy, the centroid of the trapezoid of Right C5, C6 , C7 were identified, marked, and localized with 1% lidocaine. Subsequently, a 20 [id number] radiofrequency cannula with a 10-mm active tip was advanced guided by fluoroscopy to the centroid of the trapezoid of Right C5, C6, C7 . Needle tip position was confirmed at the centroid of the trapezoids of Right C5, C6 , C7 with anteroposterior fluoroscopy. Each site then underwent sensory testing at 50 Hz and 0 to 1 volt and motor testing at 2 Hz and 0 to 3 volt with local stimulation, but no radicular symptoms down the arm. Thereafter each sites underwent radiofrequency thermocoagulation at 80 degrees celsius for 90 seconds after injecting 0.5 ml of PF Ropivacaine 0.5 %. After thermocoagulation, 1 ml of the block solution containing Depo-Medrol 40 mg and 5 mL of preservative-free normal saline was injected at the Right C5, C6 , C7 levels after negative aspiration of CSF and blood and with no paresthesias. Cannulas were retracted while injecting lidocaine 1% until the needle is out. Skin was cleansed and bandages were applied. COMPLICATIONS: No acute complications. DISPOSITION / PLANS: The patient was placed in a supine position and transferred to the recovery area in a stable condition for observation and was discharged from the recovery room after meeting discharge criteria. Home discharge instructions given to the patient by the staff. The patient was reexamined prior to discharge. The patient will schedule a follow up in the clinic in 2-4 weeks.
--- NOTE | 2022-04-11 10:16 | FL ---
Fluoroscopy History: RADIO FREQ RT CERVICAL 37 sec fl time used rf cervical
[2022-04-11 10:31] VITALS: BP 117/80; PULSE 67
== END 2022-04-11 10:40 | disposition home or self-care (01) ==
LOC: ORPAIN 08:43
PROVIDERS: ATTEND Specialist
DX: M47.812 Spondylosis without myelopathy or radiculopathy, cervical region (principal); I10 Essential (primary) hypertension; J44.9 Chronic obstructive pulmonary disease, unspecified; Z87.891 Personal history of nicotine dependence; G35 Multiple sclerosis; Z88.0 Allergy status to penicillin; Z79.899 Other long term (current) drug therapy; Z79.82 Long term (current) use of aspirin
CPT/HCPCS: 64633; 64634; J2250; J1030; J3010; J2795

== ENCOUNTER 2022-05-02 11:28 | Day surgery (SDC) | payer MEDICARE, OTHER ==
[2022-05-02 11:50] VITALS: RESP 16; TEMP 97.7
[2022-05-02] MEDS ORDERED: LACTATED RINGERS 1,000 ML IV ONE (11:50)
[2022-05-02] MEDS ORDERED: MIDAZOLAM 2 MG/2 ML VIAL ONE (12:22)
[2022-05-02] MEDS ORDERED: methylPREDNISolone ACETATE 40 MG/ML 1 ML VIAL ONE (12:22)
[2022-05-02] MEDS ORDERED: ROPIVACAINE 5 MG/ML 20 ML AMPULE ONE (12:22)
[2022-05-02] MEDS ORDERED: fentaNYL (PF) 50 MCG/ML 2 ML AMP ONE (12:22)
--- NOTE | 2022-05-02 12:50 | P.PCN ---
Date of Procedure: 05/02/22 Procedure(s) Performed: PREOPERATIVE DIAGNOSIS: Cervical spondylosis with Facet Arthropathy without myelopathy. POSTOPERATIVE DIAGNOSIS: Cervical spondylosis with Facet Arthropathy without myelopathy. PROCEDURES: Radiofrequency thermocoagulation, left C5, C6, C7 medial branch with Fluroscopy [place](fluoroscopy was available in Radiology department ) (to denervate the facet joint at Left C5- 6 ,C6-7 ) ANESTHESIA: Monitored anesthesia care as per anesthesia departmen. EBL: Minimal PROCEDURE INDICATION: The patient with neck pain secondary to cervical arthropathy who had more than 50% relief of her pain with previous diagnostic cervical medial branch block. PROCEDURE DESCRIPTION / TECHNIQUE: The patient was seen and identified in the preoperative area. Risks, benefits, complications, and alternatives were discussed with the patient, the patient agreed to proceed with the procedure and signed the consent. IV was started. Vital signs remained stable throughout the procedure. Patient was taken to the OR and time out was completed. The patient was placed in the Lateral position on the procedure table ( Left side up ). The cervical area was prepped and draped in the usual sterile fashion. Critical pause was taken. Vital signs were closely monitored during the procedure. Conscious sedation was used during the procedure to decrease patients anxiety. Using cross-table lateral fluoroscopy, the centroid of the trapezoid of Left C5, C6 , C7 were identified, marked, and localized with 1% lidocaine. Subsequently, a 20 [id number] radiofrequency cannula with a 10-mm active tip was advanced guided by fluoroscopy to the centroid of the trapezoid of left C5, C6, C7 . Needle tip position was confirmed at the centroid of the trapezoids of Left C5, C6 , C7 with anteroposterior fluoroscopy. Each site then underwent sensory testing at 50 Hz and 0 to 1 volt and motor testing at 2 Hz and 0 to 3 volt with local stimulation, but no radicular symptoms down the arm. Thereafter each sites underwent radiofrequency thermocoagulation at 80 degrees celsius for 90 seconds after injecting 0.5 ml of PF Ropivacaine 0.5 %. After thermocoagulation, 1 ml of the block solution containing Depo-Medrol 40 mg and 5 mL of preservative-free normal saline was injected at the left C5, C6 , C7 levels after negative aspiration of CSF and blood and with no paresthesias. Cannulas were retracted while injecting Ropivacine 0.5 % until the needle is out. Skin was cleansed and bandages were applied. COMPLICATIONS: No acute complications. DISPOSITION / PLANS: The patient was placed in a supine position and transferred to the recovery area in a stable condition for observation and was discharged from the recovery room after meeting discharge criteria. Home discharge instructions given to the patient by the staff. The patient was reexamined prior to discharge. The patient will schedule a follow up in the clinic in 2-4 weeks.
[2022-05-02] MEDS ORDERED: IV FLUID CONTINUATION 300 ML IV ONE (12:54)
[2022-05-02 13:14] VITALS: BP 139/83; PULSE 69
--- NOTE | 2022-05-02 13:44 | FL ---
Fluoroscopy INDICATION: Pain FINDINGS: Fluoroscopy time: 23 seconds. Images obtained: 4. IMPRESSIONS: 1. Documentation of fluoroscopy.
== END 2022-05-02 12:29 | disposition home or self-care (01) ==
LOC: ORPAIN 11:28
PROVIDERS: ATTEND Specialist
DX: M47.812 Spondylosis without myelopathy or radiculopathy, cervical region (principal); M54.2 Cervicalgia; F41.9 Anxiety disorder, unspecified; I10 Essential (primary) hypertension; E78.5 Hyperlipidemia, unspecified; J45.909 Unspecified asthma, uncomplicated; M19.90 Unspecified osteoarthritis, unspecified site; K21.9 Gastro-esophageal reflux disease without esophagitis; J44.9 Chronic obstructive pulmonary disease, unspecified; Z88.0 Allergy status to penicillin; Z87.891 Personal history of nicotine dependence; Z98.890 Other specified postprocedural states; Z47.89 Encounter for other orthopedic aftercare; Z79.899 Other long term (current) drug therapy
CPT/HCPCS: 64633; 64634; J2250; J1030; J3010; J2795

== ENCOUNTER → 2022-06-04 | Outpatient (CLI) | payer MEDICARE, OTHER ==
[2022-06-04 08:56] VITALS: BP 131/88; PULSE 90; RESP 16; TEMP 97.9
--- NOTE | 2022-06-04 14:09 | P.PAINPG ---
Objective - Vital Signs Vital signs: Vital Signs Temp 97.9 F 06/04/22 08:52 Pulse 90 06/04/22 08:52 Resp 16 06/04/22 08:52 BP 131/88 06/04/22 08:52 Pulse Ox 97 06/04/22 08:52 FiO2 Intake & Output 06/03/22 06/04/22 06/04/22 18:59 06:59 18:59 Weight 72.575 kg PQRS Measure Charge Sheet Mode of Arrival: Ambulatory Comment: A 56 yr old male with a history of severe and chronicneck pain secondary to cervical degenerative disc diseases and spondylosis with facet arthropathy without myelopathy presents today for evaluation s/p L RFA C5-C6, C6-C7. Pt stated he received 80% pain relief s/p procedure. Pain level is currently at 3/10 in intensity, constant, localized in L lower cervical spine, dull in chracter w shooting towards the L shoulder. Pain is provoked as high as 8/10 by mvmt. Pain is alleviated with PT in the past, home exercise regimen as tolerated, injections, alternating heat & ice, repositioning and rest. Interventional pain procedures completed include L RFA C5=C6, C6-C7 Patient is currently on Flexeril fr Dr Pacheco Patient denies any side effects of the medication(s), denies excessive drowsiness or sleepiness, denies suicidal ideation and reports that the current pain medication is helping to control the pain and improve activities of daily living. Patient denies any motor or sensory deficits. Patient denies any fever or night sweats, denies any change in the bowel movements or urination. Physical Examination: -Constitutional: Cooperative. Not in acute distress . - Neurologic: Cranial nerve II to XII intact. No focal neurological deficits. - Psychatric: Alert & oriented x 3. Matching mood & appropriate affect. Judgment and insight intact. - Musculoskeletal: Cervical spine: Muscle bulk/ tone/ strength in the bilateral upper extremities normal Vertebral body tenderness to palpation over Spurling test positive Distraction test positive Facet loading test positive Thoracic spine Muscle bulk / tone/ strength in the bilateral paraspinal muscles normal Vertebral body tender to palpation over Facet loading test positive Lumbar spine: Motor bulk/ tone/ strength lower extremities , thigh and legs : 5/5 Deep tendon reflexes : Normal Knee Jerk. Normal Ankle Jerk . Vertebral body tenderness to palpation over Lumbar Facet Loading Test positive Straight Leg Raise: positive at 30 degrees right side/ left side Gaenslen's Test positive Sacral spine : Severe tenderness over the Sacroiliac joint: right side / left side Range of motion: Flexion of the lumbar spine <60 degrees Range of motion: Extension of the lumbar spine <20 degrees Gaenslen's Test positive Yony's Test positive Mary Ann test: positive right side / left side Thigh Thrust Test Sacral Thrust Test Assessment and plan: Chronic neck pain secondary to cervical degenerative disc disease , spondylosis with facet arthropathy without myelopathy Pt exhibited sufficient and substantial pain relief w prior procedure. He will manage residual pain w home pain mgmt modifying factors. He may return to our clinic on an as needed basis. Risks, benefits of procedure discussed and pt verbalized understanding. Denies anticoagulant use or medical history of diabetes. All patient questions answered I have spent less than 30 minutes on patient care today. Dr Ruth was available by phone for the evaluation of this patient. The time was used to review the medical records including relevant urine studies and Prescription history (MAPs), review of the available imaging, evaluation and examination of the patient, coordination of care with the medical staff and if applicable referring physicians, as well as creation of the medical record - Pain Location Left Neck Non-Pharmacological Interventions: Heat, Home Exercise, Ice, Inactivity, Physical Therapy, Position/Reposition, Stretching Pharmacological Interventions: Block, PRN Medication PQRS Narrative: Smoking Status Current every day smoker Blood Pressure 131/88 Pain Intensity [Left Neck] 3 Scale Used Numeric (1 - 10) Hx Alcohol Use (MH) No Home Medications: Ambulatory Orders ALPRAZolam [Xanax] 0.5 mg PO BID PRN 09/23/18 FLUoxetine HCL [PROzac] 20 mg PO DAILY 01/01/19 Aspirin 81 mg PO DAILY 12/19/21 Cyclobenzaprine [Flexeril] 10 mg PO TID 02/21/22 HYDROcodone/APAP 5-325MG [[place] 5-325] 1 tab PO TID PRN 02/21/22 Atorvastatin [Lipitor] 40 mg PO HS 04/09/22 Ibuprofen [Motrin] 800 mg PO Q8H PRN 04/09/22 Controlled Substance Measures - Controlled Substance Measures Is patient prescribed a controlled substance at discharge?: No
== END | disposition home or self-care (01) ==
LOC: PNWHC3 08:38
PROVIDERS: ATTEND Specialist
DX: M50.323 Other cervical disc degeneration at C6-C7 level (principal); M47.892 Other spondylosis, cervical region; M46.92 Unspecified inflammatory spondylopathy, cervical region
CPT/HCPCS: 99211

== ENCOUNTER 2024-04-26 07:02 | Day surgery (SDC) | payer MEDICARE, OTHER ==
[2024-04-26] MEDS: IV FLUID CONTINUATION 1,000 ML IV ONE (07:15)
[2024-04-26 07:27] VITALS: RESP 16; TEMP 97.3
[2024-04-26] MEDS: LACTATED RINGERS 1,000 ML IV SCH (07:35)
[2024-04-26] MEDS ORDERED: LIDOCAINE 1% INJ 10MG/ML (20 ML MDV) ONE (07:53)
[2024-04-26] MEDS ORDERED: PROPOFOL 10 MG/ML 20 ML VIAL IV ONE (07:53)
--- NOTE | 2024-04-26 08:16 | P.PCN ---
Date of Procedure: 04/26/24 Procedure(s) Performed: Brief history: Patient is a pleasant 58-year-old white male scheduled for an elective upper endoscopy as well as colonoscopy as a part of evaluation of nausea history of GERD and left side abdominal pain for the last 3 months duration. Procedure performed: Esophagogastroduodenoscopy with biopsy Colonoscopy with snare polypectomy. Preoperative diagnosis: GERD Left-sided abdominal pain Anesthesia: MAC Procedure: After informed consent was obtained from the patient was brought into the endoscopy unit and IV sedation was administered by anesthesia under continuous monitoring. Initially upper endoscopy was done. The Olympus GF 160 video endoscope was inserted inserted into the mouth and esophagus intubated without any difficulty and was gradually advanced into the stomach and duodenum and carefully examined. The bulb and second part of the duodenum appeared normal. The scope was then withdrawn into the stomach adequately insufflated with air and upon careful examination the antrum and mild diffuse gastritis and biopsies were done from this area. Mucosa body, cardia and fundus appeared normal. The scope was then withdrawn into the esophagus. The GE junction was located at 40 cm to the incisors. It appeared regular with no erythema erosions or ulcerations. Rest of the esophagus appeared normal. Patient tolerated the procedure well. At this time the patient continued to remain sedation. Initial digital rectal examination was normal. Olympus CF 160 video colonoscope was then inserted into the rectum and gradually advanced to the cecum without any difficulty. Careful examination was performed as the scope was gradually being withdrawn. The prep was excellent. The cecum, ascending colon appeared normal. The hepatic flexure there was a 1 cm polyp removed by snare polypectomy. In the transverse colon there was a 1 cm and 1.5 cm polyps removed by snare polypectomy. In the descending colon there was a 8 mm polyp removed by snare polypectomy. Rest of the sigmoid colon and rectum appeared normal. Retroflexion was performed in the rectum and no lesions were noted. Patient tolerated the procedure well. Impression: 1. Upper endoscopy revealed mild gastritis but no evidence of esophagitis or peptic ulcer disease 2. Colonoscopy revealed : 1 cm hepatic flexure colon polyp status post snare polypectomy 1 cm and 1.5 cm transverse colon polyp status post snare polypectomy 8 mm descending colon polyp status post polypectomy Recommendations: Findings of this examination were discussed with the patient as well as his family. He was advised to follow the biopsy results. If the biopsy reveals adenoma, recommended repeat colonoscopy in 3 years.
[2024-04-26 08:43] VITALS: BP 147/78; PULSE 65
== END 2024-04-26 08:57 | disposition home or self-care (01) ==
LOC: ORWHC2ENDO 07:02
PROVIDERS: ATTEND Internal Medicine Gastroenterology
DX: K31.9 Disease of stomach and duodenum, unspecified (principal); K21.9 Gastro-esophageal reflux disease without esophagitis; D12.3 Benign neoplasm of transverse colon; D12.4 Benign neoplasm of descending colon; Z87.19 Personal history of other diseases of the digestive system
CPT/HCPCS: 43239; 45385; 88305

== ENCOUNTER → 2024-11-24 | Outpatient (CLI) | payer MEDICARE, OTHER ==
[2024-11-24 10:57] VITALS: BP 138/85; PULSE 109; RESP 16; TEMP 98
--- NOTE | 2024-11-24 14:23 | P.PAINPG ---
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 Pt undewent a L RFA C5=C6/ C6-C7 in 2021 where he experienced 80% pain relief x 2 yrs s/p procedure. Pain level is currently at 9 /10 in intensity, constant, localized in L lower cervical spine, predominantly axial, dull in character without shooting pain. Pain is provoked as high as 8 /10 by movement and over head reaching. Pain is alleviated with PT in the past (2023), physician guided home exercise regimen 5 times weekly since 2023, injections, alternating heat & ice, medications, repositioning and rest. Interventional pain procedures completed include L RFA C5-C6, C6-C7 (2021) Patient is currently on Flexeril fr Dr Pacheco Patient denies any side effects of the medication(s), denies excessive drowsiness or sleepiness, denies suicidal ideation and reports that the current pain medication is helping to control the pain and improve activities of daily living. Patient denies any motor or sensory deficits. Patient denies any fever or night sweats, denies any change in the bowel movements or urination. Physical Examination: -Constitutional: Cooperative. Not in acute distress . - Neurologic: Cranial nerve II to XII intact. No focal neurological deficits. - Psychatric: Alert & oriented x 3. Matching mood & appropriate affect. Judgment and insight intact. - Musculoskeletal: Cervical spine: Muscle bulk/ tone/ strength in the bilateral upper extremities normal Vertebral body tenderness to palpation over Spurling test positive Distraction test positive Facet loading test positive L C5-C6/ C6-C7 Thoracic spine Muscle bulk / tone/ strength in the bilateral paraspinal muscles normal Vertebral body tender to palpation over Facet loading test positive Lumbar spine: Motor bulk/ tone/ strength lower extremities , thigh and legs : 5/5 Deep tendon reflexes : Normal Knee Jerk. Normal Ankle Jerk . Vertebral body tenderness to palpation over Lumbar Facet Loading Test positive Straight Leg Raise: positive at 30 degrees right side/ left side Gaenslen's Test positive Sacral spine : Severe tenderness over the Sacroiliac joint: right side / left side Range of motion: Flexion of the lumbar spine <60 degrees Range of motion: Extension of the lumbar spine <20 degrees Gaenslen's Test positive Yony's Test positive Mary Ann test: positive right side / left side Thigh Thrust Test Sacral Thrust Test Assessment and plan: Chronic neck pain secondary to cervical radiculopathy , spondylosis with facet arthropathy without myelopathy Recommendation of L RFA C5-C6/ C6-C7. Risks, benefits of procedure discussed and pt verbalized understanding. Protocol for discontinuation/ continuation of medications krystal procedure discussed. Minimal anesthesia including Fentanyl and Versed if clinically indicated. All patient questions answered I have spent less than 30 minutes on patient care today. Dr Ruth was available by phone for the evaluation of this patient. The time was used to review the medical records including relevant urine studies and Prescription history (MAPs), review of the available imaging, evaluation and examination of the patient, coordination of care with the medical staff and if applicable referring physicians, as well as creation of the medical record - Pain Location Bilateral Lower Neck Non-Pharmacological Interventions: Heat, Ice, Inactivity, Physical Therapy, Position/Reposition, Relaxation Technique, Sitting Pharmacological Interventions: Block, Epidural, PRN Medication PQRS Narrative: Smoking Status Current every day smoker Blood Pressure 138/85 Pain Intensity [Bilateral 4 Lower Neck] Scale Used Numeric (1 - 10) Hx Alcohol Use (MH) No Home Medications: Ambulatory Orders ALPRAZolam [Xanax] 0.5 mg PO BID PRN 09/23/18 FLUoxetine HCL [PROzac] 20 mg PO DAILY 01/01/19 Aspirin 81 mg PO DAILY 12/19/21 Cyclobenzaprine [Flexeril] 10 mg PO TID PRN 02/21/22 Atorvastatin [Lipitor] 10 mg PO HS 04/09/22 Albuterol Inhaler [Ventolin Hfa Inhaler] 04/25/24 Budesonide/Formoterol Fumarate [Symbicort 80-4.5 Mcg Inhaler] 04/25/24 Cyanocobalamin [Vitamin B-12] 04/25/24 Levothyroxine Sodium [Synthroid] 25 mcg PO DAILY 04/25/24 Multivitamin [Multivitamins Adult Gummies] 04/25/24 Omeprazole 20 mg PO HS 04/25/24 QUEtiapine [SEROquel] 50 mg PO HS 04/25/24 QUEtiapine [SEROquel] 100 mg PO DAILY 04/25/24 Controlled Substance Measures - Controlled Substance Measures Is patient prescribed a controlled substance at discharge?: No
== END ==
LOC: PNWHC3 09:44
PROVIDERS: ATTEND Specialist
DX: M47.22 Other spondylosis with radiculopathy, cervical region (principal); G89.29 Other chronic pain; F17.210 Nicotine dependence, cigarettes, uncomplicated; Z88.0 Allergy status to penicillin
CPT/HCPCS: 99211

== ENCOUNTER 2024-12-13 06:20 | Day surgery (SDC) | payer MEDICARE, OTHER ==
[2024-12-12 09:28] VITALS: BMI 29.8
[2024-12-13] MEDS: LACTATED RINGERS 1,000 ML IV SCH (07:06)
[2024-12-13 07:09] VITALS: TEMP 97
[2024-12-13] MEDS: IV FLUID CONTINUATION 1,000 ML IV ONE (07:09)
[2024-12-13] MEDS ORDERED: MIDAZOLAM 2 MG/2 ML VIAL ONE (07:43)
[2024-12-13] MEDS ORDERED: ROPIVACAINE 5MG/ML 20ML VIAL ONE (07:43)
[2024-12-13] MEDS ORDERED: fentaNYL (PF) 50 MCG/ML 2 ML AMP ONE (07:43)
[2024-12-13] MEDS: IV FLUID CONTINUATION 600 ML IV ONE (08:31)
--- NOTE | 2024-12-13 08:35 | FL ---
EXAMINATION TYPE: FL guided pain mgmt statistic Intraoperative/procedural fluoroscopic services were provided. CLINICAL INDICATION:Male, 59 years old with history of RF CERVICAL; , [facility] FINDINGS: Multiple fluoroscopic images for RF cervical 5-7. No radiographic evidence for complication. Total fluoroscopy time is 76.6 seconds. DAP: [id number] Please see the operative/procedural note for further details. [facility], , 12/13/2024 8:33 AM
[2024-12-13 08:50] VITALS: BP 129/93; PULSE 89; RESP 16
--- NOTE | 2024-12-13 09:16 | P.PCN ---
Description of Procedure: Preprocedure diagnosis. Cervical spondylosis. Cervical facet joint arthropathy. Postprocedure diagnosis. As above. Procedure done. Left C6-7, C5-6 facet joint (C 5,6,7 medial branch of dorsal ramus ) radiofrequency ablation under fluoroscopic guidance. Anesthesia. IV sedation with versed 2mg and fentanyl 50 microgram. Continuous pulse ox, EKG, blood pressure and verbal communication was maintained with the patient in OR. Sedation time-start 743 ,stop 820. Blood loss. None. Indication. Patient has got the diagnoses of cervical spondylolysis, facet joint arthropathy with neck pain. Diagnostic medial branch block relieved significant pain. Discussed with the patient procedure, alternatives, complications including infection, bleeding, nerve damage, paralysis all of which could be permanent. Patient understands and all questions are answered. Procedure note. After getting consent patient in OR in prone position. Back of the neck was prepped with chlorhexidine and draped in sterile fashion. After injecting 5 mL of plain 1% lidocaine subcutaneously, a 20-gauge RFA needle was introduced under tunnel vision of the fluoroscope AP view at the waist of the articular pillar (lateral mass) at C7 vertebral level. In the lateral view of the fluoroscope it was confirmed that the tip of the needle stayed within the dorsal half of the articular pillar (lateral mass). C6-7 facet joint was targeted by blocking C6 and C7 medial branch, C5-6 facet joint was targeted by blocking C5 and C6 medial branch . After subcutaneous injection of lidocaine, RFA needle were introduced under tunnel vision of the fluoroscope AP view at the waist of the articular pillars (lateral mass) at C5 vertebral level. In the l ateral view of the fluoroscope it was confirmed that the tip of the needle stayed within the dorsal half of the articular pillar (lateral mass). After subcutaneous injection of lidocaine, RFA needle were introduced under tunnel vision of the fluoroscope AP view at the waist of the articular pillars (lateral mass) at C6 vertebral level. In the lateral view of the fluoroscope it was confirmed that the tip of the needle stayed within the dorsal half of the articular pillar (lateral mass). . After positive sensory and negative motor stimulation,injection of 1 ml of 0.5% Ropivacaine, radiofrequency ablation was done at 80 C's for 90 seconds. Second lesion was done at the same settings after rotating the needls 180 degrees. After the procedure needle was taken out and bandage was applied. Disposition. Patient tolerated the procedure well. No complication. Discharged home in stable condition.
== END 2024-12-13 09:01 | disposition home or self-care (01) ==
LOC: ORPAIN 06:20
PROVIDERS: ATTEND Pain Medicine Interventional Pain Medicine
DX: M47.812 Spondylosis without myelopathy or radiculopathy, cervical region (principal)
CPT/HCPCS: 64633; 64634; J2250; J3010; J2795; 99152; 99153

== ENCOUNTER → 2025-01-11 | Outpatient (CLI) | payer MEDICARE, OTHER ==
[2025-01-11 10:15] VITALS: BP 123/92; PULSE 94; RESP 17
--- NOTE | 2025-01-11 15:54 | P.PAINPG ---
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 Pt states he experienced 70% pain relief s/p procedure. Pt states he und erwent a R RFA of the C5-C6/ C6-C7 in Mar 2022 and he experienced 90% x 2 yrs s/p procedure. Pain level is currently at 8 /10 in intensity, constant, localized in R lower cervical spine, predominantly axial, sharp in character without shooting pain. Pain is provoked by movement and over head reaching. Pain is alleviated with PT in the past (2023), physician guided home exercise regimen 5 times weekly since 2023, injections, alternating heat & ice, medications, repositioning and rest. Interventional pain procedures completed include L RFA C5-C7 x2 (2021, 12/23), R RFA C5-C7 (04/21) Patient is currently on Flexeril fr Dr Pacheco Patient denies any side effects of the medication(s), denies excessive drowsiness or sleepiness, denies suicidal ideation and reports that the current pain medication is helping to control the pain and improve activities of daily living. Patient denies any motor or sensory deficits. Patient denies any fever or night sweats, denies any change in the bowel movements or urination. Physical Examination: -Constitutional: Cooperative. Not in acute distress . - Neurologic: Cranial nerve II to XII intact. No focal neurological deficits. - Psychatric: Alert & oriented x 3. Matching mood & appropriate affect. Judgment and insight intact. - Musculoskeletal: Cervical spine: Muscle bulk/ tone/ strength in the bilateral upper extremities normal Vertebral body tenderness to palpation over Spurling test positive Distraction test positive Facet loading test positive R C5-C6/ C6-C7 Thoracic spine Muscle bulk / tone/ strength in the bilateral paraspinal muscles normal Vertebral body tender to palpation over Facet loading test positive Lumbar spine: Motor bulk/ tone/ strength lower extremities , thigh and legs : 5/5 Deep tendon reflexes : Normal Knee Jerk. Normal Ankle Jerk . Vertebral body tenderness to palpation over Lumbar Facet Loading Test positive Straight Leg Raise: positive at 30 degrees right side/ left side Gaenslen's Test positive Sacral spine : Severe tenderness over the Sacroiliac joint: right side / left side Range of motion: Flexion of the lumbar spine <60 degrees Range of motion: Extension of the lumbar spine <20 degrees Gaenslen's Test positive Yony's Test positive Mary Ann test: positive right side / left side Thigh Thrust Test Sacral Thrust Test Imaging: MRI non contrast cervical spine from 10/11/24 reviewed Assessment and plan: Chronic neck pain secondary to cervical radiculopathy , spondylosis with facet arthropathy without myelopathy Recommendation of R RFA C5-C6/ C6-C7. Risks, benefits of procedure discu ssed and pt verbalized understanding. Protocol for discontinuation/ continuation of medications krystal procedure discussed. Minimal anesthesia including Fentanyl and Versed if clinically indicated. All patient questions answered I have spent less than 30 minutes on patient care today. Dr Ruth was available by phone for the evaluation of this patient. The time was used to review the medical records including relevant urine studies and Prescription history (MAPs), review of the available imaging, evaluation and examination of the patient, coordination of care with the medical staff and if applicable referring physicians, as well as creation of the medical record PQRS Narrative: Smoking Status Current every day smoker Hx Alcohol Use (MH) No Home Medications: Ambulatory Orders ALPRAZolam [Xanax] 0.5 mg PO BID PRN 09/23/18 FLUoxetine HCL [PROzac] 20 mg PO DAILY 01/01/19 Aspirin 81 mg PO DAILY 12/19/21 Cyclobenzaprine [Flexeril] 10 mg PO TID PRN 02/21/22 Atorvastatin [Lipitor] 10 mg PO HS 04/09/22 Budesonide/Formoterol Fumarate [Symbicort 80-4.5 Mcg Inhaler] 1 puff INHALATION DAILY 04/25/24 Cyanocobalamin [Vitamin B-12] 500 mcg PO DAILY 04/25/24 Levothyroxine Sodium [Synthroid] 25 mcg PO DAILY 04/25/24 Multivitamin [Multivitamins Adult Gummies] 1 each PO DAILY 04/25/24 Omeprazole 20 mg PO HS 04/25/24 QUEtiapine [SEROquel] 50 mg PO HS 04/25/24 QUEtiapine [SEROquel] 100 mg PO DAILY 04/25/24 L.acidoph,Paracasei, B.lactis [Probiotic] 1 each PO DAILY 12/12/24 Losartan Potassium 50 mg PO DAILY 12/12/24 Controlled Substance Measures - Controlled Substance Measures Is patient prescribed a controlled substance at discharge?: No
== END ==
LOC: PNWHC3 09:33
PROVIDERS: ATTEND Specialist
DX: M47.22 Other spondylosis with radiculopathy, cervical region (principal); G89.29 Other chronic pain; F17.200 Nicotine dependence, unspecified, uncomplicated; Z88.0 Allergy status to penicillin
CPT/HCPCS: 99212

== ENCOUNTER 2025-01-31 08:41 | Day surgery (SDC) | payer MEDICARE, OTHER ==
[2025-01-27 15:41] VITALS: BMI 29.0
[~2025-01-31 08:41] MED LIST changes: +LACTATED RINGERS 1,000 ML IV SCH; -LIDOCAINE 1% (10MG/ML) FOR IV START INTRADERMA PRN
[2025-01-31 09:20] VITALS: TEMP 97.5
[2025-01-31 09:24] VITALS: PULSE 100
[2025-01-31] MEDS ORDERED: ROPIVACAINE 5 MG/ML 30 ML VIAL ONE (09:39)
[2025-01-31] MEDS ORDERED: fentaNYL (PF) 50 MCG/ML 2 ML AMP ONE (09:39)
[2025-01-31] MEDS ORDERED: MIDAZOLAM 2 MG/2 ML VIAL ONE (09:39)
--- NOTE | 2025-01-31 10:09 | P.PCN ---
Date of Procedure: 01/31/25 Description of Procedure: Preprocedure diagnosis. Cervical spondylosis. Cervical facet joint arthropathy. Postprocedure diagnosis. As above. Procedure done. Right C6-7, C5-6 facet joint (C 5,6,7 medial branch of dorsal ramus ) radiofrequency ablation under fluoroscopic guidance. Anesthesia. IV sedation with versed 1mg and fentanyl 100 microgram. Continuous pulse ox, EKG, blood pressure and verbal communication was maintained with the patient in OR. Sedation time-start 934 ,stop 1005. Blood loss. None. Indication. Patient has got the diagnoses of cervical spondylolysis, facet joint arthropathy with neck pain. Diagnostic medial branch block relieved significant pain. Discussed with the patient procedure, alternatives, complications including infection, bleeding, nerve damage, paralysis all of which could be permanent. Patient understands and all questions are answered. Procedure note. After getting consent patient in OR in prone position. Back of the neck was prepped with chlorhexidine and draped in sterile fashion. After injecting 5 mL of plain 1% lidocaine subcutaneously, a 20-gauge RFA needle was introduced under tunnel vision of the fluoroscope AP view at the waist of the articular pillar (lateral mass) at C7 vertebral level. In the lateral view of the fluoroscope it was confirmed that the tip of the needle stayed within the dorsal half of the articular pillar (lateral mass). C6-7 facet joint was targeted by blocking C6 and C7 medial branch, C5-6 facet joint was targeted by blocking C5 and C6 medial branch . After subcutaneous injection of lidocaine, RFA needle were introduced under tunnel vision of the fluoroscope AP view at the waist of the articular pillars (lateral mass) at C5 vertebral level. In the lateral view of the fluoroscope it was confirmed that the tip of the needle stayed within the dorsal half of the articular pillar (lateral mass). After subcutaneous injection of lidocaine, RFA needle were introduced under tunnel vision of the fluoroscope AP view at the waist of the articular pillars (lateral mass) at C6 vertebral level. In the lateral view of the fluoroscope it was confirmed that the tip of the needle stayed within the dorsal half of the articular pillar (lateral mass). . After positive sensory and negative motor stimulation,injection of 1 ml of 0.5% Ropivacaine, radiofrequency ablation was done at 80 C's for 90 seconds. Second lesion was done at the same settings after rotating the needls 180 degrees. After the procedure needle was taken out and bandage was applied. Disposition. Patient tolerated the procedure well. No complication. Discharged home in stable condition.
[2025-01-31] MEDS: IV FLUID CONTINUATION 1,000 ML IV ONE (10:14)
[2025-01-31 10:19] VITALS: RESP 16
[2025-01-31 10:33] VITALS: BP 140/100
--- NOTE | 2025-01-31 21:05 | FL ---
Fluoroscopy INDICATION: Pain FINDINGS: Fluoroscopy time: 25.9 seconds. Total dose area product (DAP) in uGy*m?, mGy*cm? (or similar): 0.78458 Images obtained: 3. Images document [place] directed towards the cervical spine IMPRESSION: 1. Documentation of fluoroscopy. [facility], , 01/31/2025 9:03 PM
== END 2025-01-31 10:48 | disposition home or self-care (01) ==
LOC: ORPAIN 08:41
PROVIDERS: ATTEND Anesthesiology
DX: M47.812 Spondylosis without myelopathy or radiculopathy, cervical region (principal); Z88.0 Allergy status to penicillin
CPT/HCPCS: 64633; 64634; J2250; J3010; J2795; 99152; 99153

== ENCOUNTER → 2025-02-23 | Outpatient (CLI) | payer MEDICARE, OTHER ==
[2025-02-23 10:22] VITALS: BP 106/77; PULSE 104; RESP 18; TEMP 98.7
--- NOTE | 2025-02-23 14:59 | P.PAINPG ---
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 Pt states he experienced 40% pain relief s/p procedure. Pain level is currently at 6 /10 in intensity, constant, localized in R cervical spine, predominantly axial, sharp in character w shooting pain to the L shoulder. Pain is provoked by movement and over head reaching. Pain is alleviated with PT in the past (2023), physician guided home exercise regimen 5 times weekly since 2023, injections, alternating heat & ice, medications, repositioning and rest. Interventional pain procedures completed include L RFA C5-C7 x2 (2021, 12/23), R RFA C5-C7 x2 (04/21, 01/31/25) Patient is currently on Flexeril fr Dr Pacheco Patient denies any side effects of the medication(s), denies excessive drowsiness or sleepiness, denies suicidal ideation and reports that the current pain medication is helping to control the pain and improve activities of daily living. Patient denies any motor or sensory deficits. Patient denies any fever or night sweats, denies any change in the bowel movements or urination. Physical Examination: -Constitutional: Cooperative. Not in acute distress . - Neurologic: Cranial nerve II to XII intact. No focal neurological deficits. - Psychatric: Alert & oriented x 3. Matching mood & appropriate affect. Judgment and insight intact. - Musculoskeletal: Cervical spine: Muscle bulk/ tone/ strength in the bilateral upper extremities normal Vertebral body tenderness to palpation over Spurling test positive Distraction test positive Facet loading test positive R C5-C6/ C6-C7 Thoracic spine Muscle bulk / tone/ strength in the bilateral paraspinal muscles normal Vertebral body tender to palpation over Facet loading test positive Lumbar spine: Motor bulk/ tone/ strength lower extremities , thigh and legs : 5/5 Deep tendon reflexes : Normal Knee Jerk. Normal Ankle Jerk . Vertebral body tenderness to palpation over Lumbar Facet Loading Test positive Straight Leg Raise: positive at 30 degrees right side/ left side Gaenslen's Test positive Sacral spine : Severe tenderness over the Sacroiliac joint: right side / left side Range of motion: Flexion of the lumbar spine <60 degrees Range of motion: Extension of the lumbar spine <20 degrees Gaenslen's Test positive Yony's Test positive Mary Ann test: positive right side / left side Thigh Thrust Test Sacral Thrust Test Imaging: MRI non contrast cervical spine from 10/11/24 reviewed Assessment and plan: Chronic neck pain secondary to cervical radiculopathy , spondylosis with facet arthropathy without myelopathy Will follow up w Dr Pacheco to explore additional treatment options. All patient questions answered I have spent less than 30 minutes on patient care today. Dr Ruth was available by phone for the evaluation of this patient. The time was used to review the medical records including relevant urine studies and Prescription history (MAPs), review of the available imaging, evaluation and examination of the patient, coordination of care with the medical staff and if applicable referring physicians, as well as creation of the medical record - Pain Location Right Neck Non-Pharmacological Interventions: Exercise, Ice, Massage, Physical Therapy Pharmacological Interventions: Scheduled Medication PQRS Narrative: Smoking Status Current every day smoker Hx Alcohol Use (MH) No Home Medications: Ambulatory Orders ALPRAZolam [Xanax] 0.5 mg PO BID PRN 09/23/18 FLUoxetine HCL [PROzac] 20 mg PO DAILY 01/01/19 Aspirin 81 mg PO DAILY 12/19/21 Cyclobenzaprine [Flexeril] 10 mg PO TID PRN 02/21/22 Atorvastatin [Lipitor] 10 mg PO HS 04/09/22 Budesonide/Formoterol Fumarate [Symbicort 80-4.5 Mcg Inhaler] 1 puff INHALATION DAILY 04/25/24 Cyanocobalamin [Vitamin B-12] 500 mcg PO DAILY 04/25/24 Levothyroxine Sodium [Synthroid] 25 mcg PO DAILY 04/25/24 Multivitamin [Multivitamins Adult Gummies] 1 each PO DAILY 04/25/24 Omeprazole 20 mg PO HS 04/25/24 QUEtiapine [SEROquel] 50 mg PO HS 04/25/24 QUEtiapine [SEROquel] 100 mg PO DAILY 04/25/24 L.acidoph,Paracasei, B.lactis [Probiotic] 1 each PO DAILY 12/12/24 Losartan Potassium 50 mg PO DAILY 12/12/24 Controlled Substance Measures - Controlled Substance Measures Is patient prescribed a controlled substance at discharge?: No
== END ==
LOC: PNWHC3 09:33
PROVIDERS: ATTEND Specialist
DX: M47.22 Other spondylosis with radiculopathy, cervical region (principal); F12.90 Cannabis use, unspecified, uncomplicated; F17.200 Nicotine dependence, unspecified, uncomplicated; Z88.0 Allergy status to penicillin
CPT/HCPCS: 99211